=== PATIENT | male | born 1950 | race American Indian/Alaskan Native ===

== ENCOUNTER 2018-04-27 05:39 | Day surgery (SDC) | payer MEDICARE ==
[2018-04-27] MEDS ORDERED: ANCEF/STERILE WATER 2 GM/20 ML 2 GM/20 ML SYRINGE IV NR (06:00)
[2018-04-27] MEDS ORDERED: ANCEF/STERILE WATER 2 GM/20 ML 2 GM/20 ML SYRINGE IV SCH (06:00)
[2018-04-27] MEDS ORDERED: NACL 0.9% 1000 ML 1,000 ML IV SCH (06:00)
[2018-04-27] MEDS ORDERED: SUBLIMAZE IV PRN (07:09)
[2018-04-27] MEDS ORDERED: ZOFRAN IV PRN (07:09)
[2018-04-27] MEDS ORDERED: DILAUDID ONE (07:15)
[2018-04-27] MEDS ORDERED: DIPRIVAN 10 MG/ML IV ONE (07:15)
[2018-04-27] MEDS ORDERED: XYLOCAINE MPF 2% ONE (07:16)
--- NOTE | 2018-04-27 07:27 | Anesthesia Day of Surgery ---
Anesthesia Day of Surgery - Day of Surgery Patient Examined: Yes Patient H&P Reviewed: Yes Patient is NPO: Yes
--- NOTE | 2018-04-27 07:27 | Anesthesia Consultation ---
Anesthesia Consult and Med Hx Date of service: 04/27/18 - Airway Anesthetic Teeth Evaluation: Poor (multiple missing teeth), Partials ROM Head & Neck: Adequate Mental/Hyoid Distance: Adequate Mallampati Class: Class III Intubation Access Assessment: Possibly Difficult - Pre-Operative Health Status ASA Pre-Surgery Classification: ASA4 Proposed Anesthetic Plan: General - Pulmonary Hx Smoking: Yes (smokes cigars) Hx Respiratory Symptoms: No COPD: Yes Hx Sleep Apnea: Yes (No CPAP) - Cardiovascular System Hx Hypertension: Yes Hx Coronary Artery Disease: Yes Hx Cardia Arrhythmia: Yes (a-fib; took xarelto through today) Hx Pacemaker: Yes Hx Heart Murmur: No - Central Nervous System Hx Back Pain: Yes (gout) Hx Psychiatric Problems: No - Gastrointestinal Hx Gastroesophageal Reflux Disease: No - Endocrine Hx Renal Disease: Yes Hx End Stage Renal Disease: Yes (has not started HD yet) Hx Non-Insulin Dependent Diabetes: Yes (took jenuvia today) Hx Thyroid Disease: No - Other Systems Hx Alcohol Use: Yes ("not anymore") Hx Cancer: No Hx Obesity: Yes (BMI 47.5)
[2018-04-27] MEDS ORDERED: HEPARIN 10,000 UNITS/10 ML ONE (07:33)
[2018-04-27] MEDS ORDERED: NACL 0.9% 500 ML 500 ML ONE (07:35)
[2018-04-27] MEDS ORDERED: PROTAMINE SULFATE ONE (07:37)
[2018-04-27] MEDS ORDERED: PAPAVERINE ONE (07:38)
[2018-04-27] MEDS ORDERED: THROMBIN (BOVINE) TP ONE ×2 (07:39→08:30)
[2018-04-27] MEDS ORDERED: XYLOCAINE 1% 20 mL ONE (07:40)
[2018-04-27 07:43] LABS: Calcium 9.3 mg/dL (8.4-10.2)
[2018-04-27] MEDS ORDERED: GELFOAM TP ONE ×2 (07:43→08:30)
[2018-04-27] MEDS ORDERED: VERSED IV NR (08:00)
[2018-04-27 08:09] LABS: Basophils # (Auto) 0.1 K/mm3 (0.0-0.1); Basophils % (Auto) 0.7 % (0.0-1.8); Eosinophils # (Auto) 0.4 K/mm3 (0.0-0.4); Eosinophils % (Auto) 3.9 % (0.0-4.3); Hematocrit 24.7 % (35.5-45.6); Hemoglobin 8.2 gm/dl (11.8-15.2); Lymphocytes # (Auto) 2.4 K/mm3 (1.2-5.4); Lymphocytes % (Auto) 23.1 % (13.4-35.0); Mean Corpuscular HGB Conc 33 % (32-34); Mean Corpuscular Volume 85 fl (84-94); Platelet Count 170 K/mm3 (140-440); Red Blood Count 2.89 M/mm3 (3.65-5.03); Red Cell Distribution Width 14.6 % (13.2-15.2)
[2018-04-27] MEDS ORDERED: NACL 0.9% 250ML IV ONE (08:30)
[2018-04-27] MEDS ORDERED: HEPARIN 10,000 UNITS/10 ML IV ONE (08:30)
[2018-04-27] MEDS ORDERED: MARCAINE-EPI/PF 0.5%-1:200,000 INFILTRATI ONE (08:30)
[2018-04-27] MEDS ORDERED: XYLOCAINE 1% 20 mL INFILTRATI ONE (08:30)
[2018-04-27] MEDS ORDERED: ZEMURON IV ONE (08:55)
[2018-04-27] MEDS ORDERED: NEO SYNEPHRINE/NS Syringe(OR USE) IV ONE (09:21)
[2018-04-27] MEDS ORDERED: BLOXIVERZ ONE (10:37)
[2018-04-27] MEDS ORDERED: ROBINUL ONE (10:37)
[2018-04-27] MEDS ORDERED: ZOFRAN ONE (10:38)
--- NOTE | 2018-04-27 11:08 | Short Stay Summary ---
Short Stay Documentation Date of service: 04/27/18 - History H&P: obtained from office - Allergies and Medications Current Medications: Allergies nifedipine [From Procardia] Allergy (Verified 04/23/18 10:36) muscle spasms Home Medications Medication Instructions Recorded Confirmed Last Taken Type Allopurinol 100 mg PO DAILY 02/12/18 04/27/18 04/25/18 09:00 History Furosemide [Lasix] 80 mg PO DAILY 02/12/18 04/27/18 04/25/18 09:00 History Lisinopril [Zestril TAB] 10 mg PO DAILY 02/12/18 04/27/18 04/25/18 09:00 History Metformin HCl 500 mg PO DAILY 02/12/18 04/27/18 04/25/18 09:00 History Potassium Chloride [Klor-Con M20] 20 meq PO DAILY 02/12/18 04/27/18 04/25/18 09:00 History Rivaroxaban [Xarelto] 20 mg PO DAILY 02/12/18 04/27/18 04/25/18 09:00 History Sitagliptin Phosphate [Januvia] 100 mg PO DAILY 02/12/18 04/27/18 04/25/18 09:00 History metOLazone [Metolazone] 5 mg PO DAILY 02/12/18 04/27/18 04/25/18 09:00 History HYDROcodone/APAP 5-325 [[place] 1 each PO Q6HR PRN #30 tablet 02/16/18 04/27/18 09:00 Rx 5/325] Active Medications Fentanyl (Sublimaze) 50 mcg IV Q5MIN PRN PRN Reason: Pain , Severe (7-10) Stop: 04/27/18 18:00 Sodium Chloride (Nacl 0.9% 1000 Ml) 1,000 mls @ 42 mls/hr IV DIRECT ARSLAN Last Admin: 04/27/18 06:55 Dose: 42 mls/hr Documented by: Cefazolin Sodium (Ancef/Sterile Water 2 Gm/20 Ml) 2 gm in 20 mls @ 120 mls/hr IV PREOP ARSLAN Stop: 04/27/18 23:59 Midazolam HCl (Versed) 2 mg IV PREOP NR Stop: 04/27/18 23:59 Last Admin: 02/12/19 07:55 Dose: 2 mg Documented by: Ondansetron HCl (Zofran) 4 mg IV ONCE PRN PRN Reason: Nausea And Vomiting Stop: 04/27/18 16:00 - Brief post op/procedure progress note Date of procedure: 04/27/18 Pre-op diagnosis: failing AVF left arm Post-op diagnosis: same Procedure: elevation of left upper arm basilic vein fistula Anesthesia: GETA, local (1/2 percent marcaine w epi) Findings: excellent thrill in fistual, 2+ radial pulse at end of case Surgeon: REBECCA COLE Complaint Investigations Officer: SIM IGLESIAS Estimated blood loss: 50-100ml Pathology: none Condition: stable - Hospital course Hospital course: benign - Disposition Condition at discharge: Good Short Stay Discharge Plan Activity: advance as tolerated Diet: advance as tolerated Wound: per your surgeon's advice Follow up with: REBECCA COLE MD [Staff Physician] - 14 Days Prescriptions: HYDROcodone/APAP 7.5-325 [[place] 7.5/325] 1 each PO Q6HR PRN #30 tablet PRN Reason: Pain
--- NOTE | 2018-04-27 11:27 | Operative Report ---
Operative Report Operative Report: Date of procedure: 04/27/2018 Pre-operative diagnosis: Failing arteriovenous fistula left upper extremity Post-operative diagnosis: Same Procedure name(s): Creation of left upper extremity arteriovenous fistula by upper arm basilic vein transposition Surgeon: Laith Arrington MD Painter Decorator: Dr. Rebecca Logan Anesthesia: Gen. with local supplementation EBL: Less than 100 mL Operative indication: Patient is a 67-year-old man with end-stage renal failure. There is a maturing basilic vein fistula in the left upper extremity. This requires elevation for use. Findings: Excellent thrill in the fistula the end of the procedure. Easily palpable left radial pulse at the end of the procedure. Procedure: The patient was placed on the table in the supine position. General anesthesia was given. The area over the left arm was prepped with ChloraPrep solution and draped in the usual sterile fashion. Ultrasound guidance was used to identify the location of the basilic vein. The area around the incision site was infiltrated with 1% Marcaine with epinephrine. A linear incision was made along the medial portion of the upper arm over the basilic vein. Dissection was carried out to identify the vein. All nerve structures were spared. All branches of the fistula were taken down with clips and 3-0 silk ties. A subcutaneous tunnel was made on the anterior surface of the upper arm. The tunnel was infiltrated with 1% Marcaine with epinephrine. It was also infiltrated with Exparel. Patient was heparinized with 2000 units of intravenous heparin. The vein was occluded near the arterial anastomosis. The vein was divided and hydrodilated with heparinized saline. The vein was then tunneled through the subcutaneous tunnel and redilated with heparinized saline to prevent any kinks or twisting in the fistula. An end to end anastomosis was created in a beveled fashion between the 2 ends of the vein at the arterial side of the fistula. The fistula was flushed and vented to remove any air or debris and then flow was started into the fistula with the development of an immediate and excellent thrill over the entire body of the fistula in the upper arm. Meticulous hemostasis was obtained. The wound was infiltrated with Exparel. Closure was done with 3-0 Vicryl on the subcutaneous tissue. 4-0 subcuticular Monocryl was used to close the skin. Sterile dressings were applied. Sponge, needle, and instrument counts were reported as correct. The patient tolerated the procedure well and left the operating room with an easily palpable left radial pulse and an easily palpable thrill in the arteriovenous fistula.
[2018-04-27] MEDS ORDERED: NORCO 7.5/325 ONE (11:44)
[2018-04-27 11:50] VITALS: BP 110/57
[2018-04-27] MEDS ORDERED: NORCO 7.5/325 PO ONE (12:00)
--- NOTE | 2018-04-27 14:12 | Post Anesthesia Evaluation ---
- Post Anesthesia Evaluation Patient Participated: Yes Airway Patent: Yes Stable Respiratory Function: Yes Nausea/Vomiting: No Temp > 96.8F: Yes Pain Manageable: Yes Adequeate Hydration: Yes Anesthesia Complications: No
== END 2018-04-27 12:40 | disposition home or self-care (01) ==
LOC: OR 05:39
PROVIDERS: ATTEND Surgery Vascular Surgery
DX: I13.2 Hypertensive heart and chronic kidney disease with heart failure and with stage 5 chronic kidney disease, or end stage renal disease (principal); E11.22 Type 2 diabetes mellitus with diabetic chronic kidney disease; N18.6 End stage renal disease; I50.9 Heart failure, unspecified; E11.40 Type 2 diabetes mellitus with diabetic neuropathy, unspecified; I25.10 Atherosclerotic heart disease of native coronary artery without angina pectoris; G62.9 Polyneuropathy, unspecified; J44.9 Chronic obstructive pulmonary disease, unspecified; E66.9 Obesity, unspecified; F17.210 Nicotine dependence, cigarettes, uncomplicated; M19.90 Unspecified osteoarthritis, unspecified site; Z72.89 Other problems related to lifestyle; Z95.0 Presence of cardiac pacemaker; Z68.42 Body mass index [BMI] 45.0-49.9, adult; Z98.890 Other specified postprocedural states; Z79.899 Other long term (current) drug therapy; Z79.84 Long term (current) use of oral hypoglycemic drugs; Z88.8 Allergy status to other drugs, medicaments and biological substances
CPT/HCPCS: 36415; 36821; 80048; 82962; 85025; A4649; C1757; J0690; J1170; J1644; J2250; J2370; J2405; J2704; J2710; J3010; J7030; J7040; J7050; J2440; J2720

== ENCOUNTER 2020-07-05 14:45 | Inpatient (IN) | payer MEDICARE ==
[2020-07-05] MEDS ORDERED: MORPHINE 4 MG/1 ML INJ IV ONE (20:26)
[2020-07-05] MEDS ORDERED: ONDANSETRON 4 MG/2 ML INJ IV ONE (20:26)
--- NOTE | 2020-07-05 20:29 | Emergency Department Report ---
<RACHELE GARNER III - Last Filed: 07/05/20 22:57> ED General Adult HPI - General Chief complaint: Skin/Abscess/Foreign Body Stated complaint: BIG BUMP IN GROIN Time Seen by Provider: 07/05/20 19:49 - Related Data Home Medications Medication Instructions Recorded Confirmed Last Taken Furosemide [Lasix TAB] 80 mg PO DAILY 02/12/18 04/27/18 04/25/18 09:00 Metformin HCl 500 mg PO DAILY 02/12/18 04/27/18 04/25/18 09:00 Potassium Chloride [Klor-Con M20] 20 meq PO DAILY 02/12/18 04/27/18 04/25/18 09:00 Rivaroxaban [Xarelto] 20 mg PO DAILY 02/12/18 04/27/18 04/25/18 09:00 Sitagliptin Phosphate [Januvia] 100 mg PO DAILY 02/12/18 04/27/18 04/25/18 09:00 allopurinoL [Allopurinol] 100 mg PO DAILY 02/12/18 04/27/18 04/25/18 09:00 lisinopriL [Zestril TAB] 10 mg PO DAILY 02/12/18 04/27/18 04/25/18 09:00 metOLazone [Metolazone] 5 mg PO DAILY 02/12/18 04/27/18 04/25/18 09:00 Previous Rx's Medication Instructions Recorded Last Taken Type HYDROcodone/APAP 5-325 [[place] 1 each PO Q6HR PRN #30 tablet 02/16/18 04/25/18 09:00 Rx 5/325] HYDROcodone/APAP 7.5-325 [[place] 1 each PO Q6HR PRN #30 tablet 04/27/18 Unknown Rx 7.5/325] Allergies Allergy/AdvReac Type Severity Reaction Status Date / Time nifedipine [From Procardia] Allergy muscle Verified 07/05/20 15:30 spasms ED Past Medical Hx - Medications Home Medications: Home Medications Medication Instructions Recorded Confirmed Last Taken Type Furosemide [Lasix TAB] 80 mg PO DAILY 02/12/18 04/27/18 04/25/18 09:00 History Metformin HCl 500 mg PO DAILY 02/12/18 04/27/18 04/25/18 09:00 History Potassium Chloride [Klor-Con M20] 20 meq PO DAILY 02/12/18 04/27/18 04/25/18 09:00 History Rivaroxaban [Xarelto] 20 mg PO DAILY 02/12/18 04/27/18 04/25/18 09:00 History Sitagliptin Phosphate [Januvia] 100 mg PO DAILY 02/12/18 04/27/18 04/25/18 09:00 History allopurinoL [Allopurinol] 100 mg PO DAILY 02/12/18 04/27/18 04/25/18 09:00 History lisinopriL [Zestril TAB] 10 mg PO DAILY 02/12/18 04/27/18 04/25/18 09:00 History metOLazone [Metolazone] 5 mg PO DAILY 02/12/18 04/27/18 04/25/18 09:00 History HYDROcodone/APAP 5-325 [[place] 1 each PO Q6HR PRN #30 tablet 02/16/18 04/27/18 04/25/18 09:00 Rx 5/325] HYDROcodone/APAP 7.5-325 [[place] 1 each PO Q6HR PRN #30 tablet 04/27/18 Unknown Rx 7.5/325] ED Course - Reevaluation(s) Reevaluation #1: I reviewed the findings and management of this patient in real-time and I have personally seen and examined this patient and participated in the decision making for this patient with the midlevel. Patient is a 69-year-old male who presents emergency room with complaints of left inguinal pain. Patient had a CT scan of the abdomen and it shows a left inguinal hernia with bowel and fat necrosis. I examined the patient. Patient's lung sounds are clear. Patient CV exam shows normal S1-S2. Abdominal exam is negative except for tenderness over the inguinal crease. Patient also found to have a periumbilical hernia that is nontender. I attempted to place the patient and Trendelenburg and reduce the inguinal hernia and the patient was unable to tolerate due to tenderness and the hernia was not reducible. 07/05/20 22:20 Reevaluation #2: I discussed all results with patient. I discussed plan of care with patient. Patient agrees with plan of care and admission. Patient to be admitted to the hospitalist service. 04/22/21 22:59 - Consultations Consultation #1: I discussed the case with general surgery, Dr. Zapata. Dr. Zapata wants patient mated to the hospital service for further evaluation and treatment. Dr. Zapata states she will see the patient in the morning. 07/05/20 22:32 Consultation #2: Hospitalist consulted for admission. Hospitalist to admit patient. 07/05/20 22:59 ED Medical Decision Making - Lab Data Result diagrams: 07/05/20 20:43 07/05/20 21:23 Critical Care Time: Yes Critical care time in (mins) excluding proc time.: 35 Critical Care Time: 35 minutes ED Disposition Clinical Impression: Incarcerated inguinal hernia, ESRD (end stage renal disease) Abdominal pain Qualifiers: Abdominal location: lower abdomen, unspecified Qualified Code(s): R10.30 - Lower abdominal pain, unspecified Disposition: -09 OP ADMIT IP TO THIS HOSP Is pt being admited?: Yes Does the pt Need Aspirin: No Condition: Critical Time of Disposition: 23:00 <OLIVIA RETANA - Last Filed: 07/06/20 00:45> ED General Adult HPI - General Source: patient Mode of arrival: Ambulatory Limitations: No Limitations - History of Present Illness Initial comments: 69-year-old male patient with history of end-stage renal disease (on dialysis) and umbilical hernia presents to the emergency department with complaints of nontraumatic left inguinal pain/swelling starting 4 days ago. He also endorses right testicular pain and painful urination. Denies fever, chills, nausea, vomiting, diarrhea, constipation, urinary retention, hematuria, penile discharge, testicular swelling. Denies other complaints at this time. ED Review of Systems ROS: Stated complaint: BIG BUMP IN GROIN Other details as noted in HPI Other: GENERAL: Negative for fever, chills, weight change, anorexia, fatigue. ENT: Negative for ear pain, difficulty hearing, sore throat, nasal congestion, epistaxis. CARDIOVASCULAR: Negative for chest pain, palpitations, lower extremity swelling. PULMONARY: Negative for cough, dyspnea, wheezing, orthopnea, cyanosis. GASTROINTESTINAL: Negative for abdominal pain, nausea, vomiting, diarrhea, constipation. GENITOURINARY: Positive for dysuria, testicular pain, inguinal pain/swelling. MUSCULOSKELETAL: Negative for joint pain, joint swelling, myalgias, back pain, neck pain. NEUROLOGICAL: Negative for headache, seizure, syncope, paresthesias, weakness. INTEGUMENTARY: Negative for erythema, rash, diaphoresis, laceration, ecchymosis. HEMATOLOGICAL: Negative for hemoptysis, hematemesis, hematochezia, hematuria. PSYCHIATRIC: Negative for hallucinations, suicidal ideation, homicidal ideation, anxiety, depression. ED Past Medical Hx - Past Medical History Hx Hypertension: Yes Hx Congestive Heart Failure: Yes Hx Diabetes: Yes Hx Renal Disease: Yes (DIALYSIS) Hx Arthritis: Yes (All joints) Hx COPD: Yes - Surgical History Hx Pacemaker: Yes - Social History Smoking Status: Current Some Day Smoker ED Physical Exam - General Limitations: No Limitations - Other Other exam information: General: Awake and alert. No acute distress. Head: Atraumatic, normocephalic. Eyes: EOMI. Pupils are equal and round. Normal sclera and conjunctiva. ENT: Oral mucosa is moist. Normal pharyngeal exam. Neck: Supple. No lymphadenopathy. Pulmonary: No respiratory distress. Clear to auscultation bilaterally. Cardiac: Regular rate and rhythm. Pulses are palpable and equal bilaterally. No lower extremity cyanosis or edema. Skin: Warm and dry. No rashes. Abdomen: There is a nonreducible periumbilical hernia without overlying tenderness. There is also a nonreducible left inguinal hernia with significant tenderness. Abdomen is otherwise soft, nondistended. Bowel sounds present. Pain is appropriately proportional to exam findings. Back: Normal alignment. No CVA tenderness. Extremities: Symmetrical. Full range of motion intact. Neurological: Alert and oriented, appropriately interactive, no focal deficits. Psych: Cooperative. Appropriate mood and affect. Speech is evenly metered. Thoughts are logically construed. ED Course Vital Signs 07/05/20 15:28 Temperature 97.9 F Pulse Rate 101 H Respiratory 24 Rate Blood Pressure 135/66 O2 Sat by Pulse 75 L Oximetry ED Medical Decision Making - Lab Data Result diagrams: 07/05/20 20:43 07/05/20 21:23 - Radiology Data [facility] [address] [place] [address] Cat Scan Report Signed Patient: BASILIO STANLEY MR#: [id number] : 1950 Acct:[id number] Age/Sex: 69 / M ADM Date: 07/05/20 Loc: ED Attending Dr: Ordering Physician: AAMIR SAWANT Date of Service: 07/05/20 Procedure(s): CT abdomen pelvis wo con Accession Number(s): [id number] cc: AAMIR SAWANT CT ABDOMEN AND PELVIS WITHOUT CONTRAST INDICATION / CLINICAL INFORMATION: LEFT Inguinal mass - possible hernia. TECHNIQUE: Axial CT images were obtained through the abdomen and pelvis without IV contrast. All CT scans at this location are performed using CT dose reduction for ALARA by means of automated exposure control. COMPARISON: 06/13/2012 FINDINGS: LOWER CHEST: Mild subsegmental right lower lung atelectasis. Mild coronary artery atherosclerotic calcification. HEPATOBILIARY: Tiny calcified gallstones. No biliary ductal dilatation. No significant focal hepatic abnormality. PANCREAS/SPLEEN/ADRENALS: No significant abnormality. GENITOURINARY: Renal morphology suggests chronic medical disease. No obstructive uropathy or nephrolithiasis. Ureters demonstrate no significant abnormality. Bladder demonstrates no significant abnormality. GASTROINTESTINAL/MESENTERY: No bowel obstruction or inflammation. Medium-sized left inguinal hernia containing a loop of the distal descending/proximal sigmoid colon evidence of obstruction. Mild associated mesenteric fat necrosis. No free air or significant free fluid. RETROPERITONEUM: No significant adenopathy. REPRODUCTIVE ORGANS: No significant abnormality. VASCULAR: No significant abnormality. BODY WALL: Medium-sized fat-containing periumbilical hernia with mild fat necrosis. SKELETAL SYSTEM: Diffuse degenerative changes without acute fracture or aggressive appearing osseous lesion. IMPRESSION: 1. Medium-sized left inguinal hernia containing a loop of distal colon without evidence of obstruction. Mild associated mesenteric fat necrosis is present. 2. Cholelithiasis. 3. Medium-sized fat-containing periumbilical hernia with mild fat necrosis. 4. Additional findings as above. Signer Name: Jacques Dey MD Signed: 07/05/2020 9:38 PM Workstation Name: [id number] Transcribed By: RH Dictated By: JACQUES DEY III Electronically Authenticated By: JACQUES DEY III Signed Date/Time: 07/05/202137 DD/ 31 TD/TT: - Medical Decision Making Differential diagnosis including but not limited to: incarcerated hernia, str angulated hernia, mesenteric ischemia, bowel obstruction, bowel perforation, volvulus, malignancy, peritonitis On reevaluation, patient remains stable. Repeat abdominal exam without signs of peritonitis. CT of the abdomen/pelvis performed without contrast (due to patient's renal dysfunction) demonstrates medium size left inguinal and periumbilical hernias. Left inguinal hernia contains a loop of distal colon with surrounding mesenteric fat necrosis. No evidence of strangulation. Multiple attempts to reduce hernia at the bedside were unsuccessful. Case was discussed with Dr. Zapata, general surgery, who agrees to evaluate the patient on admission and recommends admitting the patient to the hospital medicine service. Case discussed with Dr. Cooper, hospitalist, who agrees to admit. Aamir bray expressed understanding and is agreeable to plan of care. Case discussed with Dr. Garner, attending emergency physician, who personally examined the patient and agrees with diagnostic work-up/plan of care. Critical care attestation.: If time is entered above; I have spent that time in minutes in the direct care of this critically ill patient, excluding procedure time. ED Disposition Is pt being admited?: Yes Does the pt Need Aspirin: No
[2020-07-05 21:00] LABS: Red Blood Count 3.85 M/mm3 (3.65-5.03)
[2020-07-05 21:01] LABS: Hematocrit 36.7 % (35.5-45.6); Hemoglobin 11.9 gm/dl (11.8-15.2); Mean Corpuscular HGB Conc 33 % (32-34); Mean Corpuscular Volume 95 fl (84-94); Platelet Count 284 K/mm3 (140-440); Red Cell Distribution Width 15.1 % (13.2-15.2)
[2020-07-05 21:02] LABS: Basophils % (Auto) 0.9 % (0.0-1.8); Eosinophils % (Auto) 2.4 % (0.0-4.3); Lymphocytes # (Auto) 1.6 K/mm3 (1.2-5.4); Lymphocytes % (Auto) 16.9 % (13.4-35.0); Monocytes % (Auto) 11.1 % (0.0-7.3)
[2020-07-05 21:03] LABS: Basophils # (Auto) 0.1 K/mm3 (0.0-0.1); Eosinophils # (Auto) 0.2 K/mm3 (0.0-0.4)
--- NOTE | 2020-07-05 21:43 | Cat Scan Report ---
CT ABDOMEN AND PELVIS WITHOUT CONTRAST INDICATION / CLINICAL INFORMATION: LEFT Inguinal mass - possible hernia. TECHNIQUE: Axial CT images were obtained through the abdomen and pelvis without IV contrast. All CT scans at [facility] location are performed using CT dose reduction for ALARA by means of automated exposure control. COMPARISON: 06/13/2012 FINDINGS: LOWER CHEST: Mild subsegmental right lower lung atelectasis. Mild coronary artery atherosclerotic princess cification. HEPATOBILIARY: Tiny calcified gallstones. No biliary ductal dilatation. No significant focal hepatic abnormality. PANCREAS/SPLEEN/ADRENALS: No significant abnormality. GENITOURINARY: Renal morphology suggests chronic medical disease. No obstructive uropathy or nephroli thiasis. Ureters demonstrate no significant abnormality. Bladder demonstrates no significant abnormal ity. GASTROINTESTINAL/MESENTERY: No bowel obstruction or inflammation. Medium-sized left inguinal hernia c ontaining a loop of the distal descending/proximal sigmoid colon evidence of obstruction. Mild associ ated mesenteric fat necrosis. No free air or significant free fluid. RETROPERITONEUM: No significant adenopathy. REPRODUCTIVE ORGANS: No significant abnormality. VASCULAR: No significant abnormality. BODY WALL: Medium-sized fat-containing periumbilical hernia with mild fat necrosis. SKELETAL SYSTEM: Diffuse degenerative changes without acute fracture or aggressive appearing osseous lesion. IMPRESSION: 1. Medium-sized left inguinal hernia containing a loop of distal colon without evidence of obstructio n. Mild associated mesenteric fat necrosis is present. 2. Cholelithiasis. 3. Medium-sized fat-containing periumbilical hernia with mild fat necrosis. 4. Additional findings as above. Signer Name: Ayo Dey MD Signed: 07/05/2020 9:38 PM Workstation Name: [id number]
[2020-07-05 21:52] LABS: Albumin 4.1 g/dL (3.9-5); Calcium 9.4 mg/dL (8.4-10.2)
[2020-07-05] MEDS ORDERED: ONDANSETRON 4 MG/2 ML INJ IV PRN (23:20)
[2020-07-05] MEDS ORDERED: ACETAMINOPHEN 325 MG TAB PO PRN (23:20)
--- NOTE | 2020-07-05 23:29 | History and Physical Report ---
History of Present Illness Date of examination: 07/05/20 Date of admission: 07/05/20 Chief complaint: Big bump in the groin History of present illness: 69-year-old male patient with history of end-stage renal disease on dialysis and umbilical hernia presents to the emergency department with complaints of nontraumatic left inguinal pain/swelling for the 4 days. He also endorses right testicular pain and painful urination. Denies fever, chills, nausea, vomiting, diarrhea, constipation, urinary retention, hematuria, penile discharge, testicular swelling. Denies other complaints at this time. In the emergency room CT scan of the abdomen shows medium sized left inguinal hernia containing a loop of distal colon without evidence of obstruction mild associated mesenteric fat necrosis is present. Cholelithiasis. Medium sized fat-containing periumbilical hernia with mild fat necrosis Past History Past Medical History: arthritis, COPD, diabetes, heart failure, hypertension, renal failure Medications and Allergies Allergies Allergy/AdvReac Type Severity Reaction Status Date / Time nifedipine [From Procardia] Allergy muscle Verified 07/05/20 15:30 spasms Home Medications Medication Instructions Recorded Confirmed Last Taken Type Furosemide [Lasix TAB] 80 mg PO DAILY 02/12/18 04/27/18 04/25/18 09:00 History Metformin HCl 500 mg PO DAILY 02/12/18 04/27/18 04/25/18 09:00 History Potassium Chloride [Klor-Con M20] 20 meq PO DAILY 02/12/18 04/27/18 04/25/18 09:00 History Rivaroxaban [Xarelto] 20 mg PO DAILY 02/12/18 04/27/18 04/25/18 09:00 History Sitagliptin Phosphate [Januvia] 100 mg PO DAILY 02/12/18 04/27/18 04/25/18 09:00 History allopurinoL [Allopurinol] 100 mg PO DAILY 02/12/18 04/27/18 04/25/18 09:00 History lisinopriL [Zestril TAB] 10 mg PO DAILY 02/12/18 04/27/18 04/25/18 09:00 History metOLazone [Metolazone] 5 mg PO DAILY 02/12/18 04/27/18 04/25/18 09:00 History HYDROcodone/APAP 5-325 [[place] 1 each PO Q6HR PRN #30 tablet 12/04/18 02/12/19 02/10/19 09:00 Rx 5/325] HYDROcodone/APAP 7.5-325 [[place] 1 each PO Q6HR PRN #30 tablet 04/27/18 Unknown Rx 7.5/325] Active Meds: Active Medications Acetaminophen (Acetaminophen 325 Mg Tab) 650 mg PO Q4H PRN PRN Reason: Pain MILD(1-3)/Fever >100.5/CHANG Albuterol/Ipratropium (Ipratropium/Albuterol Sulfate 3 Ml Ampul.Neb) 1 ampul IH Q6HRT ARSLAN Dextrose (Dextrose 50% In Water (25gm) 50 Ml Syringe) 50 ml IV Q30MIN PRN; Protocol PRN Reason: Hypoglycemia Famotidine (Famotidine 20 Mg/2 Ml Inj) 20 mg IV BID ARSLAN Sodium Chloride (Nacl 0.9% 1000 Ml) 1,000 mls @ 42 mls/hr IV DIRECT ARSLAN Insulin Human Lispro (Insulin Lispro 100 Unit/Ml) 0 unit SUB-Q Q6HR ARSLAN; Protocol Morphine Sulfate (Morphine 2 Mg/1 Ml Inj) 2 mg IV Q4H PRN PRN Reason: Pain, Moderate (4-6) Ondansetron HCl (Ondansetron 4 Mg/2 Ml Inj) 4 mg IV Q8H PRN PRN Reason: Nausea And Vomiting Sodium Chloride (Sodium Chloride 0.9% 10 Ml Flush Syringe) 10 ml IV BID ARSLAN Sodium Chloride (Sodium Chloride 0.9% 10 Ml Flush Syringe) 10 ml IV PRN PRN PRN Reason: LINE FLUSH Review of Systems Gastrointestinal: abdominal pain, other (Big bump in the left groin) Exam - Constitutional Vitals: Temp Pulse Resp BP Pulse Ox 97.9 F 101 H 24 135/66 75 L 07/05/20 15:28 07/05/20 15:28 07/05/20 15:28 07/05/20 15:28 07/05/20 15:28 General appearance: Present: no acute distress, well-nourished - EENT Eyes: Present: PERRL ENT: hearing intact, clear oral mucosa - Neck Neck: Present: supple, normal ROM - Respiratory Respiratory effort: normal Respiratory: bilateral: CTA - Cardiovascular Heart Sounds: Present: S1 & S2. Absent: rub, click - Extremities Extremities: pulses symmetrical, No edema Peripheral Pulses: within normal limits - Abdominal General gastrointestinal: Present: soft, non-tender, non-distended, normal bowel sounds, hernia, other (Big bump in the left groin) Male genitourinary: Present: normal - Integumentary Integumentary: Present: clear, warm, dry - Musculoskeletal Musculoskeletal: gait normal, strength equal bilaterally - Psychiatric Psychiatric: appropriate mood/affect, intact judgment & insight - Neurologic Neurologic: CNII-XII intact, moves all extremities Results - Labs CBC & Chem 7: 07/05/20 20:43 07/05/20 21:23 Labs: Laboratory Last Values WBC 9.5 K/mm3 (4.5-11.0) 07/05/20 20:43 RBC 3.85 M/mm3 (3.65-5.03) 07/05/20 20:43 Hgb 11.9 gm/dl (11.8-15.2) 07/05/20 20:43 Hct 36.7 % (35.5-45.6) 07/05/20 20:43 MCV 95 fl (84-94) H 07/05/20 20:43 MCH 31 pg (28-32) 07/05/20 20:43 MCHC 33 % (32-34) 07/05/20 20:43 RDW 15.1 % (13.2-15.2) 07/05/20 20:43 Plt Count 284 K/mm3 (140-440) 07/05/20 20:43 Lymph % (Auto) 16.9 % (13.4-35.0) 07/05/20 20:43 [place] % (Auto) 11.1 % (0.0-7.3) H 07/05/20 20:43 Eos % (Auto) 2.4 % (0.0-4.3) 07/05/20 20:43 Baso % (Auto) 0.9 % (0.0-1.8) 07/05/20 20:43 Lymph # (Auto) 1.6 K/mm3 (1.2-5.4) 07/05/20 20:43 [place] # (Auto) 1.0 K/mm3 (0.0-0.8) H 07/05/20 20:43 Eos # (Auto) 0.2 K/mm3 (0.0-0.4) 07/05/20 20:43 Baso # (Auto) 0.1 K/mm3 (0.0-0.1) 07/05/20 20:43 Seg Neutrophils % 68.7 % (40.0-70.0) 07/05/20 20:43 Seg Neutrophils # 6.5 K/mm3 (1.8-7.7) 07/05/20 20:43 Sodium 132 mmol/L (137-145) L 07/05/20 21:23 Potassium 4.2 mmol/L (3.6-5.0) 07/05/20 21:23 Chloride 95.3 mmol/L (98-107) L 07/05/20 21: Carbon Dioxide 23 mmol/L (22-30) 07/05/20 21:23 Anion Gap 18 mmol/L 07/05/20 21:23 BUN 38 mg/dL (9-20) H 07/05/20 21: Creatinine 6.9 mg/dL (0.8-1.3) H 07/05/20 21:23 Estimated GFR 10 ml/min 07/05/20 21:23 BUN/Creatinine Ratio 6 % 07/05/20 21: Glucose 82 mg/dL (75-100) 07/05/20 21: Lactic Acid 1.80 mmol/L (0.7-2.0) 07/05/20 20:43 Calcium 9.4 mg/dL (8.4-10.2) 07/05/20 21: Magnesium 2.10 mg/dL (1.7-2.3) 07/05/20 21: Total Bilirubin 0.40 mg/dL (0.1-1.2) 07/05/20 21: AST 25 units/L (5-40) 07/05/20 21: ALT 14 units/L (7-56) 07/05/20 21: Alkaline Phosphatase 97 units/L (35-129) 07/05/20 21:23 Total Protein 8.1 g/dL (6.3-8.2) 07/05/20 21:23 Albumin 4.1 g/dL (3.9-5) 07/05/20 21:23 Albumin/Globulin Ratio 1.0 % 07/05/20 21:23 - Imaging and Cardiology CT scan - abdomen: image reviewed Assessment and Plan VTE prophylaxis?: Chemical Plan of care discussed with patient/family: Yes - Patient Problems (1) Incarcerated inguinal hernia Current Visit: Yes Status: Acute Plan to address problem: Admit the patient to the medical telemetry. Nothing by mouth. Normal saline at the rate of 42 cc/h. Pepcid 20 mg IV every 12 hours. Will consult surgery for evaluation and possible surgery. We will hold the anticoagulation Xarelto. Check CBC BMP in the morning (2) Abdominal pain Current Visit: Yes Status: Acute Qualifiers: Abdominal location: lower abdomen, unspecified Qualified Code(s): R10.30 - Lower abdominal pain, unspecified Plan to address problem: N.p.o. Normal saline at the rate of 42 cc/h. Tylenol 650 mg p.o. every 6 hours as needed. Morphine 2 mg IV every 4 hours as needed. Will consult surgery for evaluation (3) Hypertension Current Visit: Yes Status: Acute Plan to address problem: Hydralazine 10 mg IV every 6 hours as needed. We will monitor the blood pressure closely. (4) COPD (chronic obstructive pulmonary disease) Current Visit: Yes Status: Acute Plan to address problem: Stable. Oxygen by nasal cannula 3 L/min. DuoNeb by nebulizer every 4 hours as needed. (5) ESRD (end stage renal disease) Current Visit: Yes Status: Acute Plan to address problem: Patient has end-stage renal disease and patient is on dialysis. We discontinue the Lasix and lisinopril. We consulted nephrology for evaluation and possible hemodialysis. BMP in the morning (6) Diabetes Current Visit: Yes Status: Acute Plan to address problem: We put the patient insulin sliding scale as per protocol and consult dietitian for diabetic education (7) DVT prophylaxis Current Visit: Yes Status: Acute Plan to address problem: We will hold the Xarelto for possible surgery in the morning. Patient is on SCD for DVT prophylaxis. Pepcid 20 mg IV twice daily for GI prophylaxis. Patient is a full code
[2020-07-05] MEDS ORDERED: SODIUM CHLORIDE 0.9% 1000 ML 1,000 ML IV SCH (23:30)
[2020-07-06] MEDS: MORPHINE 2 MG/1 ML INJ IV PRN ×3 (03:01→23:59)
[2020-07-06 05:23] LABS: Bacteria,Urine 3+ /HPF (Negative); Bilirubin,Urine NEG (Negative); Blood,Urine SM (Negative); Color,Urine Yellow (Yellow); Mucus,Urine FEW /HPF; Sperm,Urine 1+ /HPF (NP); Urobilinogen,Urine < 2.0 mg/dL (<2.0)
[2020-07-06 05:25] LABS: WBC,Urine > 182.0 /HPF (0.0-6.0)
[2020-07-06] MEDS: DEXTROSE 50% IN WATER (25GM) 50 ML SYRINGE IV PRN (06:28)
[2020-07-06] MEDS: INSULIN LISPRO 100 UNIT/ML SUB-Q SCH ×3 (07:45→18:29)
[2020-07-06] MEDS: IPRATROPIUM/ALBUTEROL SULFATE 3 ML AMPUL.NEB IH SCH ×4 (08:24→20:33)
[2020-07-06] MEDS ORDERED: BUPIVACAINE/PF (0.5%) 5 MG/1 ML 30 ML VIAL INFILTRATI ONE (08:31)
[2020-07-06] MEDS ORDERED: LIDOCAINE (1%) 10 MG/1 ML VIAL 20 ML MDV ONE (08:31)
[2020-07-06] MEDS: FAMOTIDINE 20 MG/2 ML INJ IV SCH (09:07)
--- NOTE | 2020-07-06 09:48 | Consultation ---
History of Present Illness Consult date: 07/06/20 Reason for consult: abdominal pain Chief complaint: Left groin pain, hernia - History of present illness History of present illness: 69-year-old male with a past medical history of end-stage renal disease on hemodialysis, CHF, atrial fibrillation on Xarelto, CAD who presented to the emergency room with complaints of left-sided groin pain. The patient states he has a known history of a left inguinal hernia for the past 3 to 4 days it has been more painful. He also notes a hernia at his umbilicus which he states is not symptomatic. Patient states that he has been having sharp pain in the area. He denies abdominal pain, nausea, vomiting. He states he has been having normal bowel movements and passing flatus. He has been tolerating a diet. He states that his last dose of Xarelto was yesterday. The patient is a poor historia and most of his past medical history is obtained from the chart. 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 He knows that he has CHF but does not know how well his heart is functioning. This morning he had a 22 beat run of V. tach. Surgery consulted for evaluation of left inguinal hernia. Past History Past Medical History: atrial fib, arthritis, CAD, COPD, diabetes, dialysis, ESRD, heart failure, hypertension, renal failure, other (Morbid obesity) Past Surgical History: Other (Achilles tendon repair x2, knee surgery, fistula) Social history: no significant social history Family history: no significant family history Medications and Allergies Allergies Allergy/AdvReac Type Severity Reaction Status Date / Time nifedipine [From Procardia] Allergy muscle Verified 07/05/20 15:30 spasms Home Medications Medication Instructions Recorded Confirmed Last Taken Type Furosemide [Lasix TAB] 80 mg PO DAILY 02/12/18 04/27/18 04/25/18 09:00 History Metformin HCl 500 mg PO DAILY 02/12/18 04/27/18 04/25/18 09:00 History Potassium Chloride [Klor-Con M20] 20 meq PO DAILY 02/12/18 04/27/18 04/25/18 09:00 History Rivaroxaban [Xarelto] 20 mg PO DAILY 02/12/18 04/27/18 04/25/18 09:00 History Sitagliptin Phosphate [Januvia] 100 mg PO DAILY 02/12/18 04/27/1819 09:00 History allopurinoL [Allopurinol] 100 mg PO DAILY 02/12/18 04/27/18 04/25/18 09:00 History lisinopriL [Zestril TAB] 10 mg PO DAILY 02/12/18 04/27/18 04/25/18 09:00 History metOLazone [Metolazone] 5 mg PO DAILY 02/12/18 04/27/18 04/25/18 09:00 History HYDROcodone/APAP 5-325 [[place] 1 each PO Q6HR PRN #30 tablet 02/16/18 04/27/18 04/25/18 09:00 Rx 5/325] HYDROcodone/APAP 7.5-325 [[place] 1 each PO Q6HR PRN #30 tablet 04/27/18 Unknown Rx 7.5/325] Active Meds: Active Medications Acetaminophen (Acetaminophen 325 Mg Tab) 650 mg PO Q4H PRN PRN Reason: Pain MILD(1-3)/Fever >100.5/CHANG Albuterol/Ipratropium (Ipratropium/Albuterol Sulfate 3 Ml Ampul.Neb) 1 ampul IH Q6HRT [facility] Last Admin: 07/06/20 08:24 Dose: 1 ampul Documented by: Dextrose (Dextrose 50% In Water (25gm) 50 Ml Syringe) 50 ml IV Q30MIN PRN; Protocol PRN Reason: Hypoglycemia Last Admin: 07/06/20 06:28 Dose: 50 ml Documented by: Famotidine (Famotidine 20 Mg/2 Ml Inj) 20 mg IV DAILY [facility] Last Admin: 07/06/20 09:07 Dose: 20 mg Documented by: Sodium Chloride (Nacl 0.9% 1000 Ml) 1,000 mls @ 42 mls/hr IV DIRECT [facility] Last Admin: 07/06/20 03:17 Dose: 42 mls/hr Documented by: Insulin Human Lispro (Insulin Lispro 100 Unit/Ml) 0 unit SUB-Q Q6HR ARSLAN; Protocol Last Admin: 07/06/20 07:45 Dose: Not Given Documented by: Morphine Sulfate (Morphine 2 Mg/1 Ml Inj) 2 mg IV Q4H PRN PRN Reason: Pain, Moderate (4-6) Last Admin: 07/06/20 03:01 Dose: 2 mg Documented by: Ondansetron HCl (Ondansetron 4 Mg/2 Ml Inj) 4 mg IV Q8H PRN PRN Reason: Nausea And Vomiting Sodium Chloride (Sodium Chloride 0.9% 10 Ml Flush Syringe) 10 ml IV BID ARSLAN Last Admin: 07/06/20 09:07 Dose: 10 ml Documented by: Sodium Chloride (Sodium Chloride 0.9% 10 Ml Flush Syringe) 10 ml IV PRN PRN PRN Reason: LINE FLUSH Review of Systems All systems: negative (10 point ROS performed and negative except for that listed in HPI) Exam Vital Signs Temp Pulse Resp BP Pulse Ox 97.9 F 101 H 24 135/66 75 L 07/05/20 15:28 07/05/20 15:28 07/05/20 15:28 07/05/20 15:07/05/20 15:28 Narrative exam: Gen.: Awake, alert, oriented 3. No apparent distress ENT: Trachea midline. No lymphadenopathy. No scleral icterus or conjunctival pallor CV: S1, S2 present Respiratory: No audible wheezes Abdomen: Soft, nondistended, nontender, obese. There is a nonreducible umbilical hernia containing fat. There are no skin changes or tenderness to palpation. No rebound, rigidity, guarding : There is a left inguinal hernia which is not reducible. There is moderate tenderness to palpation during reduction attempt. There are no skin changes. No hernia palpated on the right. Extremities: No clubbing, cyanosis, edema Results - Labs 07/05/20 20:43 07/05/20 21:23 Abnormal lab results 07/05/20 07/05/20 07/06/20 Range/Units 20:43 21:23 04:58 MCV 95 H (84-94) fl [place] % (Auto) 11.1 H (0.0-7.3) % [place] # (Auto) 1.0 H (0.0-0.8) K/mm3 Sodium 132 L (137-145) mmol/L Chloride 95.3 L (98-107) mmol/L BUN 38 H (9-20) mg/dL Creatinine 6.9 H (0.8-1.3) mg/dL POC Glucose (70-105) mg/dL Urine WBC (Auto) > 182.0 H (0.0-6.0) /HPF 07/06/20 Range/Units 06:24 MCV (84-94) fl [place] % (Auto) (0.0-7.3) % [place] # (Auto) (0.0-0.8) K/mm3 Sodium (137-145) mmol/L Chloride (98-107) mmol/L BUN (9-20) mg/dL Creatinine (0.8-1.3) mg/dL POC Glucose 69 L (70-105) mg/dL Urine WBC (Auto) (0.0-6.0) /HPF Diabetes panel 07/05/20 Range/Units 21:23 Sodium 132 L (137-145) mmol/L Potassium 4.2 (3.6-5.0) mmol/L Chloride 95.3 L (98-107) mmol/L Carbon Dioxide 23 (22-30) mmol/L BUN 38 H (9-20) mg/dL Creatinine 6.9 H (0.8-1.3) mg/dL Glucose 82 (75-100) mg/dL Calcium 9.4 (8.4-10.2) mg/dL AST 25 (5-40) units/L ALT 14 (7-56) units/L Alkaline Phosphatase 97 (35-129) units/L Total Protein 8.1 (6.3-8.2) g/dL Albumin 4.1 (3.9-5) g/dL Calcium panel 07/05/20 Range/Units 21:23 Calcium 9.4 (8.4-10.2) mg/dL Albumin 4.1 (3.9-5) g/dL Pituitary panel 07/05/20 Range/Units 21:23 Sodium 132 L (137-145) mmol/L Potassium 4.2 (3.6-5.0) mmol/L Chloride 95.3 L (98-107) mmol/L Carbon Dioxide 23 (22-30) mmol/L BUN 38 H (9-20) mg/dL Creatinine 6.9 H (0.8-1.3) mg/dL Glucose 82 (75-100) mg/dL Calcium 9.4 (8.4-10.2) mg/dL Adrenal panel 07/05/20 Range/Units 21:23 Sodium 132 L (137-145) mmol/L Potassium 4.2 (3.6-5.0) mmol/L Chloride 95.3 L (98-107) mmol/L Carbon Dioxide 23 (22-30) mmol/L BUN 38 H (9-20) mg/dL Creatinine 6.9 H (0.8-1.3) mg/dL Glucose 82 (75-100) mg/dL Calcium 9.4 (8.4-10.2) mg/dL Total Bilirubin 0.40 (0.1-1.2) mg/dL AST 25 (5-40) units/L ALT 14 (7-56) units/L Alkaline Phosphatase 97 (35-129) units/L Total Protein 8.1 (6.3-8.2) g/dL Albumin 4.1 (3.9-5) g/dL - Imaging CT scan - abdomen: report reviewed, image reviewed CT scan - pelvis: report reviewed, image reviewed Assessment and Plan 69 yo M with 1. incarcerated left inguinal hernia containing nonobstructed colon - chronic 2. incarcerated umbilical hernia containing fat - chronic 3. ESRD 4. CHF 5. On xarelto Plan: 1. Ok to start diet today 2. Echo pending 3. Cards consult pending - patient with 22beat run Vtac today. Will need preop risk stratification, cards w/u prior to hernia repair 4. Nephro consulted 5. bowel regimen 6. prn pain control 7. Hold xarelto - last dose yesterday 8. Pt will need hernia repair but this is not emergent as he is not obstructed. No evidence of bowel ischemia on CT scan and WBC in normal. I recommend optimizing patient medically as well as holding AC, and will schedule for hernia repair this admission if acceptable risk. I explained this to patient in detail. We discussed all risks, benefits, alternatives to surgery. Explained risks of anesthesia due to his comorbid conditions, along with high risk of hernia recurrence due to obesity. He understands. Consent obtained for robotic assisted left inguinal and umbilical hernia repair with mesh, possible open. Thank you, please call with questions. Evaluation and treatment of this patient was during the time of the national and state emergency arising from COVID19 coronavirus pandemic. Treatment and procedures performed meet the current and available best practice and guidelines for patient during the COVID pandemic.
[2020-07-06] MEDS ORDERED: FAMOTIDINE 20 MG/2 ML INJ IV SCH (10:00)
--- NOTE | 2020-07-06 11:32 | Progress Note ---
Assessment and Plan Assessment and plan: #Incarcerated inguinal hernia Surgery consulted Plan for hernia repair as per surgery Patient needs a preop cardiology evaluation as per surgery. Cardiology has been consulted #Nonsustained V. tach has a history of systolic heart failure and has an AICD Cardiology has been consulted #Hypertension Continue medications #Atrial fibrillation Xarelto on hold Not on rate control medications at home? #COPD Continue oxygen #Congestive heart failure Has AICD Has not seen a traffic recorder in many years Continue home medications Cardiology consulted. Will confirm home medications #ESRD HD as scheduled #Diabetes mellitus Insulin protocol #Acute cystitis Ceftriaxone #DVT prophylaxis Holding Xarelto for now History Interval history: 69-year-old male patient with history of end-stage renal disease on dialysis and umbilical hernia presents to the emergency department with complaints of nontraumatic left inguinal pain/swelling for the 4 days. He also endorses right testicular pain and painful urination. Denies fever, chills, nausea, vomiting, diarrhea, constipation, urinary retention, hematuria, penile discharge, testicular swelling. Denies other complaints at this time. In the emergency room CT scan of the abdomen shows medium sized left inguinal hernia containing a loop of distal colon without evidence of obstruction mild associated mesenteric fat necrosis is present. Cholelithiasis. Medium sized fat-containing periumbilical hernia with mild fat necrosis. Patient admitted for further evaluation and surgery was consulted. 07/06. No new complaints this AM. Had 22 beats of VT. He has AICD. Cardiology has been consulted for preop assessment prior to possible hernia repair. Continue to hold xarelto for now Hospitalist Physical - Physical exam Narrative exam: VITAL SIGNS: Reviewed. GENERAL: Awake HEAD: No signs of head trauma. EYES: Pupils are equal. Extraocular motions intact. MOUTH: Oropharynx is normal. NECK: No adenopathy, no JVD. CHEST: Chest with diminished breath sounds bilaterally. No wheezes, rales, or rhonchi. CARDIAC: normal S1 and S2, without murmurs, gallops, or rubs. ABDOMEN: Soft, non tender and non distended. No rebound or guarding, and no masses palpated. Bowel Sounds normal. MUSCULOSKELETAL: No edema : Left inguinal swelling NEUROLOGIC EXAM: Alert and oriented x3. No focal neurologic deficits SKIN: No obvious lesions - Constitutional Vitals: Temp Pulse Resp BP Pulse Ox 97.6 F 85 20 134/42 97 07/06/20 10:18 07/06/20 10:45 07/06/20 10:18 07/06/20 10:45 07/06/20 08:30 Results - Labs CBC & Chem 7: 07/05/20 20:43 07/05/20 21:23 Labs: Laboratory Last Values WBC 9.5 K/mm3 (4.5-11.0) 07/05/20 20:43 RBC 3.85 M/mm3 (3.65-5.03) 07/05/20 20:43 Hgb 11.9 gm/dl (11.8-15.2) 07/05/20 20:43 Hct 36.7 % (35.5-45.6) 07/05/20 20:43 MCV 95 fl (84-94) H 07/05/20 20:43 MCH 31 pg (28-32) 07/05/20 20:43 MCHC 33 % (32-34) 07/05/20 20:43 RDW 15.1 % (13.2-15.2) 07/05/20 20:43 Plt Count 284 K/mm3 (140-440) 07/05/20 20:43 Lymph % (Auto) 16.9 % (13.4-35.0) 07/05/20 20:43 [place] % (Auto) 11.1 % (0.0-7.3) H 07/05/20 20:43 Eos % (Auto) 2.4 % (0.0-4.3) 07/05/20 20:43 Baso % (Auto) 0.9 % (0.0-1.8) 07/05/20 20:43 Lymph # (Auto) 1.6 K/mm3 (1.2-5.4) 07/05/20 20:43 [place] # (Auto) 1.0 K/mm3 (0.0-0.8) H 07/05/20 20:43 Eos # (Auto) 0.2 K/mm3 (0.0-0.4) 07/05/20 20:43 Baso # (Auto) 0.1 K/mm3 (0.0-0.1) 07/05/20 20:43 Seg Neutrophils % 68.7 % (40.0-70.0) 07/05/20 20:43 Seg Neutrophils # 6.5 K/mm3 (1.8-7.7) 07/05/20 20:43 Sodium 132 mmol/L (137-145) L 07/05/20 21:23 Potassium 4.2 mmol/L (3.6-5.0) 07/05/20 21:23 Chloride 95.3 mmol/L (98-107) L 07/05/20 21:23 Carbon Dioxide 23 mmol/L (22-30) 07/05/20 21:23 Anion Gap 18 mmol/L 07/05/20 21:23 BUN 38 mg/dL (9-20) H 07/05/20 21:23 Creatinine 6.9 mg/dL (0.8-1.3) H 07/05/20 21: Estimated GFR 10 ml/min 07/05/20 21: BUN/Creatinine Ratio 6 % 07/05/20 21:23 Glucose 82 mg/dL (75-100) 07/05/20 21: POC Glucose 81 mg/dL (70-105) 07/06/20 07:50 Lactic Acid 1.80 mmol/L (0.7-2.0) 07/05/20 20:43 Calcium 9.4 mg/dL (8.4-10.2) 07/05/20 21: Magnesium 2.10 mg/dL (1.7-2.3) 07/05/20 21: Total Bilirubin 0.40 mg/dL (0.1-1.2) 07/05/20 21:23 AST 25 units/L (5-40) 07/05/20 21: ALT 14 units/L (7-56) 07/05/20 21:23 Alkaline Phosphatase 97 units/L (35-129) 07/05/20 21:23 Total Protein 8.1 g/dL (6.3-8.2) 07/05/20 21: Albumin 4.1 g/dL (3.9-5) 07/05/20 21: Albumin/Globulin Ratio 1.0 % 07/05/20 21:23 Urine Color Yellow (Yellow) 07/06/20 04:58 Urine Turbidity Cloudy (Clear) 07/06/20 04:58 Urine pH 5.0 (5.0-7.0) 07/06/20 04:58 Ur Specific [place] 1.009 (1.003-1.030) 07/06/20 04:58 Urine Protein 30 mg/dl mg/dL (Negative) 07/06/20 04:58 Urine Glucose (UA) Neg mg/dL (Negative) 07/06/20 04:58 Urine Ketones Neg mg/dL (Negative) 07/06/20 04:58 Urine Blood Sm (Negative) 07/06/20 04:58 Urine Nitrite Neg (Negative) 07/06/20 04:58 Urine Bilirubin Neg (Negative) 07/06/20 04:58 Urine Urobilinogen < 2.0 mg/dL (<2.0) 07/06/20 04:58 Ur Leukocyte Esterase Lg (Negative) 07/06/20 04:58 Urine WBC (Auto) > 182.0 /HPF (0.0-6.0) H 07/06/20 04:58 Urine RBC (Auto) 16.0 /HPF (0.0-6.0) 07/06/20 04:58 U Epithel Cells (Auto) 3.0 /HPF (0-13.0) 07/06/20 04:58 Urine Bacteria (Auto) 3+ /HPF (Negative) 07/06/20 04:58 Urine WBC Clumps 3+ /HPF 07/06/20 04:58 Urine Mucus Few /HPF 07/06/20 04:58 Urine Sperm 1+ /HPF (MEAT SUPER[employer]OR) 07/06/20 04:58 Goodman/IV: Voiding Method Urinal Active Medications - Current Medications Current Medications: Generic Name Dose Route Start Last Admin Trade Name Freq PRN Reason Stop Dose Admin Acetaminophen 650 mg 07/05/20 23:20 Acetaminophen 325 Mg Tab PO Q4H PRN Pain MILD(1-3)/Fever >100.5/CHANG Albuterol/Ipratropium 1 ampul 07/06/20 02:00 07/06/20 08:24 Ipratropium/Albuterol Sulfate 3 Ml Ampul.Neb IH 1 ampul Q6HRT ARSLAN Administration Dextrose 50 ml 07/05/20 23:23 07/06/20 06:28 Dextrose 50% In Water (25gm) 50 Ml Syringe IV 50 ml Q30MIN PRN Administration Hypoglycemia Protocol Docusate Sodium 100 mg 07/06/20 11:00 Docusate Sodium 100 Mg Cap PO BID ARSLAN Famotidine 20 mg 04/23/21 10:00 07/06/20 09:07 Famotidine 20 Mg/2 Ml Inj IV 20 mg DAILY ARSLAN Administration Sodium Chloride 1,000 mls @ 42 mls/hr 07/05/20 23:30 07/06/20 03:17 Nacl 0.9% 1000 Ml IV 42 mls/hr DIRECT ARSLAN Administration Levofloxacin/Dextrose 250 mg in 50 mls @ 50 mls/hr 07/06/20 11:00 Levaquin 250mg/50ml IV Q48H [facility] Insulin Human Lispro 0 unit 07/06/20 00:00 07/06/20 07:45 Insulin Lispro 100 Unit/Ml SUB-Q Not Given Q6HR [facility] Protocol Morphine Sulfate 2 mg 07/05/20 23:20 07/06/20 03:01 Morphine 2 Mg/1 Ml Inj IV 2 mg Q4H PRN Administration Pain, Moderate (4-6) Ondansetron HCl 4 mg 07/05/20 23:20 Ondansetron 4 Mg/2 Ml Inj IV Q8H PRN Nausea And Vomiting Polyethylene Glycol 17 gm 07/06/20 11:00 Polyethylene Glycol 3350 17 Gm Powder PO QDAY ARSLAN Sodium Chloride 10 ml 07/06/20 10:00 07/06/20 09:07 Sodium Chloride 0.9% 10 Ml Flush Syringe IV 10 ml BID ARSLAN Administration Sodium Chloride 10 ml 07/05/20 23:20 Sodium Chloride 0.9% 10 Ml Flush Syringe IV PRN PRN LINE FLUSH
[2020-07-06 11:34] LABS: Hepatitis B Surface Antigen Non-Reactive (Negative); Hepatitis C Virus Antibody Non-Reactive (NonReactive)
[2020-07-06] MEDS ORDERED: cefTRIAXone/NS 1 GM/50 ML 1 GM/50 ML BAG IV SCH (12:00)
[2020-07-06] MEDS: POLYETHYLENE GLYCOL 3350 17 GM POWDER PO SCH (14:26)
[2020-07-06] MEDS: DOCUSATE SODIUM 100 MG CAP PO SCH ×2 (14:26→22:50)
--- NOTE | 2020-07-06 15:59 | Consultation ---
History of Present Illness - Reason for Consult Consult date: 07/06/20 end stage renal disease - History of Present Illness Mr. Teran is a 69yo with ESRD on HD, atrial fibrillation, congestive heart failure and type II DM who presented to the ED with inguinal pain/swelling for the 4 days. He reported painful urination but denies fever, chills, nausea, vomiting, diarrhea. In the emergency room CT scan of the abdomen shows medium sized left inguinal hernia containing a loop of distal colon without evidence of obstruction mild associated mesenteric fat necrosis is present. He has been admitted for further management Past History Past Medical History: atrial fib, arthritis, CAD, COPD, diabetes, dialysis, ESRD, heart failure, hypertension, renal failure, other (Morbid obesity) Past Surgical History: Other (Achilles tendon repair x2, knee surgery, fistula) Social history: no significant social history Family history: no significant family history Medications and Allergies Allergies Allergy/AdvReac Type Severity Reaction Status Date / Time nifedipine [From Procardia] Allergy muscle Verified 07/05/20 15:30 spasms Home Medications Medication Instructions Recorded Confirmed Last Taken Type Furosemide [Lasix TAB] 80 mg PO DAILY 02/12/18 04/27/18 04/25/18 09:00 History Metformin HCl 500 mg PO DAILY 02/12/18 04/27/18 04/25/18 09:00 History Potassium Chloride [Klor-Con M20] 20 meq PO DAILY 02/12/18 04/27/18 04/25/18 09:00 History Rivaroxaban [Xarelto] 20 mg PO DAILY 02/12/18 04/27/18 04/25/18 09:00 History Sitagliptin Phosphate [Januvia] 100 mg PO DAILY 02/12/18 04/27/18 04/25/18 09:00 History allopurinoL [Allopurinol] 100 mg PO DAILY 02/12/18 04/27/18 04/25/18 09:00 History lisinopriL [Zestril TAB] 10 mg PO DAILY 02/12/18 04/27/18 04/25/18 09:00 History metOLazone [Metolazone] 5 mg PO DAILY 02/12/18 04/27/18 04/25/18 09:00 History HYDROcodone/APAP 5-325 [[place] 1 each PO Q6HR PRN #30 tablet 02/16/18 04/27/18 04/25/18 09:00 Rx 5/325] HYDROcodone/APAP 7.5-325 [[place] 1 each PO Q6HR PRN #30 tablet 04/27/18 Unknown Rx 7.5/325] Active Meds: Active Medications Acetaminophen (Acetaminophen 325 Mg Tab) 650 mg PO Q4H PRN PRN Reason: Pain MILD(1-3)/Fever >100.5/CHANG Albuterol/Ipratropium (Ipratropium/Albuterol Sulfate 3 Ml Ampul.Neb) 1 ampul IH Q6HRT [facility] Last Admin: 07/06/20 08:24 Dose: 1 ampul Documented by: Dextrose (Dextrose 50% In Water (25gm) 50 Ml Syringe) 50 ml IV Q30MIN PRN; Protocol PRN Reason: Hypoglycemia Last Admin: 07/06/20 06:28 Dose: 50 ml Documented by: Docusate Sodium (Docusate Sodium 100 Mg Cap) 100 mg PO BID [facility] Last Admin: 07/06/20 14:26 Dose: 100 mg Documented by: Famotidine (Famotidine 20 Mg/2 Ml Inj) 20 mg IV DAILY [facility] Last Admin: 07/06/20 09:07 Dose: 20 mg Documented by: Sodium Chloride (Nacl 0.9% 1000 Ml) 1,000 mls @ 42 mls/hr IV DIRECT [facility] Last Admin: 07/06/20 03:17 Dose: 42 mls/hr Documented by: Levofloxacin/Dextrose (Levaquin 250mg/50ml) 250 mg in 50 mls @ 50 mls/hr IV Q48H [facility] Last Admin: 07/06/20 14:22 Dose: 50 mls/hr Documented by: Insulin Human Lispro (Insulin Lispro 100 Unit/Ml) 0 unit SUB-Q Q6HR [facility]; Protocol Last Admin: 07/06/20 13:52 Dose: Not Given Documented by: Morphine Sulfate (Morphine 2 Mg/1 Ml Inj) 2 mg IV Q4H PRN PRN Reason: Pain, Moderate (4-6) Last Admin: 07/06/20 03:01 Dose: 2 mg Documented by: Ondansetron HCl (Ondansetron 4 Mg/2 Ml Inj) 4 mg IV Q8H PRN PRN Reason: Nausea And Vomiting Polyethylene Glycol (Polyethylene Glycol 3350 17 Gm Powder) 17 gm PO QDAY [facility] Last Admin: 07/06/20 14:26 Dose: 17 gm Documented by: Sodium Chloride (Sodium Chloride 0.9% 10 Ml Flush Syringe) 10 ml IV BID [facility] Last Admin: 07/06/20 09:07 Dose: 10 ml Documented by: Sodium Chloride (Sodium Chloride 0.9% 10 Ml Flush Syringe) 10 ml IV PRN PRN PRN Reason: LINE FLUSH Exam - Vital Signs Vital signs: Vital Signs Temp Pulse Resp BP Pulse Ox 97.9 F 101 H 24 135/66 75 L 07/05/20 15:28 07/05/20 15:28 07/05/20 15:28 07/05/20 15:28 07/05/20 15:28 Results - Lab Results 07/05/20 20:43 07/05/20 21:23 Most recent lab results Calcium 9.4 mg/dL (8.4-10.2) 07/05/20 21:23 Magnesium 2.10 mg/dL (1.7-2.3) 07/05/20 21:23 Assessment and Plan Impression: * End stage renal disease * Incarerated inguinal hernia * Urinary tract infection * Atrial fibrillation on chronic anticoagulation * Anemia secondary to ESRD * Secondary hyperparathyroidism Plan: * Hemodialysis today * Continue MWF schedule * UF as tolerated * Surgery recommendations for surgical repair noted * Abx per primary team * Cardiology following * Will d/c IVF * Diet per surgery * Epogen TIW prn
--- NOTE | 2020-07-06 17:27 | Consultation ---
History of Present Illness Consult date: 07/06/20 Requesting physician: MONIK GUZMAN Consult reason: arrhythmia History of present illness: This p is a 69 year old male with a significant hx of ESRD on HD, CMP, PPM, Nontraumatic Inguinal hernia. His is previously unknown to our practice He is followed by Dr Brian Almodovar, PCP. Pt reports known inguinal hernia that has become acutely more painful x 4 days, also endorsing painful urination. Denies fever, chills, nausea, vomiting, diarrhea, constipation, urinary retention, hematuria, penile discharge, testicular swelling. Denies other complaints at this time. CT ABD shows medium sized left inguinal hernia containing loop of colon without evidence of obstruction. Echo reviewed (2013): EF 60-65%. Moderate LVH. PPM was interrogated in 08/2019. Rattle showing 2 years est battery life. Past History Past Medical History: atrial fib, arthritis, CAD, COPD, diabetes, dialysis, ESRD, heart failure, hypertension, renal failure, other (Morbid obesity) Past Surgical History: Other (Achilles tendon repair x2, knee surgery, fistula) Social history: no significant social history Family history: no significant family history Medications and Allergies Allergies Allergy/AdvReac Type Severity Reaction Status Date / Time nifedipine [From Procardia] Allergy muscle Verified 07/05/20 15:30 spasms Home Medications Medication Instructions Recorded Confirmed Last Taken Type Furosemide [Lasix TAB] 80 mg PO DAILY 02/12/18 04/27/18 04/25/18 09:00 History Metformin HCl 500 mg PO DAILY 02/12/18 04/27/18 04/25/18 09:00 History Potassium Chloride [Klor-Con M20] 20 meq PO DAILY 02/12/18 04/27/18 04/25/18 09:00 History Rivaroxaban [Xarelto] 20 mg PO DAILY 02/12/18 04/27/18 04/25/18 09:00 History Sitagliptin Phosphate [Januvia] 100 mg PO DAILY 02/12/18 04/27/18 04/25/18 09:00 History allopurinoL [Allopurinol] 100 mg PO DAILY 02/12/18 04/27/18 04/25/18 09:00 History lisinopriL [Zestril TAB] 10 mg PO DAILY 02/12/18 04/27/18 04/25/18 09:00 History metOLazone [Metolazone] 5 mg PO DAILY 02/12/18 04/27/18 04/25/18 09:00 History HYDROcodone/APAP 5-325 [[place] 1 each PO Q6HR PRN #30 tablet 02/16/18 04/27/18 04/25/18 09:00 Rx 5/325] HYDROcodone/APAP 7.5-325 [[place] 1 each PO Q6HR PRN #30 tablet 04/27/18 Unknown Rx 7.5/325] Active Meds: Active Medications Acetaminophen (Acetaminophen 325 Mg Tab) 650 mg PO Q4H PRN PRN Reason: Pain MILD(1-3)/Fever >100.5/CHANG Albuterol/Ipratropium (Ipratropium/Albuterol Sulfate 3 Ml Ampul.Neb) 1 ampul IH Q6HRT [facility] Last Admin: 07/06/20 17:14 Dose: Not Given Documented by: Dextrose (Dextrose 50% In Water (25gm) 50 Ml Syringe) 50 ml IV Q30MIN PRN; Protocol PRN Reason: Hypoglycemia Last Admin: 07/06/20 06:28 Dose: 50 ml Documented by: Docusate Sodium (Docusate Sodium 100 Mg Cap) 100 mg PO BID [facility] Last Admin: 07/06/20 14:26 Dose: 100 mg Documented by: Famotidine (Famotidine 20 Mg/2 Ml Inj) 20 mg IV DAILY [facility] Last Admin: 07/06/20 09:07 Dose: 20 mg Documented by: Sodium Chloride (Nacl 0.9% 1000 Ml) 1,000 mls @ 42 mls/hr IV DIRECT [facility] Last Admin: 07/06/20 03:17 Dose: 42 mls/hr Documented by: Levofloxacin/Dextrose (Levaquin 250mg/50ml) 250 mg in 50 mls @ 50 mls/hr IV Q48H [facility] Last Admin: 07/06/20 14:22 Dose: 50 mls/hr Documented by: Insulin Human Lispro (Insulin Lispro 100 Unit/Ml) 0 unit SUB-Q Q6HR [facility]; Protocol Last Admin: 07/06/20 13:52 Dose: Not Given Documented by: Morphine Sulfate (Morphine 2 Mg/1 Ml Inj) 2 mg IV Q4H PRN PRN Reason: Pain, Moderate (4-6) Last Admin: 07/06/20 03:01 Dose: 2 mg Documented by: Ondansetron HCl (Ondansetron 4 Mg/2 Ml Inj) 4 mg IV Q8H PRN PRN Reason: Nausea And Vomiting Polyethylene Glycol (Polyethylene Glycol 3350 17 Gm Powder) 17 gm PO QDAY [facility] Last Admin: 07/06/20 14:26 Dose: 17 gm Documented by: Sodium Chloride (Sodium Chloride 0.9% 10 Ml Flush Syringe) 10 ml IV BID [facility] Last Admin: 07/06/20 09:07 Dose: 10 ml Documented by: Sodium Chloride (Sodium Chloride 0.9% 10 Ml Flush Syringe) 10 ml IV PRN PRN PRN Reason: LINE FLUSH Review of Systems Constitutional: no weight loss, no weight gain, no fever, no chills, no sweats Ears, nose, mouth and throat: no ear pain, no ear discharge, no nose pain, no nasal congestion, no nasal discharge Cardiovascular: no chest pain, no orthopnea, no palpitations, no rapid/irregular heart beat, no edema, no syncope, no lightheadedness, no shortness of breath Respiratory: no cough, no hemoptysis, no shortness of breath Gastrointestinal: no abdominal pain, no nausea, no vomiting, no diarrhea, no constipation, no change in bowel habits, no hematemesis Genitourinary Male: testicular pain, other (Per HPI), no flank pain Musculoskeletal: no neck stiffness, no neck pain, no shooting arm pain, no arm numbness/tingling, no low back pain, no shooting leg pain, no leg numbness /tingling Integumentary: no rash, no pruritis, no redness, no sores, no wounds, no jaundice Neurological: no head injury, no paralysis, no weakness, no numbness, no tingling, no seizures, no syncope Psychiatric: no anxiety Endocrine: no cold intolerance, no heat intolerance Hematologic/Lymphatic: no easy bruising, no easy bleeding Allergic/Immunologic: no urticaria Physical Examination Last Vital Signs Temp 98.2 F 07/06/20 14:40 Pulse 86 07/06/20 14:40 Resp 18 07/06/20 16:00 BP 100/56 07/06/20 14:40 Pulse Ox 98 07/06/20 16:00 General appearance: no acute distress HEENT: Positive: PERRL, Normocephaly, Mucus Membranes Moist Neck: Positive: neck supple, trachea midline Cardiac: Positive: Reg Rate and Rhythm, S1/S2 Lungs: Positive: clear to auscultation, Normal Breath Sounds Neuro: Positive: Grossly Intact Abdomen: Positive: Other (Umbilical hernia, Inguinal hernia) Skin: Negative: Rash, Wound Musculoskeletal: No Pain Extremities: Present: upper extr. pulses, lower extr. pulses. Absent: edema Results 07/05/20 20:43 07/05/20 21:23 Cardiac Enzymes 07/05/20 Range/Units 21:23 AST 25 (5-40) units/L CBC 07/05/20 Range/Units 20:43 WBC 9.5 (4.5-11.0) K/mm3 RBC 3.85 (3.65-5.03) M/mm3 Hgb 11.9 (11.8-15.2) gm/dl Hct 36.7 (35.5-45.6) % Plt Count 284 (140-440) K/mm3 Lymph # (Auto) 1.6 (1.2-5.4) K/mm3 [place] # (Auto) 1.0 H (0.0-0.8) K/mm3 Eos # (Auto) 0.2 (0.0-0.4) K/mm3 Baso # (Auto) 0.1 (0.0-0.1) K/mm3 Comprehensive Metabolic Panel 07/05/20 Range/Units 21:23 Sodium 132 L (137-145) mmol/L Potassium 4.2 (3.6-5.0) mmol/L Chloride 95.3 L (98-107) mmol/L Carbon Dioxide 23 (22-30) mmol/L BUN 38 H (9-20) mg/dL Creatinine 6.9 H (0.8-1.3) mg/dL Glucose 82 (75-100) mg/dL Calcium 9.4 (8.4-10.2) mg/dL AST 25 (5-40) units/L ALT 14 (7-56) units/L Alkaline Phosphatase 97 (35-129) units/L Total Protein 8.1 (6.3-8.2) g/dL Albumin 4.1 (3.9-5) g/dL - Imaging and Cardiology Echo: report reviewed (Echo reviewed (07/06/20): EF 60-65%. Mild LVH. ) EKG: report reviewed, image reviewed EKG interpretations - Telemetry EKG Rhythm: Sinus Rhythm Assessment and Plan Cardiology is consulted for Ventricular antiarrhythmia. Pt had 22 beat run of VT. Tele reviewed: Afib 80s. Demand Paced rhythm. 22 beat run of VT episode. Ventricular Arrhythmia Continue to monitor on telemetry Consider BB if/when blood pressures allow. Hx of Atrial Fibrillation Anticoagulated on Xarelto PPM in situ PPM was interrogated on 08/2019. [employer] AV Demand PPM functioning normally. Est 2 years 2 months battery life at that time. PPM Interrogation pending Cardiomyopathy Pt reports having cardiomyopathy, but does not currently follow with cardiology. Poor historian. Echo reviewed (07/06/20): EF 60-65%. Mild LVH. ESRD on HD Nephrology is following. Pt for hD today. Optimize electolytes. Incarcerated Hernia General Sx is consulted HTN Volume optimization per nephrology DVT Prophylaxis AC on Xarelto Will follow This pt was seen in conjunction with Dr Brooklynn Myers who agrees with this assessment and plan of care. - Patient Problems (1) Incarcerated inguinal hernia Current Visit: Yes Status: Acute (2) Ventricular arrhythmia Current Visit: Yes Status: Acute (3) Abdominal pain Current Visit: Yes Status: Acute Qualifiers: Abdominal location: lower abdomen, unspecified Qualified Code(s): R10.30 - Lower abdominal pain, unspecified (4) Cardiac pacemaker in situ Current Visit: Yes Status: Chronic (5) Diabetes Current Visit: Yes Status: Chronic (6) ESRD (end stage renal disease) Current Visit: Yes Status: Chronic (7) Hypertension Current Visit: Yes Status: Chronic (8) History of atrial fibrillation Current Visit: Yes Status: Chronic (9) DVT prophylaxis Current Visit: Yes Status: Acute
[2020-07-06 19:54] LABS: Basophils # (Auto) 0.2 K/mm3 (0.0-0.1); Eosinophils # (Auto) 0.3 K/mm3 (0.0-0.4); Eosinophils % (Auto) 3.3 % (0.0-4.3); Hematocrit 35.2 % (35.5-45.6); Hemoglobin 11.9 gm/dl (11.8-15.2); Lymphocytes # (Auto) 0.9 K/mm3 (1.2-5.4); Lymphocytes % (Auto) 10.7 % (13.4-35.0); Mean Corpuscular HGB Conc 34 % (32-34); Mean Corpuscular Volume 93 fl (84-94); Monocytes # (Auto) 0.9 K/mm3 (0.0-0.8); Monocytes % (Auto) 9.9 % (0.0-7.3); Platelet Count 226 K/mm3 (140-440); Red Cell Distribution Width 14.1 % (13.2-15.2)
[2020-07-07] MEDS: INSULIN LISPRO 100 UNIT/ML SUB-Q SCH ×4 (00:01→17:31)
[2020-07-07] MEDS ORDERED: ALBUTEROL 2.5 MG/3 ML NEBU IH PRN (02:02)
[2020-07-07 06:23] LABS: Calcium 8.8 mg/dL (8.4-10.2)
[2020-07-07] MEDS: MORPHINE 2 MG/1 ML INJ IV PRN ×3 (07:20→22:28)
[2020-07-07] MEDS: IPRATROPIUM/ALBUTEROL SULFATE 3 ML AMPUL.NEB IH SCH ×3 (09:02→19:47)
[2020-07-07] MEDS: POLYETHYLENE GLYCOL 3350 17 GM POWDER PO SCH (09:56)
[2020-07-07] MEDS: DOCUSATE SODIUM 100 MG CAP PO SCH ×2 (09:56→22:28)
[2020-07-07] MEDS: carvediloL 3.125 MG TAB PO SCH ×2 (09:56→22:00)
[2020-07-07] MEDS: FAMOTIDINE 20 MG/2 ML INJ IV SCH (09:57)
--- NOTE | 2020-07-07 12:01 | Progress Note ---
Assessment and Plan Assessment and plan: #Incarcerated inguinal hernia Surgery consulted Plan for hernia repair as per surgery Patient needs a preop cardiology evaluation as per surgery. Cardiology has been consulted #Nonsustained V. tach has a history of systolic heart failure and has an AICD Cardiology evaluation appreciated. Started on coreg #Hypertension Continue medications #Atrial fibrillation Xarelto on hold Not on rate control medications at home? #COPD Continue oxygen #Congestive heart failure Has AICD Has not seen a gum mixer in many years Continue home medications Cardiology on board Will confirm home medications #ESRD HD as scheduled #Diabetes mellitus Insulin protocol #Acute cystitis Ceftriaxone #DVT prophylaxis Holding Xarelto for now History Interval history: 69-year-old male patient with history of end-stage renal disease on dialysis and umbilical hernia presents to the emergency department with complaints of nontraumatic left inguinal pain/swelling for the 4 days. He also endorses right testicular pain and painful urination. Denies fever, chills, nausea, vomiting, diarrhea, constipation, urinary retention, hematuria, penile discharge, testicular swelling. Denies other complaints at this time. In the emergency room CT scan of the abdomen shows medium sized left inguinal hernia containing a loop of distal colon without evidence of obstruction mild associated mesenteric fat necrosis is present. Cholelithiasis. Medium sized fat-containing periumbilical hernia with mild fat necrosis. Patient admitted for further evaluation and surgery was consulted. 07/06. No new complaints this AM. Had 22 beats of VT. He has AICD. Cardiology has been consulted for preop assessment prior to possible hernia repair. Continue to hold xarelto for now. 07/07. States his groin pain is bearable this AM. He wants to have procedure during this admission. Started him on low dose coreg. Hospitalist Physical - Physical exam Narrative exam: VITAL SIGNS: Reviewed. GENERAL: Awake HEAD: No signs of head trauma. EYES: Pupils are equal. Extraocular motions intact. MOUTH: Oropharynx is normal. NECK: No adenopathy, no JVD. CHEST: Chest with diminished breath sounds bilaterally. No wheezes, rales, or rhonchi. CARDIAC: normal S1 and S2, without murmurs, gallops, or rubs. ABDOMEN: Soft, non tender and non distended. No rebound or guarding, and no masses palpated. Bowel Sounds normal. MUSCULOSKELETAL: No edema : Left inguinal swelling NEUROLOGIC EXAM: Alert and oriented x3. No focal neurologic deficits SKIN: No obvious lesions - Constitutional Vitals: Temp Pulse Resp BP Pulse Ox 98.2 F 83 18 111/65 97 07/07/20 08:32 07/07/20 09:56 07/07/20 08:58 07/07/20 09:56 07/07/20 08:32 Results - Labs CBC & Chem 7: 07/06/20 19:14 07/07/20 05:01 Labs: Laboratory Last Values WBC 8.7 K/mm3 (4.5-11.0) 07/06/20 19:14 RBC 3.80 M/mm3 (3.65-5.03) 07/06/20 19:14 Hgb 11.9 gm/dl (11.8-15.2) 07/06/20 19:14 Hct 35.2 % (35.5-45.6) L 07/06/20 19:14 MCV 93 fl (84-94) 07/06/20 19:14 MCH 31 pg (28-32) 07/06/20 19:14 MCHC 34 % (32-34) 07/06/20 19:14 RDW 14.1 % (13.2-15.2) 07/06/20 19:14 Plt Count 226 K/mm3 (140-440) 07/06/20 19:14 Lymph % (Auto) 10.7 % (13.4-35.0) L 07/06/20 19:14 [place] % (Auto) 9.9 % (0.0-7.3) H 07/06/20 19:14 Eos % (Auto) 3.3 % (0.0-4.3) 07/06/20 19:14 Baso % (Auto) 2.0 % (0.0-1.8) H 07/06/20 19:14 Lymph # (Auto) 0.9 K/mm3 (1.2-5.4) L 07/06/20 19:14 [place] # (Auto) 0.9 K/mm3 (0.0-0.8) H 07/06/20 19:14 Eos # (Auto) 0.3 K/mm3 (0.0-0.4) 07/06/20 19:14 Baso # (Auto) 0.2 K/mm3 (0.0-0.1) H 07/06/20 19:14 Seg Neutrophils % 74.1 % (40.0-70.0) H 07/06/20 19:14 Seg Neutrophils # 6.5 K/mm3 (1.8-7.7) 07/06/20 19:14 Sodium 134 mmol/L (137-145) L 07/07/20 05:01 Potassium 4.1 mmol/L (3.6-5.0) 07/07/20 05:01 Chloride 95.3 mmol/L (98-107) L 07/07/20 05:01 Carbon Dioxide 27 mmol/L (22-30) 07/07/20 05:01 Anion Gap 16 mmol/L 07/07/20 05:01 BUN 34 mg/dL (9-20) H 07/07/20 05:01 Creatinine 6.4 mg/dL (0.8-1.3) H 07/07/20 05:01 Estimated GFR 11 ml/min 07/07/20 05:01 BUN/Creatinine Ratio 5 % 07/07/20 05:01 Glucose 108 mg/dL (75-100) H 07/07/20 05:01 POC Glucose 97 mg/dL (70-105) 07/07/20 07:31 Lactic Acid 1.80 mmol/L (0.7-2.0) 07/05/20 20:43 Calcium 8.8 mg/dL (8.4-10.2) 07/07/20 05:01 Magnesium 2.00 mg/dL (1.7-2.3) 07/07/20 05:01 Total Bilirubin 0.40 mg/dL (0.1-1.2) 07/05/20 21:23 AST 25 units/L (5-40) 07/05/20 21:23 ALT 14 units/L (7-56) 07/05/20 21:23 Alkaline Phosphatase 97 units/L (35-129) 07/05/20 21:23 Total Protein 8.1 g/dL (6.3-8.2) 07/05/20 21:23 Albumin 4.1 g/dL (3.9-5) 07/05/20 21:23 Albumin/Globulin Ratio 1.0 % 07/05/20 21:23 Urine Color Yellow (Yellow) 07/06/20 04:58 Urine Turbidity Cloudy (Clear) 07/06/20 04:58 Urine pH 5.0 (5.0-7.0) 07/06/20 04:58 Ur Specific [place] 1.009 (1.003-1.030) 07/06/20 04:58 Urine Protein 30 mg/dl mg/dL (Negative) 07/06/20 04:58 Urine Glucose (UA) Neg mg/dL (Negative) 07/06/20 04:58 Urine Ketones Neg mg/dL (Negative) 07/06/20 04:58 Urine Blood Sm (Negative) 07/06/20 04:58 Urine Nitrite Neg (Negative) 07/06/20 04:58 Urine Bilirubin Neg (Negative) 07/06/20 04:58 Urine Urobilinogen < 2.0 mg/dL (<2.0) 07/06/20 04:58 Ur Leukocyte Esterase Lg (Negative) 07/06/20 04:58 Urine WBC (Auto) > 182.0 /HPF (0.0-6.0) H 07/06/20 04:58 Urine RBC (Auto) 16.0 /HPF (0.0-6.0) 07/06/20 04:58 U Epithel Cells (Auto) 3.0 /HPF (0-13.0) 07/06/20 04:58 Urine Bacteria (Auto) 3+ /HPF (Negative) 07/06/20 04:58 Urine WBC Clumps 3+ /HPF 07/06/20 04:58 Urine Mucus Few /HPF 07/06/20 04:58 Urine Sperm 1+ /HPF (WALLP[employer]ER INST[employer]ER) 07/06/20 04:58 Hepatitis A IgM Ab Non-reactive (NonReactive) 07/06/20 10:40 Hep Bs Antigen Non-reactive (Negative) 07/06/20 10:40 Hep B Core IgM Ab Non-reactive (NonReactive) 07/06/20 10:40 Hepatitis C Antibody Non-reactive (NonReactive) 07/06/20 10:40 [place]/IV: Voiding Method Urinal Active Medications - Current Medications Current Medications: Generic Name Dose Route Start Last Admin Trade Name Freq PRN Reason Stop Dose Admin Acetaminophen 650 mg 07/05/20 23:20 Acetaminophen 325 Mg Tab PO Q4H PRN Pain MILD(1-3)/Fever >100.5/CHANG Albuterol 2.5 mg 04/24/21 02:02 Albuterol 2.5 Mg/3 Ml Nebu IH Q4HRT PRN Shortness Of Breath Albuterol/Ipratropium 1 ampul 07/07/20 08:00 07/07/20 09:02 Ipratropium/Albuterol Sulfate 3 Ml Ampul.Neb IH 1 ampul TIDRT [facility] Administration Carvedilol 3.125 mg 07/07/20 10:00 07/07/20 09:56 Carvedilol 3.125 Mg Tab PO 3.125 mg BID [facility] Administration Dextrose 50 ml 07/05/20 23:23 07/06/20 06:28 Dextrose 50% In Water (25gm) 50 Ml Syringe IV 50 ml Q30MIN PRN Administration Hypoglycemia Protocol Docusate Sodium 100 mg 07/06/20 11:00 07/07/20 09:56 Docusate Sodium 100 Mg Cap PO 100 mg BID [facility] Administration Famotidine 20 mg 07/06/20 10:00 07/07/20 09:57 Famotidine 20 Mg/2 Ml Inj IV 20 mg DAILY [facility] Administration Levofloxacin/Dextrose 250 mg in 50 mls @ 50 mls/hr 07/06/20 11:00 07/06/20 14:22 Levaquin 250mg/50ml IV 50 mls/hr Q48H [facility] Administration Insulin Human Lispro 0 unit 07/06/20 00:00 07/07/20 11:52 Insulin Lispro 100 Unit/Ml SUB-Q Not Given Q6HR [facility] Protocol Morphine Sulfate 2 mg 07/05/20 23:20 07/07/20 07:20 Morphine 2 Mg/1 Ml Inj IV 2 mg Q4H PRN Administration Pain, Moderate (4-6) Ondansetron HCl 4 mg 07/05/20 23:20 Ondansetron 4 Mg/2 Ml Inj IV Q8H PRN Nausea And Vomiting Polyethylene Glycol 17 gm 07/06/20 11:00 07/07/20 09:56 Polyethylene Glycol 3350 17 Gm Powder PO 17 gm QDAY [facility] Administration Sodium Chloride 10 ml 07/06/20 10:00 07/07/20 09:57 Sodium Chloride 0.9% 10 Ml Flush Syringe IV 10 ml BID [facility] Administration Sodium Chloride 10 ml 07/05/20 23:20 Sodium Chloride 0.9% 10 Ml Flush Syringe IV PRN PRN LINE FLUSH Nutrition/Malnutrition Assess - Dietary Evaluation Nutrition/Malnutrition Findings: Nutrition Notes Start: 07/06/20 11:44 Freq: Status: Active Protocol: Document 07/06/20 11:44 (Rec: 07/06/20 11:46 MK [id number]) Nutrition Notes Need for Assessment generated from: MD Order,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 RN screen for new on set DM. Per chart, pt with DM in 2018. Pt not in room at time of visit. Nutrition Intervention Follow-Up By: 07/09/20 Additional Comments FU for diet education
--- NOTE | 2020-07-07 13:18 | Event Note ---
Date: 07/07/20 Clinical condition of patient unchanged. Appreciate cardiology preliminary evaluation. Would like official risk assessment & and any william-operative recommendations of patient for surgery to facilitate scheduling of hernia repair under general anesthesia. Trying to take to surgery on Thursday if cleared. Paged cardiology earlier today, waiting for call back.
--- NOTE | 2020-07-07 18:02 | Progress Note ---
Assessment and Plan Impression: * End stage renal disease * Incarcerated inguinal hernia * Urinary tract infection * Atrial fibrillation on chronic anticoagulation * Anemia secondary to ESRD * Secondary hyperparathyroidism Plan: * No acute need for HD today. Patient is s/p HD on Thursday * Continue MWF schedule * UF as tolerated * Surgery recommendations for surgical repair noted * Cardiology following * Abx per primary team * Diet per surgery * Epogen TIW prn Subjective Date of service: 07/07/20 Interval history: Patient has no complaints. Objective - Vital Signs Vital signs: Vital Signs - 12hr 07/07/20 07/07/20 07/07/20 08:32 08:58 09:56 Temperature 98.2 F Pulse Rate 83 83 Pulse Rate [ 84 Anterior Bilateral Throughout] Respiratory 18 Rate Respiratory 18 Rate [Anterior Bilateral Throughout] Blood Pressure 111/65 Blood Pressure 111/65 [Left] O2 Sat by Pulse 97 Oximetry 07/07/20 07/07/20 07/07/20 12:36 14:33 16:08 Temperature Pulse Rate 84 100 H Pulse Rate [ 76 Anterior Bilateral Throughout] Respiratory Rate Respiratory 18 Rate [Anterior Bilateral Throughout] Blood Pressure Blood Pressure 117/64 [Left] O2 Sat by Pulse 96 Oximetry 07/07/20 07/07/20 07/07/20 16:10 17:00 17:10 Temperature Pulse Rate 70 Pulse Rate [ Anterior Bilateral Throughout] Respiratory Rate Respiratory Rate [Anterior Bilateral Throughout] Blood Pressure Blood Pressure 128/58 [Left] O2 Sat by Pulse 100 90 100 Oximetry - General Appearance General appearance: well-developed, well-nourished EENT: ATNC Respiratory: Present: Clear to Ascultation Cardiology: regular, S1S2 Gastrointestinal: normal, no tenderness, no distended Integumentary: no rash, warm and dry Psychiatric: cooperative - Lab 07/08/20 14:09 07/07/20 05:01 Most recent lab results Calcium 8.8 mg/dL (8.4-10.2) 07/07/20 05:01 Magnesium 2.00 mg/dL (1.7-2.3) 07/07/20 05:01 Medications & Allergies - Medications Allergies/Adverse Reactions: Allergies nifedipine [From Procardia] Allergy (Verified 07/05/20 15:30) muscle spasms Home Medications: Home Medications Medication Instructions Recorded Confirmed Last Taken Type Furosemide [Lasix TAB] 80 mg PO DAILY 02/12/18 04/27/18 04/25/18 09:00 History Metformin HCl 500 mg PO DAILY 02/12/18 04/27/18 04/25/18 09:00 History Potassium Chloride [Klor-Con M20] 20 meq PO DAILY 02/12/18 04/27/18 04/25/18 09:00 History Rivaroxaban [Xarelto] 20 mg PO DAILY 02/12/18 04/27/18 04/25/18 09:00 History Sitagliptin Phosphate [Januvia] 100 mg PO DAILY 02/12/18 04/27/18 04/25/18 09:00 History allopurinoL [Allopurinol] 100 mg PO DAILY 02/12/18 04/27/18 04/25/18 09:00 History lisinopriL [Zestril TAB] 10 mg PO DAILY 02/12/18 04/27/18 04/25/18 09:00 History metOLazone [Metolazone] 5 mg PO DAILY 02/12/18 04/27/18 04/25/18 09:00 History HYDROcodone/APAP 5-325 [[place] 1 each PO Q6HR PRN #30 tablet 02/16/18 04/27/18 04/25/18 09:00 Rx 5/325] HYDROcodone/APAP 7.5-325 [[place] 1 each PO Q6HR PRN #30 tablet 04/27/18 Unknown Rx 7.5/325] Active Medications: Generic Name Dose Route Start Last Admin Trade Name Freq PRN Reason Stop Dose Admin Acetaminophen 650 mg 07/05/20 23:20 Acetaminophen 325 Mg Tab PO Q4H PRN Pain MILD(1-3)/Fever >100.5/CHANG Albuterol 2.5 mg 07/07/20 02:02 Albuterol 2.5 Mg/3 Ml Nebu IH Q4HRT PRN Shortness Of Breath Albuterol/Ipratropium 1 ampul 07/07/20 08:00 07/07/20 16:09 Ipratropium/Albuterol Sulfate 3 Ml Ampul.Neb IH 1 ampul TIDRT ARSLAN Administration Carvedilol 3.125 mg 07/07/20 10:00 07/07/20 09:56 Carvedilol 3.125 Mg Tab PO 3.125 mg BID ARSLAN Administration Dextrose 50 ml 07/05/20 23:23 07/06/20 06:28 Dextrose 50% In Water (25gm) 50 Ml Syringe IV 50 ml Q30MIN PRN Administration Hypoglycemia Protocol Docusate Sodium 100 mg 07/06/20 11:00 07/07/20 09:56 Docusate Sodium 100 Mg Cap PO 100 mg BID ARSLAN Administration Famotidine 20 mg 07/06/20 10:00 07/07/20 09:57 Famotidine 20 Mg/2 Ml Inj IV 20 mg DAILY ARSLAN Administration Levofloxacin/Dextrose 250 mg in 50 mls @ 50 mls/hr 07/06/20 11:00 07/06/20 14:22 Levaquin 250mg/50ml IV 50 mls/hr Q48H ARSLAN Administration Insulin Human Lispro 0 unit 07/06/20 00:00 07/07/20 17:31 Insulin Lispro 100 Unit/Ml SUB-Q Not Given Q6HR ARSLAN Protocol Morphine Sulfate 2 mg 07/05/20 23:20 07/07/20 17:42 Morphine 2 Mg/1 Ml Inj IV 2 mg Q4H PRN Administration Pain, Moderate (4-6) Ondansetron HCl 4 mg 07/05/20 23:20 Ondansetron 4 Mg/2 Ml Inj IV Q8H PRN Nausea And Vomiting Polyethylene Glycol 17 gm 07/06/20 11:00 07/07/20 09:56 Polyethylene Glycol 3350 17 Gm Powder PO 17 gm QDAY ARSLAN Administration Sodium Chloride 10 ml 07/06/20 10:00 07/07/20 09:57 Sodium Chloride 0.9% 10 Ml Flush Syringe IV 10 ml BID ARSLAN Administration Sodium Chloride 10 ml 07/05/20 23:20 Sodium Chloride 0.9% 10 Ml Flush Syringe IV PRN PRN LINE FLUSH
--- NOTE | 2020-07-07 19:25 | Progress Note ---
Assessment and Plan Due to nonsustained VT runs, will schedule Lexiscan stress MPI on Thursday a.m. in anticipation of surgery. - Patient Problems (1) Incarcerated inguinal hernia Current Visit: Yes Status: Acute (2) NSVT (nonsustained ventricular tachycardia) Current Visit: Yes Status: Acute (3) Cardiac pacemaker in situ Current Visit: Yes Status: Chronic (4) Permanent atrial fibrillation Current Visit: Yes Status: Chronic (5) ESRD (end stage renal disease) Current Visit: Yes Status: Chronic (6) Hypertension Current Visit: Yes Status: Chronic Qualifiers: Hypertension type: essential hypertension Qualified Code(s): I10 - Essential (primary) hypertension (7) Diabetes mellitus Current Visit: Yes Status: Chronic Qualifiers: Diabetes mellitus type: type 2 Subjective Date of service: 07/07/20 Principal diagnosis: Incarcerated inguinal hernia, Perm AF, ESRD, s/p PPM, ESRD, NSVT Interval history: He still has some left lower quadrant pain. Objective Vital Signs Last Vital Signs Temp 98.2 F 07/07/20 08:32 Pulse 91 H 07/07/20 18:51 Resp 18 07/07/20 16:08 BP 128/58 07/07/20 17:00 Pulse Ox 100 07/07/20 17:10 - Physical Examination General: No Apparent Distress HEENT: Positive: EOMI, Normocephaly, Mucus Membranes Moist Neck: Positive: neck supple, trachea midline Cardiac: Positive: irregularly irregular, S1/S2 Lungs: Positive: clear to auscultation Neuro: Positive: Grossly Intact Abdomen: Positive: Soft, Tender (In the left lower quadrant) Skin: Negative: Rash, Wound Musculoskeletal: Normal Range of Motion Extremities: Present: upper extr. pulses, lower extr. pulses. Absent: edema - Labs and Meds CBC 07/06/20 Range/Units 19:14 WBC 8.7 (4.5-11.0) K/mm3 RBC 3.80 (3.65-5.03) M/mm3 Hgb 11.9 (11.8-15.2) gm/dl Hct 35.2 L (35.5-45.6) % Plt Count 226 (140-440) K/mm3 Lymph # (Auto) 0.9 L (1.2-5.4) K/mm3 [place] # (Auto) 0.9 H (0.0-0.8) K/mm3 Eos # (Auto) 0.3 (0.0-0.4) K/mm3 Baso # (Auto) 0.2 H (0.0-0.1) K/mm3 Comprehensive Metabolic Panel 07/07/20 Range/Units 05:01 Sodium 134 L (137-145) mmol/L Potassium 4.1 (3.6-5.0) mmol/L Chloride 95.3 L (98-107) mmol/L Carbon Dioxide 27 (22-30) mmol/L BUN 34 H (9-20) mg/dL Creatinine 6.4 H (0.8-1.3) mg/dL Glucose 108 H (75-100) mg/dL Calcium 8.8 (8.4-10.2) mg/dL - Imaging and Cardiology Echo: report reviewed (Echo reviewed (07/06/20): EF 60-65%. Mild LVH. ) - Telemetry EKG Rhythm: Atrial Fibrillation
[2020-07-07] MEDS ORDERED: LACTULOSE 20 GM/30 ML ORAL LIQD PO ONE (23:00)
[2020-07-08] MEDS: INSULIN LISPRO 100 UNIT/ML SUB-Q SCH ×4 (00:33→17:08)
[2020-07-08] MEDS: MORPHINE 2 MG/1 ML INJ IV PRN ×4 (04:40→23:56)
[2020-07-08] MEDS: IPRATROPIUM/ALBUTEROL SULFATE 3 ML AMPUL.NEB IH SCH ×3 (07:58→20:05)
[2020-07-08] MEDS: DOCUSATE SODIUM 100 MG CAP PO SCH ×2 (09:13→23:55)
[2020-07-08] MEDS: POLYETHYLENE GLYCOL 3350 17 GM POWDER PO SCH (09:13)
[2020-07-08] MEDS: FAMOTIDINE 20 MG/2 ML INJ IV SCH (09:13)
[2020-07-08] MEDS: carvediloL 3.125 MG TAB PO SCH ×2 (09:13→23:55)
[2020-07-08] MEDS ORDERED: HEPARIN 10,000 UNITS/10 ML VIAL IV PRN (10:15)
--- NOTE | 2020-07-08 10:15 | Progress Note ---
Assessment and Plan Assessment and plan: #Incarcerated inguinal hernia Surgery consulted Plan for hernia repair as per surgery Patient needs a preop cardiology evaluation as per surgery. Cardiology has been consulted #Nonsustained V. tach has a history of systolic heart failure and has an AICD Cardiology evaluation appreciated. 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 He also endorses right testicular pain and painful urination. Denies fever, chills, nausea, vomiting, diarrhea, constipation, urinary retention, hematuria, penile discharge, testicular swelling. Denies other complaints at this time. In the emergency room CT scan of the abdomen shows medium sized left inguinal hernia containing a loop of distal colon without evidence of obstruction mild associated mesenteric fat necrosis is present. Cholelithiasis. Medium sized fat-containing periumbilical hernia with mild fat necrosis. Patient admitted for further evaluation and surgery was consulted. 07/06. No new complaints this AM. Had 22 beats of VT. He has AICD. Cardiology has been consulted for preop assessment prior to possible hernia repair. Continue to hold xarelto for now. 07/07. States his groin pain is bearable this AM. He wants to have procedure during this admission. Started him on low dose coreg. 07/08. Cardiology evaluation appreciated. Plan for stress test tomorrow. Hospitalist Physical - Physical exam Narrative exam: VITAL SIGNS: Reviewed. GENERAL: Awake HEAD: No signs of head trauma. EYES: Pupils are equal. Extraocular motions intact. MOUTH: Oropharynx is normal. NECK: No adenopathy, no JVD. CHEST: Chest with diminished breath sounds bilaterally. No wheezes, rales, or rhonchi. CARDIAC: normal S1 and S2, without murmurs, gallops, or rubs. ABDOMEN: Soft, non tender and non distended. No rebound or guarding, and no masses palpated. Bowel Sounds normal. MUSCULOSKELETAL: No edema : Left inguinal swelling NEUROLOGIC EXAM: Alert and oriented x3. No focal neurologic deficits SKIN: No obvious lesions - Constitutional Vitals: Temp Pulse Resp BP Pulse Ox 98.4 F 78 18 117/66 96 07/08/20 08:30 07/08/20 08:31 07/08/20 08:31 07/08/20 09:13 07/08/20 08:31 Results - Labs CBC & Chem 7: 07/06/20 19:14 07/07/20 05:01 Labs: Laboratory Last Values WBC 8.7 K/mm3 (4.5-11.0) 07/06/20 19:14 RBC 3.80 M/mm3 (3.65-5.03) 07/06/20 19:14 Hgb 11.9 gm/dl (11.8-15.2) 07/06/20 19:14 Hct 35.2 % (35.5-45.6) L 07/06/20 19:14 MCV 93 fl (84-94) 07/06/20 19:14 MCH 31 pg (28-32) 07/06/20 19:14 MCHC 34 % (32-34) 07/06/20 19:14 RDW 14.1 % (13.2-15.2) 07/06/20 19:14 Plt Count 226 K/mm3 (140-440) 07/06/20 19:14 Lymph % (Auto) 10.7 % (13.4-35.0) L 07/06/20 19:14 [place] % (Auto) 9.9 % (0.0-7.3) H 07/06/20 19:14 Eos % (Auto) 3.3 % (0.0-4.3) 07/06/20 19:14 Baso % (Auto) 2.0 % (0.0-1.8) H 07/06/20 19:14 Lymph # (Auto) 0.9 K/mm3 (1.2-5.4) L 07/06/20 19:14 [place] # (Auto) 0.9 K/mm3 (0.0-0.8) H 07/06/20 19:14 Eos # (Auto) 0.3 K/mm3 (0.0-0.4) 07/06/20 19:14 Baso # (Auto) 0.2 K/mm3 (0.0-0.1) H 07/06/20 19:14 Seg Neutrophils % 74.1 % (40.0-70.0) H 07/06/20 19:14 Seg Neutrophils # 6.5 K/mm3 (1.8-7.7) 07/06/20 19:14 Sodium 134 mmol/L (137-145) L 07/07/20 05:01 Potassium 4.1 mmol/L (3.6-5.0) 07/07/20 05:01 Chloride 95.3 mmol/L (98-107) L 07/07/20 05:01 Carbon Dioxide 27 mmol/L (22-30) 07/07/20 05:01 Anion Gap 16 mmol/L 07/07/20 05:01 BUN 34 mg/dL (9-20) H 07/07/20 05:01 Creatinine 6.4 mg/dL (0.8-1.3) H 07/07/20 05:01 Estimated GFR 11 ml/min 07/07/20 05:01 BUN/Creatinine Ratio 5 % 07/07/20 05:01 Glucose 108 mg/dL (75-100) H 07/07/20 05:01 POC Glucose 104 mg/dL (70-105) 07/08/20 04:47 Lactic Acid 1.80 mmol/L (0.7-2.0) 07/05/20 20:43 Calcium 8.8 mg/dL (8.4-10.2) 07/07/20 05:01 Magnesium 2.00 mg/dL (1.7-2.3) 07/07/20 05:01 Total Bilirubin 0.40 mg/dL (0.1-1.2) 07/05/20 21:23 AST 25 units/L (5-40) 07/05/20 21:23 ALT 14 units/L (7-56) 07/05/20 21:23 Alkaline Phosphatase 97 units/L (35-129) 07/05/20 21:23 Total Protein 8.1 g/dL (6.3-8.2) 07/05/20 21:23 Albumin 4.1 g/dL (3.9-5) 07/05/20 21:23 Albumin/Globulin Ratio 1.0 % 07/05/20 21:23 Urine Color Yellow (Yellow) 07/06/20 04:58 Urine Turbidity Cloudy (Clear) 07/06/20 04:58 Urine pH 5.0 (5.0-7.0) 07/06/20 04:58 Ur Specific [place] 1.009 (1.003-1.030) 07/06/20 04:58 Urine Protein 30 mg/dl mg/dL (Negative) 07/06/20 04:58 Urine Glucose (UA) Neg mg/dL (Negative) 07/06/20 04:58 Urine Ketones Neg mg/dL (Negative) 07/06/20 04:58 Urine Blood Sm (Negative) 07/06/20 04:58 Urine Nitrite Neg (Negative) 07/06/20 04:58 Urine Bilirubin Neg (Negative) 07/06/20 04:58 Urine Urobilinogen < 2.0 mg/dL (<2.0) 07/06/20 04:58 Ur Leukocyte Esterase Lg (Negative) 07/06/20 04:58 Urine WBC (Auto) > 182.0 /HPF (0.0-6.0) H 07/06/20 04:58 Urine RBC (Auto) 16.0 /HPF (0.0-6.0) 07/06/20 04:58 U Epithel Cells (Auto) 3.0 /HPF (0-13.0) 07/06/20 04:58 Urine Bacteria (Auto) 3+ /HPF (Negative) 07/06/20 04:58 Urine WBC Clumps 3+ /HPF 07/06/20 04:58 Urine Mucus Few /HPF 07/06/20 04:58 Urine Sperm 1+ /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) 07/06/20 04:58 Hepatitis A IgM Ab Non-reactive (NonReactive) 07/06/20 10:40 Hep Bs Antigen Non-reactive (Negative) 07/06/20 10:40 Hep B Core IgM Ab Non-reactive (NonReactive) 07/06/20 10:40 Hepatitis C Antibody Non-reactive (NonReactive) 07/06/20 10:40 [place]/IV: Voiding Method Urinal Active Medications - Current Medications Current Medications: Generic Name Dose Route Start Last Admin Trade Name Freq PRN Reason Stop Dose Admin Acetaminophen 650 mg 07/05/20 23:20 Acetaminophen 325 Mg Tab PO Q4H PRN Pain MILD(1-3)/Fever >100.5/CHANG Albuterol 2.5 mg 07/07/20 02:02 Albuterol 2.5 Mg/3 Ml Nebu IH Q4HRT PRN Shortness Of Breath Albuterol/Ipratropium 1 ampul 07/07/20 08:00 07/08/20 07:58 Ipratropium/Albuterol Sulfate 3 Ml Ampul.Neb IH 1 ampul TIDRT ARSLAN Administration Carvedilol 3.125 mg 07/07/20 10:00 07/08/20 09:13 Carvedilol 3.125 Mg Tab PO 3.125 mg BID ARSLAN Administration Dextrose 50 ml 07/05/20 23:23 07/06/20 06:28 Dextrose 50% In Water (25gm) 50 Ml Syringe IV 50 ml Q30MIN PRN Administration Hypoglycemia Protocol Docusate Sodium 100 mg 07/06/20 11:00 07/08/20 09:13 Docusate Sodium 100 Mg Cap PO 100 mg BID ARSLAN Administration Famotidine 20 mg 07/06/20 10:00 07/08/20 09:13 Famotidine 20 Mg/2 Ml Inj IV 20 mg DAILY ARSLAN Administration Levofloxacin/Dextrose 250 mg in 50 mls @ 50 mls/hr 07/06/20 11:00 07/06/20 14:22 Levaquin 250mg/50ml IV 50 mls/hr Q48H ARSLAN Administration Insulin Human Lispro 0 unit 07/06/20 00:00 07/08/20 07:44 Insulin Lispro 100 Unit/Ml SUB-Q Not Given Q6HR ARSLAN Protocol Morphine Sulfate 2 mg 07/05/20 23:20 07/08/20 04:40 Morphine 2 Mg/1 Ml Inj IV 2 mg Q4H PRN Administration Pain, Moderate (4-6) Ondansetron HCl 4 mg 07/05/20 23:20 Ondansetron 4 Mg/2 Ml Inj IV Q8H PRN Nausea And Vomiting Polyethylene Glycol 17 gm 07/06/20 11:00 07/08/20 09:13 Polyethylene Glycol 3350 17 Gm Powder PO 17 gm QDAY ARSLAN Administration Sodium Chloride 10 ml 07/06/20 10:00 07/08/20 09:13 Sodium Chloride 0.9% 10 Ml Flush Syringe IV 10 ml BID ARSLAN Administration Sodium Chloride 10 ml 07/05/20 23:20 Sodium Chloride 0.9% 10 Ml Flush Syringe IV PRN PRN LINE FLUSH Nutrition/Malnutrition Assess - Dietary Evaluation Nutrition/Malnutrition Findings: Nutrition Notes Start: 07/06/20 11:44 Freq: Status: Active Protocol: Document 07/06/20 11:44 (Rec: 07/06/20 11:46 MK [id number]) Nutrition Notes Need for Assessment generated from: MD Order,electro mechanical engineer,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 RN screen for new on set DM. Per chart, pt with DM in 2018. Pt not in room at time of visit. Nutrition Intervention Follow-Up By: 07/09/20 Additional Comments FU for diet education
[2020-07-08] MEDS: HEPARIN/ 0.45% NACL DRIP 25,000 UNIT/500 ML BAG IV SCH (13:00)
[2020-07-08 15:00] LABS: Hematocrit 32.8 % (35.5-45.6); Hemoglobin 10.8 gm/dl (11.8-15.2)
[2020-07-08] MEDS ORDERED: SODIUM CHLORIDE 0.9% 100 ML IV PRN (15:05)
--- NOTE | 2020-07-08 15:08 | Progress Note ---
Assessment and Plan Impression: * End stage renal disease * Incarcerated inguinal hernia * Urinary tract infection * Atrial fibrillation on chronic anticoagulation * Anemia secondary to ESRD * Secondary hyperparathyroidism Plan: * No acute need for HD today. Patient is s/p HD on Thursday * Continue MWF schedule * UF as tolerated * Surgery recommendations for surgical repair noted * Cardiology following. Stress test planned for tomorrow * Abx per primary team * Diet per surgery * Epogen TIW prn Subjective Date of service: 07/08/20 Principal diagnosis: Incarcerated inguinal hernia, Perm AF, ESRD, s/p PPM, ESRD, NSVT Interval history: Patient has no complaints today. Reports pain related to inguinal hernia. Tolerating po. Objective - Vital Signs Vital signs: Vital Signs - 12hr 07/08/20 07/08/20 07/08/20 04:25 04:40 07:58 Temperature 98.1 F Pulse Rate 76 Pulse Rate [ 73 Anterior Bilateral Throughout] Respiratory 20 20 Rate Respiratory 17 Rate [Anterior Bilateral Throughout] Blood Pressure 109/62 O2 Sat by Pulse 96 Oximetry 07/08/20 07/08/20 07/08/20 07:59 08:30 08:31 Temperature 98.4 F Pulse Rate 78 Pulse Rate [ Anterior Bilateral Throughout] Respiratory 18 Rate Respiratory Rate [Anterior Bilateral Throughout] Blood Pressure 117/66 O2 Sat by Pulse 99 96 Oximetry 07/08/20 07/08/20 09:13 11:00 Temperature Pulse Rate Pulse Rate [ Anterior Bilateral Throughout] Respiratory 18 Rate Respiratory Rate [Anterior Bilateral Throughout] Blood Pressure 117/66 O2 Sat by Pulse 98 Oximetry - General Appearance General appearance: well-developed EENT: ATNC Respiratory: Present: Clear to Ascultation Cardiology: regular, S1S2 Gastrointestinal: normal, no distended Integumentary: no rash, warm and dry Neurologic: no focal deficit, alert and oriented x3 Psychiatric: cooperative - Lab 07/08/20 14:09 07/07/20 05:01 Most recent lab results Calcium 8.8 mg/dL (8.4-10.2) 07/07/20 05:01 Magnesium 2.00 mg/dL (1.7-2.3) 07/07/20 05:01 Medications & Allergies - Medications Allergies/Adverse Reactions: Allergies nifedipine [From Procardia] Allergy (Verified 07/05/20 15:30) muscle spasms Home Medications: Home Medications Medication Instructions Recorded Confirmed Last Taken Type Furosemide [Lasix TAB] 80 mg PO DAILY 02/12/18 04/27/18 04/25/18 09:00 History Metformin HCl 500 mg PO DAILY 02/12/18 04/27/18 04/25/18 09:00 History Potassium Chloride [Klor-Con M20] 20 meq PO DAILY 02/12/18 04/27/18 04/25/18 09:00 History Rivaroxaban [Xarelto] 20 mg PO DAILY 02/12/18 04/27/18 04/25/18 09:00 History Sitagliptin Phosphate [Januvia] 100 mg PO DAILY 02/12/18 04/27/18 04/25/18 09:00 History allopurinoL [Allopurinol] 100 mg PO DAILY 02/12/18 04/27/18 04/25/18 09:00 History lisinopriL [Zestril TAB] 10 mg PO DAILY 02/12/18 04/27/18 04/25/18 09:00 History metOLazone [Metolazone] 5 mg PO DAILY 02/12/18 04/27/18 04/25/18 09:00 History HYDROcodone/APAP 5-325 [[place] 1 each PO Q6HR PRN #30 tablet 02/16/18 04/27/18 04/25/18 09:00 Rx 5/325] HYDROcodone/APAP 7.5-325 [[place] 1 each PO Q6HR PRN #30 tablet 04/27/18 Unknown Rx 7.5/325] Active Medications: Generic Name Dose Route Start Last Admin Trade Name Isaakq PRN Reason Stop Dose Admin Acetaminophen 650 mg 07/05/20 23:20 Acetaminophen 325 Mg Tab PO Q4H PRN Pain MILD(1-3)/Fever >100.5/CHANG Albuterol 2.5 mg 07/07/20 02:02 Albuterol 2.5 Mg/3 Ml Nebu IH Q4HRT PRN Shortness Of Breath Albuterol/Ipratropium 1 ampul 07/07/20 08:00 07/08/20 07:58 Ipratropium/Albuterol Sulfate 3 Ml Ampul.Neb IH 1 ampul TIDRT ARSLAN Administration Carvedilol 3.125 mg 07/07/20 10:00 07/08/20 09:13 Carvedilol 3.125 Mg Tab PO 3.125 mg BID ARSLAN Administration Dextrose 50 ml 07/05/20 23:23 07/06/20 06:28 Dextrose 50% In Water (25gm) 50 Ml Syringe IV 50 ml Q30MIN PRN Administration Hypoglycemia Protocol Docusate Sodium 100 mg 07/06/20 11:00 07/08/20 09:13 Docusate Sodium 100 Mg Cap PO 100 mg BID ARSLAN Administration Famotidine 20 mg 07/06/20 10:00 07/08/20 09:13 Famotidine 20 Mg/2 Ml Inj IV 20 mg DAILY ARSLAN Administration Heparin Sodium (Porcine) 5,800 unit 07/08/20 10:15 Heparin 10,000 Units/10 Ml Vial 40 unit/kg (5800 unit) IV Q6H PRN Anti-Xa Assay<0.1 units/ml Levofloxacin/Dextrose 250 mg in 50 mls @ 50 mls/hr 07/06/20 11:00 07/08/20 11:42 Levaquin 250mg/50ml IV 50 mls/hr Q48H ARSLAN Administration Heparin Sodium/Sodium Chloride 25,000 unit in 500 mls @ 30 mls/hr 07/08/20 11:00 07/08/20 13:00 Heparin/ 0.45% Nacl-25,000 Unit/500 Ml IV 1,500 units/hr TITR ARSLAN 30 mls/hr Administration Protocol 1,500 UNITS/HR Sodium Chloride 100 mls @ 999 mls/hr 07/08/20 15:05 Nacl 0.9% IV WENDI PRN Hypotension Insulin Human Lispro 0 unit 07/06/20 00:00 07/08/20 12:13 Insulin Lispro 100 Unit/Ml SUB-Q Not Given Q6HR [facility] Protocol Morphine Sulfate 2 mg 07/05/20 23:20 07/08/20 11:42 Morphine 2 Mg/1 Ml Inj IV 2 mg Q4H PRN Administration Pain, Moderate (4-6) Ondansetron HCl 4 mg 07/05/20 23:20 Ondansetron 4 Mg/2 Ml Inj IV Q8H PRN Nausea And Vomiting Polyethylene Glycol 17 gm 07/06/20 11:00 07/08/20 09:13 Polyethylene Glycol 3350 17 Gm Powder PO 17 gm QDAY ARSLAN Administration Sodium Chloride 10 ml 07/06/20 10:00 07/08/20 09:13 Sodium Chloride 0.9% 10 Ml Flush Syringe IV 10 ml BID ARSLAN Administration Sodium Chloride 10 ml 07/05/20 23:20 Sodium Chloride 0.9% 10 Ml Flush Syringe IV PRN PRN LINE FLUSH
[2020-07-08 15:11] LABS: INR 1.27 (0.87-1.13)
[2020-07-08 15:12] LABS: Partial Thromboplastin Time 51.1 Sec. (24.2-36.6)
--- NOTE | 2020-07-08 16:32 | Progress Note ---
Assessment and Plan Lexiscan stress MPI in a.m. to complete preoperative cardiac evaluation in view of recent long run of nonsustained VT. - Patient Problems (1) Incarcerated inguinal hernia Current Visit: Yes Status: Acute (2) NSVT (nonsustained ventricular tachycardia) Current Visit: Yes Status: Acute (3) Cardiac pacemaker in situ Current Visit: Yes Status: Chronic (4) Permanent atrial fibrillation Current Visit: Yes Status: Chronic (5) ESRD (end stage renal disease) Current Visit: Yes Status: Chronic (6) Hypertension Current Visit: Yes Status: Chronic Qualifiers: Hypertension type: essential hypertension Qualified Code(s): I10 - Essential (primary) hypertension (7) Diabetes mellitus Current Visit: Yes Status: Chronic Qualifiers: Diabetes mellitus type: type 2 Subjective Date of service: 07/08/20 Principal diagnosis: Incarcerated inguinal hernia, Perm AF, ESRD, s/p PPM, ESRD, NSVT Interval history: No new complaint. In AF in the 80s. Objective Vital Signs Last Vital Signs Temp 98.4 F 07/08/20 08:30 Pulse 65 07/08/20 16:12 Resp 19 07/08/20 16:12 BP 117/66 07/08/20 09:13 Pulse Ox 98 07/08/20 11:00 - Physical Examination General: No Apparent Distress HEENT: Positive: EOMI, Normocephaly, Mucus Membranes Moist Neck: Positive: neck supple, trachea midline Cardiac: Positive: irregularly irregular, S1/S2 Neuro: Positive: Grossly Intact Abdomen: Positive: Soft, Tender (In the left lower quadrant) Skin: Negative: Rash, Wound Musculoskeletal: Normal Range of Motion Extremities: Present: upper extr. pulses, lower extr. pulses. Absent: edema - Labs and Meds Coagulation 07/08/20 Range/Units 14:09 PT 15.7 H (12.2-14.9) Sec. INR 1.27 H (0.87-1.13) APTT 51.1 H (24.2-36.6) Sec. CBC 07/08/20 Range/Units 14:09 Hgb 10.8 L (11.8-15.2) gm/dl Hct 32.8 L (35.5-45.6) % Plt Count 196 (140-440) K/mm3 - Imaging and Cardiology Echo: report reviewed (Echo reviewed (07/06/20): EF 60-65%. Mild LVH. ) - Telemetry EKG Rhythm: Atrial Fibrillation
[2020-07-09 06:08] LABS: Calcium 8.5 mg/dL (8.4-10.2)
[2020-07-09] MEDS ORDERED: REGADENOSON 0.4 MG/5 ML INJ IV ONE ×2 (08:06→08:08)
[2020-07-09] MEDS: INSULIN LISPRO 100 UNIT/ML SUB-Q SCH ×3 (09:15→17:54)
[2020-07-09] MEDS: MORPHINE 2 MG/1 ML INJ IV PRN ×4 (09:45→22:09)
--- NOTE | 2020-07-09 10:26 | Progress Note ---
Assessment and Plan pt has normal lv function and stress test showed no signficant ischemia and pt on coreg, pt has no cardiac contraindications for surgery, is moderate risk cardiovascular patient going for moderate risk cardiovascular surgery. - Patient Problems (1) Incarcerated inguinal hernia Current Visit: Yes Status: Acute (2) NSVT (nonsustained ventricular tachycardia) Current Visit: Yes Status: Acute (3) Ventricular arrhythmia Current Visit: Yes Status: Acute (4) Cardiac pacemaker in situ Current Visit: Yes Status: Chronic (5) Diabetes mellitus Current Visit: Yes Status: Chronic Qualifiers: Diabetes mellitus type: type 2 Chronic kidney disease stage: on chronic dialysis (6) History of atrial fibrillation Current Visit: Yes Status: Chronic Subjective Date of service: 07/09/20 Principal diagnosis: Incarcerated inguinal hernia, Perm AF, ESRD, s/p PPM, ESRD, NSVT Interval history: no cp or palpations Objective Vital Signs Temp Pulse Pulse Resp Resp Resp BP 07/09/20 08:40 117/53 07/09/20 08:38 121/61 07/09/20 08:37 113/70 07/09/20 08:36 120/58 07/09/20 08:20 110/60 07/09/20 08:14 116/64 07/09/20 04:21 98.0 F 77 20 113/67 07/09/20 04:16 98.0 F 74 20 138/72 07/09/20 00:03 82 20 125/67 07/09/20 00:00 98.6 F 98 H 20 07/08/20 23:56 20 07/08/20 23:55 72 92/50 07/08/20 22:00 66 07/08/20 21:42 18 07/08/20 20:08 70 18 07/08/20 20:07 07/08/20 19:51 96.9 F L 72 20 92/50 07/08/20 17:10 92 H 07/08/20 17:02 97.6 F 68 18 120/66 07/08/20 16:12 65 19 07/08/20 11:00 18 BP BP Pulse Ox 07/09/20 08:40 07/09/20 08:38 07/09/20 08:37 07/09/20 08:36 07/09/20 08:20 07/09/20 08:14 07/09/20 04:21 100 04/26/21 04:16 65 L 07/09/20 00:03 99 07/09/20 00:00 130/56 130/56 98 07/08/20 23:56 07/08/20 23:55 07/08/20 22:00 07/08/20 21:42 07/08/20 20:08 07/08/20 20:07 100 07/08/20 19:51 100 07/08/20 17:10 07/08/20 17:02 100 07/08/20 16:12 07/08/20 11:00 98 - Physical Examination General: No Apparent Distress HEENT: Positive: EOMI, Normocephaly, Mucus Membranes Moist Neck: Positive: neck supple, trachea midline Cardiac: Positive: Irregularly Regular Lungs: Positive: clear to auscultation Neuro: Positive: Grossly Intact Abdomen: Positive: Soft, Tender (In the left lower quadrant) Skin: Negative: Rash, Wound Musculoskeletal: Normal Range of Motion Extremities: Present: upper extr. pulses, lower extr. pulses. Absent: edema - Labs and Meds Coagulation 07/08/20 Range/Units 14:09 PT 15.7 H (12.2-14.9) Sec. INR 1.27 H (0.87-1.13) APTT 51.1 H (24.2-36.6) Sec. CBC 07/08/20 Range/Units 14:09 Hgb 10.8 L (11.8-15.2) gm/dl Hct 32.8 L (35.5-45.6) % Plt Count 196 (140-440) K/mm3 Comprehensive Metabolic Panel 07/09/20 Range/Units 04:48 Sodium 135 L (137-145) mmol/L Potassium 4.6 (3.6-5.0) mmol/L Chloride 95.5 L (98-107) mmol/L Carbon Dioxide 24 (22-30) mmol/L BUN 56 H (9-20) mg/dL Creatinine 8.4 H (0.8-1.3) mg/dL Glucose 79 (75-100) mg/dL Calcium 8.5 (8.4-10.2) mg/dL - Imaging and Cardiology EKG: report reviewed, image reviewed Pharmacologic stress test: report reviewed (normal myocardial perfusion) Echo: report reviewed (Echo reviewed (07/06/20): EF 60-65%. Mild LVH. ) - Telemetry EKG Rhythm: Atrial Fibrillation
--- NOTE | 2020-07-09 10:28 | Nuclear Medicine Report ---
APPROVED REPORT Exam: Nuclear Stress Test Patient Location: [facility] Ht: 5 ft 0 in Wt: 317 lbs BSA: 2.27 m2 HR: 72 bpm BP: 116/64 mmHg BMI: 61.90 Rhythm: Atrial Fibrillation Medical History Medical History: COPD Stress Test Details Stress Test: Pharmacologic stress testing performed using 0.4 mg of regadenoson per 5 mL given IV over 10 seconds. Reason for pharmacologic stress test: physical limitation. HR Resting HR: 72 bpmMax Heart Rate (APMHR): 152 bpm Max HR Achieved: 84 bpmTarget HR (85% APMHR): 129 bpm % of APMHR: 55 Recovery HR: 75 bpm BP Resting BP: 116/64 mmHg Max BP: 120/58 mmHg Recovery BP: 113/70 mmHg ECG Resting ECG: A FIB Clinical Reason for Termination: Completed protocol Stress Symptoms: None NM EXAM: Myocardial Perfusion REST/STRESS Imaging Protocol: Rest Tc-99m/Stress Tc-99m 1 day Resting Data Rest SPECT myocardial perfusion imaging was performed in supine position 45 minutes following the intravenous injection of 10 mCi of Tc-99m Myoview. Time of rest injection: 0700 Pharmacologic Stress Pharmacologic stress test was performed by injecting Regadenoson 0.4 mg IV push followed by the intravenous injection of 28 mCi of Tc-99m Myoview. Time of stress injection: 0840 Stress only was performed in the Supine position. Study Data TID = 0.91. Perfusion Nuclear Conclusion ECG Findings: negative for ischemia Clinical Findings: negative for ischemia Nuclear Findings: negative for ischemia Exercise Capacity: not assessed Left Ventricular Function: normal Normal study. No scintigraphic evidence for myocardial ischemia or scar. not gated secondary to afib, negative lexiscan ekg
--- NOTE | 2020-07-09 10:37 | Progress Note ---
Subjective Date of service: 07/09/20 Principal diagnosis: Incarcerated inguinal hernia, Perm AF, ESRD, s/p PPM, ESRD, NSVT Interval history: Impression: * End stage renal disease * Incarcerated inguinal hernia * Urinary tract infection * Atrial fibrillation on chronic anticoagulation * Anemia secondary to ESRD * Secondary hyperparathyroidism Plan:y * Continue MWF schedule * UF as tolerated * Surgery recommendations for surgical repair noted * Cardiology following. * Abx per primary team * Diet per surgery * Epogen TIW prn Subjective Principal diagnosis: Incarcerated inguinal hernia, Perm AF, ESRD, s/p PPM, ESRD, NSVT Interval history: Patient has no complaints today. Reports pain related to inguinal hernia. Tolerating po. Objective General appearance: well-developed EENT: ATNC Respiratory: Present: Clear to Ascultation Cardiology: regular, S1S2 Gastrointestinal: normal, no distended Integumentary: no rash, warm and dry Neurologic: no focal deficit, alert and oriented x3 Objective - Vital Signs Vital signs: Vital Signs - 12hr 07/08/20 07/08/20 07/09/20 23:55 23:56 00:00 Temperature 98.6 F Pulse Rate 72 98 H Respiratory 20 20 Rate Blood Pressure 92/50 Blood Pressure 130/56 [Left] Blood Pressure 130/56 [Right] O2 Sat by Pulse 98 Oximetry 07/09/20 07/09/20 07/09/20 00:03 04:16 04:21 Temperature 98.0 F 98.0 F Pulse Rate 82 74 77 Respiratory 20 20 20 Rate Blood Pressure 125/67 138/72 113/67 Blood Pressure [Left] Blood Pressure [Right] O2 Sat by Pulse 99 65 L 100 Oximetry 07/09/20 07/09/20 07/09/20 08:14 08:20 08:36 Temperature Pulse Rate Respiratory Rate Blood Pressure 116/64 110/60 120/58 Blood Pressure [Left] Blood Pressure [Right] O2 Sat by Pulse Oximetry 07/09/20 07/09/20 07/09/20 08:37 08:38 08:40 Temperature Pulse Rate Respiratory Rate Blood Pressure 113/70 121/61 117/53 Blood Pressure [Left] Blood Pressure [Right] O2 Sat by Pulse Oximetry - Lab 07/08/20 14:09 07/09/20 04:48 Most recent lab results Calcium 8.5 mg/dL (8.4-10.2) 07/09/20 04:48 Magnesium 2.00 mg/dL (1.7-2.3) 07/07/20 05:01 Medications & Allergies - Medications Allergies/Adverse Reactions: Allergies nifedipine [From Procardia] Allergy (Verified 07/05/20 15:30) muscle spasms Home Medications: Home Medications Medication Instructions Recorded Confirmed Last Taken Type Furosemide [Lasix TAB] 80 mg PO DAILY 02/12/18 04/27/18 04/25/18 09:00 History Metformin HCl 500 mg PO DAILY 02/12/18 04/27/18 04/25/18 09:00 History Potassium Chloride [Klor-Con M20] 20 meq PO DAILY 02/12/18 04/27/18 04/25/18 09:00 History Rivaroxaban [Xarelto] 20 mg PO DAILY 02/12/18 04/27/18 04/25/18 09:00 History Sitagliptin Phosphate [Januvia] 100 mg PO DAILY 02/12/18 04/27/18 04/25/18 09:00 History allopurinoL [Allopurinol] 100 mg PO DAILY 02/12/18 04/27/18 04/25/18 09:00 History lisinopriL [Zestril TAB] 10 mg PO DAILY 02/12/18 04/27/18 04/25/18 09:00 History metOLazone [Metolazone] 5 mg PO DAILY 02/12/18 04/27/18 04/25/18 09:00 History HYDROcodone/APAP 5-325 [[place] 1 each PO Q6HR PRN #30 tablet 02/16/18 04/27/18 04/25/18 09:00 Rx 5/325] HYDROcodone/APAP 7.5-325 [[place] 1 each PO Q6HR PRN #30 tablet 04/27/18 Unknown Rx 7.5/325] Active Medications: Generic Name Dose Route Start Last Admin Trade Name Freq PRN Reason Stop Dose Admin Acetaminophen 650 mg 07/05/20 23:20 Acetaminophen 325 Mg Tab PO Q4H PRN Pain MILD(1-3)/Fever >100.5/CHANG Albuterol 2.5 mg 07/07/20 02:02 Albuterol 2.5 Mg/3 Ml Nebu IH Q4HRT PRN Shortness Of Breath Albuterol/Ipratropium 1 ampul 07/07/20 08:00 07/08/20 20:05 Ipratropium/Albuterol Sulfate 3 Ml Ampul.Neb IH 1 ampul TIDRT ARSLAN Administration Carvedilol 3.125 mg 07/07/20 10:00 07/08/20 23:55 Carvedilol 3.125 Mg Tab PO 3.125 mg BID ARSLAN Administration Dextrose 50 ml 07/05/20 23:23 07/06/20 06:28 Dextrose 50% In Water (25gm) 50 Ml Syringe IV 50 ml Q30MIN PRN Administration Hypoglycemia Protocol Docusate Sodium 100 mg 07/06/20 11:00 07/08/20 23:55 Docusate Sodium 100 Mg Cap PO 100 mg BID ARSLAN Administration Famotidine 20 mg 07/06/20 10:00 07/08/20 09:13 Famotidine 20 Mg/2 Ml Inj IV 20 mg DAILY ARSLAN Administration Guaifenesin 200 mg 07/09/20 10:00 Guaifenesin 100 Mg/5 Ml Oral Liqd PO Q4H PRN Cough Heparin Sodium (Porcine) 5,800 unit 07/08/20 10:15 Heparin 10,000 Units/10 Ml Vial 40 unit/kg (5800 unit) IV Q6H PRN Anti-Xa Assay<0.1 units/ml Levofloxacin/Dextrose 250 mg in 50 mls @ 50 mls/hr 07/06/20 11:00 07/08/20 11:42 Levaquin 250mg/50ml IV 50 mls/hr Q48H ARSLAN Administration Heparin Sodium/Sodium Chloride 25,000 unit in 500 mls @ 30 mls/hr 07/08/20 11:00 07/09/20 06:26 Heparin/ 0.45% Nacl-25,000 Unit/500 Ml IV 1,350 units/hr TITR ARSLAN 27 mls/hr Titration Protocol 1,500 UNITS/HR Sodium Chloride 100 mls @ 999 mls/hr 07/08/20 15:05 Nacl 0.9% IV WENDI PRN Hypotension Insulin Human Lispro 0 unit 07/06/20 00:00 07/09/20 09:15 Insulin Lispro 100 Unit/Ml SUB-Q Not Given Q6HR [facility] Protocol Morphine Sulfate 2 mg 07/05/20 23:20 07/08/20 23:56 Morphine 2 Mg/1 Ml Inj IV 2 mg Q4H PRN Administration Pain, Moderate (4-6) Ondansetron HCl 4 mg 07/05/20 23:20 Ondansetron 4 Mg/2 Ml Inj IV Q8H PRN Nausea And Vomiting Polyethylene Glycol 17 gm 07/06/20 11:00 07/08/20 09:13 Polyethylene Glycol 3350 17 Gm Powder PO 17 gm QDAY ARSLAN Administration Sodium Chloride 10 ml 07/06/20 10:00 07/08/20 23:56 Sodium Chloride 0.9% 10 Ml Flush Syringe IV 10 ml BID ARSLAN Administration Sodium Chloride 10 ml 07/05/20 23:20 Sodium Chloride 0.9% 10 Ml Flush Syringe IV PRN PRN LINE FLUSH
[2020-07-09] MEDS: IPRATROPIUM/ALBUTEROL SULFATE 3 ML AMPUL.NEB IH SCH ×5 (10:42→19:14)
--- NOTE | 2020-07-09 11:28 | Event Note ---
Date: 07/09/20 Pt chart reviewed. Patient condition stable. Started on hepgtt on 07/08 per hospitalist service. Stress test today negative and cards recs reviewed - "Pt has normal lv function and stress test showed no signficant ischemia and pt on coreg, pt has no cardiac contraindications for surgery, is moderate risk cardiovascular patient going for moderate risk cardiovascular surgery". Plan: 1. Cardiac diet today, NPO p MN tonight 2. [facility] [place] [facility]. 3. Hernia repair scheduled for tomorrow 07/10/20 - consent already on chart 4. For HD today - MWF schedule
[2020-07-09] MEDS: DOCUSATE SODIUM 100 MG CAP PO SCH ×2 (11:59→22:13)
[2020-07-09] MEDS: carvediloL 3.125 MG TAB PO SCH ×2 (11:59→22:13)
[2020-07-09] MEDS: FAMOTIDINE 20 MG/2 ML INJ IV SCH (12:00)
[2020-07-09] MEDS: POLYETHYLENE GLYCOL 3350 17 GM POWDER PO SCH ×2 (12:00→15:34)
--- NOTE | 2020-07-09 14:18 | Anesthesia Consultation ---
Anesthesia Consult and Med Hx Date of service: 07/09/20 - Airway Anesthetic Teeth Evaluation: Poor (multiple missing teeth), Partials (upper) ROM Head & Neck: Adequate Mental/Hyoid Distance: Adequate Mallampati Class: Class III Intubation Access Assessment: Possibly Difficult - Pre-Operative Health Status ASA Pre-Surgery Classification: ASA3 Proposed Anesthetic Plan: General - Pulmonary Hx Smoking: Yes (smokes cigars) Hx Respiratory Symptoms: No COPD: Yes Hx Sleep Apnea: Yes (No CPAP) - Cardiovascular System Hx Hypertension: Yes Hx Coronary Artery Disease: Yes Hx Cardia Arrhythmia: Yes (chronic a-fib) Hx Pacemaker: Yes Hx Heart Murmur: No - Central Nervous System Hx Back Pain: Yes (gout) Hx Psychiatric Problems: No - Gastrointestinal Hx Gastroesophageal Reflux Disease: No - Endocrine Hx Renal Disease: Yes (DIALYSIS, last 07/09/20) Hx End Stage Renal Disease: Yes Hx Non-Insulin Dependent Diabetes: Yes Hx Thyroid Disease: No - Other Systems Hx Alcohol Use: Yes ("not anymore") Hx Cancer: No Hx Obesity: Yes (BMI 43.1)
[2020-07-09] MEDS: guaiFENesin 100 MG/5 ML ORAL LIQD PO PRN ×2 (15:16→22:15)
[2020-07-09] MEDS: HEPARIN/ 0.45% NACL DRIP 25,000 UNIT/500 ML BAG IV SCH (18:33)
[2020-07-10] MEDS: INSULIN LISPRO 100 UNIT/ML SUB-Q SCH ×3 (06:20→17:19)
[2020-07-10] MEDS: DEXTROSE 50% IN WATER (25GM) 50 ML SYRINGE IV PRN (06:21)
[2020-07-10 06:30] LABS: Hematocrit 35.1 % (35.5-45.6); Hemoglobin 11.1 gm/dl (11.8-15.2)
[2020-07-10 06:47] LABS: Calcium 8.6 mg/dL (8.4-10.2)
[2020-07-10] MEDS: IPRATROPIUM/ALBUTEROL SULFATE 3 ML AMPUL.NEB IH SCH ×5 (08:01→20:50)
[2020-07-10] MEDS ORDERED: propofoL 200 MG/20 ML VIAL IV ONE (08:47)
[2020-07-10] MEDS ORDERED: BUPIVACAINE/PF (0.5%) 5 MG/1 ML 30 ML VIAL INFILTRATI ONE ×4 (08:50→11:00)
[2020-07-10] MEDS ORDERED: LIDOCAINE (1%) 10 MG/1 ML VIAL 20 ML MDV ONE ×2 (08:50→14:26)
[2020-07-10] MEDS: DOCUSATE SODIUM 100 MG CAP PO SCH ×2 (10:00→21:21)
[2020-07-10] MEDS: POLYETHYLENE GLYCOL 3350 17 GM POWDER PO SCH (10:00)
[2020-07-10] MEDS: FAMOTIDINE 20 MG/2 ML INJ IV SCH (10:00)
[2020-07-10] MEDS ORDERED: ROCURONIUM 50 MG/5 ML INJ IV ONE ×2 (10:07→10:15)
[2020-07-10] MEDS ORDERED: PHENYLEPHRINE/NS 1,000 MCG/10 ML SYRINGE (OR USE) IV ONE (10:07)
[2020-07-10] MEDS ORDERED: LIDOCAINE MPF (2%) 20 MG/1 ML VIAL 5 ML ONE (10:07)
--- NOTE | 2020-07-10 10:32 | Progress Note ---
Assessment and Plan Cardiology is consulted for Ventricular antiarrhythmia. Pt had 22 beat run of VT. Surgical risk assessment requested. Pt for sx this am. PE deferred. Tele reviewed: 65. No events overnight. Ventricular Arrhythmia Continue Coreg 3.125mg BID. Continue to monitor on telemetry Hx of Atrial Fibrillation Anticoagulated on Xarelto a home. Resume AC postop per surgeon recs. PPM in situ PPM was interrogated on 08/2019. [employer] Demand PPM functioning normally. PPM Interrogation pending Cardiomyopathy Pt reports having cardiomyopathy, but does not currently follow with cardiology. Lyn historian. Echo reviewed (07/06/20): EF 60-65%. Mild LVH. ESRD on HD Nephrology is following. Pt for HD today. Optimize electolytes. Volume optimization per nephrology Incarcerated Hernia For surgery this am. Cardio Risk Assessment: pt has normal lv function and stress test showed no signficant ischemia and pt on coreg, pt has no cardiac contraindications for surgery, is moderate risk cardiovascular patient going for moderate risk cardiovascular surgery. DVT Prophylaxis AC held in anticipation of sx procedure this am. Will follow This pt was seen in conjunction with Dr Conner who agrees with this assessment and plan of care. - Patient Problems (1) Incarcerated inguinal hernia Current Visit: Yes Status: Acute (2) Ventricular arrhythmia Current Visit: Yes Status: Acute (3) Abdominal pain Current Visit: Yes Status: Acute Qualifiers: Abdominal location: lower abdomen, unspecified Qualified Code(s): R10.30 - Lower abdominal pain, unspecified (4) Cardiac pacemaker in situ Current Visit: Yes Status: Chronic (5) Diabetes Current Visit: Yes Status: Chronic (6) ESRD (end stage renal disease) Current Visit: Yes Status: Chronic (7) Hypertension Current Visit: Yes Status: Chronic Qualifiers: Hypertension type: essential hypertension Qualified Code(s): I10 - Essential (primary) hypertension (8) History of atrial fibrillation Current Visit: Yes Status: Chronic (9) DVT prophylaxis Current Visit: Yes Status: Acute Subjective Date of service: 07/10/20 Principal diagnosis: Incarcerated inguinal hernia, Perm AF, ESRD, s/p PPM, ESRD, NSVT Interval history: Pt for sx this am. PE deferred. Tele reviewed: 65. No events overnight. Objective Vital Signs Temp Pulse Pulse Resp Resp BP Pulse Ox 07/10/20 08:06 100 07/10/20 08:00 80 18 07/10/20 07:24 97.6 F 76 18 124/53 98 07/10/20 03:23 98.8 F 72 14 125/68 92 07/09/20 23:11 99.0 F 74 18 115/49 99 07/09/20 22:13 84 122/54 07/09/20 22:00 76 18 07/09/20 19:33 98.3 F 66 17 122/54 100 07/09/20 18:52 86 18 07/09/20 15:07 97.6 F 81 18 134/69 93 07/09/20 14:55 97.8 F 70 18 121/60 07/09/20 14:00 70 121/60 07/09/20 13:45 69 112/64 07/09/20 13:30 75 113/64 07/09/20 13:15 68 123/53 07/09/20 13:00 70 118/58 07/09/20 12:45 64 116/60 07/09/20 12:30 73 131/64 07/09/20 12:15 68 125/56 07/09/20 12:00 68 122/68 07/09/20 11:45 63 129/69 07/09/20 11:30 64 112/58 07/09/20 11:15 66 96/57 07/09/20 11:00 74 128/71 - Physical Examination Narrative exam: Exam deferred. Pt in surgery - Labs and Meds CBC 07/10/20 Range/Units 05:55 Hgb 11.1 L (11.8-15.2) gm/dl Hct 35.1 L (35.5-45.6) % Plt Count 212 (140-440) K/mm3 Comprehensive Metabolic Panel 07/10/20 Range/Units 05:55 Sodium 135 L (137-145) mmol/L Potassium 5.4 H (3.6-5.0) mmol/L Chloride 96.7 L (98-107) mmol/L Carbon Dioxide 27 (22-30) mmol/L BUN 40 H (9-20) mg/dL Creatinine 6.4 H (0.8-1.3) mg/dL Glucose 85 (75-100) mg/dL Calcium 8.6 (8.4-10.2) mg/dL - Imaging and Cardiology EKG: report reviewed, image reviewed Echo: report reviewed (Echo reviewed (07/06/20): EF 60-65%. Mild LVH. ) - Telemetry EKG Rhythm: Sinus Rhythm
[2020-07-10] MEDS ORDERED: LIDOCAINE (1%) 10 MG/1 ML VIAL 20 ML MDV INFILTRATI ONE ×3 (11:01)
--- NOTE | 2020-07-10 11:07 | Progress Note ---
Assessment and Plan Assessment and plan: #Incarcerated inguinal hernia Surgery consulted Plan for hernia repair as per surgery Stress test negative. Patient cleared from cardiology standpoint for procedure Plan for surgery on 07/10 a.m. #Nonsustained V. tach has a history of systolic heart failure and has an AICD Cardiology evaluation appreciated. Stress test negative Continue Coreg #Hypertension Continue medications #Atrial fibrillation Xarelto on hold for now. On heparin drip Resume after procedure #COPD Continue oxygen #Congestive heart failure Has AICD Has not seen a petal cutter in many years Continue home medications Cardiology on board Coreg #ESRD HD as scheduled #Diabetes mellitus Insulin protocol #Acute cystitis Levaquin #DVT prophylaxis Holding Xarelto for now Heparin drip History Interval history: 69-year-old male patient with history of end-stage renal disease on dialysis and umbilical hernia presents to the emergency department with complaints of nontraumatic left inguinal pain/swelling for the 4 days. He also endorses right testicular pain and painful urination. Denies fever, chills, nausea, vomiting, diarrhea, constipation, urinary retention, hematuria, penile discharge, testicular swelling. Denies other complaints at this time. In the emergency room CT scan of the abdomen shows medium sized left inguinal hernia containing a loop of distal colon without evidence of obstruction mild associated mesenteric fat necrosis is present. Cholelithiasis. Medium sized fat-containing periumbilical hernia with mild fat necrosis. Patient admitted for further evaluation and surgery was consulted. 07/06. No new complaints this AM. Had 22 beats of VT. He has AICD. Cardiology has been consulted for preop assessment prior to possible hernia repair. Continue to hold xarelto for now. 07/07. States his groin pain is bearable this AM. He wants to have procedure during this admission. Started him on low dose coreg. 07/08. Cardiology evaluation appreciated. Plan for stress test tomorrow. 07/09. Stress test is negative for any reversible ischemia. Cleared for surgery. Started on heparin drip yesterday as he was off xarelto for 2 days. Will dc heparin after MN. Hospitalist Physical - Physical exam Narrative exam: VITAL SIGNS: Reviewed. GENERAL: Awake HEAD: No signs of head trauma. EYES: Pupils are equal. Extraocular motions intact. MOUTH: Oropharynx is normal. NECK: No adenopathy, no JVD. CHEST: Chest with diminished breath sounds bilaterally. No wheezes, rales, or rhonchi. CARDIAC: normal S1 and S2, without murmurs, gallops, or rubs. ABDOMEN: Soft, non tender and non distended. No rebound or guarding, and no masses palpated. Bowel Sounds normal. MUSCULOSKELETAL: No edema : Left inguinal swelling NEUROLOGIC EXAM: Alert and oriented x3. No focal neurologic deficits SKIN: No obvious lesions - Constitutional Vitals: Temp Pulse Resp BP Pulse Ox 97.6 F 80 18 124/53 100 07/10/20 07:24 07/10/20 08:00 07/10/20 08:00 07/10/20 07:24 07/10/20 08:06 Results - Labs CBC & Chem 7: 07/10/20 05:55 07/10/20 05:55 Labs: Laboratory Last Values WBC 8.7 K/mm3 (4.5-11.0) 07/06/20 19:14 RBC 3.80 M/mm3 (3.65-5.03) 07/06/20 19:14 Hgb 11.1 gm/dl (11.8-15.2) L 07/10/20 05:55 Hct 35.1 % (35.5-45.6) L 07/10/20 05:55 MCV 93 fl (84-94) 07/06/20 19:14 MCH 31 pg (28-32) 07/06/20 19:14 MCHC 34 % (32-34) 07/06/20 19:14 RDW 14.1 % (13.2-15.2) 07/06/20 19:14 Plt Count 212 K/mm3 (140-440) 07/10/20 05:55 Lymph % (Auto) 10.7 % (13.4-35.0) L 07/06/20 19:14 Saline % (Auto) 9.9 % (0.0-7.3) H 07/06/20 19:14 Eos % (Auto) 3.3 % (0.0-4.3) 07/06/20 19:14 Baso % (Auto) 2.0 % (0.0-1.8) H 07/06/20 19:14 Lymph # (Auto) 0.9 K/mm3 (1.2-5.4) L 07/06/20 19:14 Saline # (Auto) 0.9 K/mm3 (0.0-0.8) H 07/06/20 19:14 Eos # (Auto) 0.3 K/mm3 (0.0-0.4) 07/06/20 19:14 Baso # (Auto) 0.2 K/mm3 (0.0-0.1) H 07/06/20 19:14 Seg Neutrophils % 74.1 % (40.0-70.0) H 07/06/20 19:14 Seg Neutrophils # 6.5 K/mm3 (1.8-7.7) 07/06/20 19:14 PT 15.7 Sec. (12.2-14.9) H 07/08/20 14:09 INR 1.27 (0.87-1.13) H 07/08/20 14:09 APTT 51.1 Sec. (24.2-36.6) H 07/08/20 14:09 Heparin Anti-Xa Level 0.55 U.I./ml (0.3-0.7) 07/09/20 04:48 Sodium 135 mmol/L (137-145) L 07/10/20 05:55 Potassium 5.4 mmol/L (3.6-5.0) H 07/10/20 05:55 Chloride 96.7 mmol/L (98-107) L 07/10/20 05:55 Carbon Dioxide 27 mmol/L (22-30) 07/10/20 05:55 Anion Gap 17 mmol/L 07/10/20 05:55 BUN 40 mg/dL (9-20) H 07/10/20 05:55 Creatinine 6.4 mg/dL (0.8-1.3) H 07/10/20 05:55 Estimated GFR 11 ml/min 07/10/20 05:55 BUN/Creatinine Ratio 6 % 07/10/20 05:55 Glucose 85 mg/dL (75-100) 07/10/20 05:55 POC Glucose 55 mg/dL (70-105) L 07/10/20 05:16 Lactic Acid 1.80 mmol/L (0.7-2.0) 07/05/20 20:43 Calcium 8.6 mg/dL (8.4-10.2) 07/10/20 05:55 Magnesium 2.00 mg/dL (1.7-2.3) 07/07/20 05:01 Total Bilirubin 0.40 mg/dL (0.1-1.2) 07/05/20 21:23 AST 25 units/L (5-40) 07/05/20 21:23 ALT 14 units/L (7-56) 07/05/20 21:23 Alkaline Phosphatase 97 units/L (35-129) 07/05/20 21:23 Total Protein 8.1 g/dL (6.3-8.2) 07/05/20 21: Albumin 4.1 g/dL (3.9-5) 07/05/20 21: Albumin/Globulin Ratio 1.0 % 07/05/20 21:23 Urine Color Yellow (Yellow) 07/06/20 04:58 Urine Turbidity Cloudy (Clear) 07/06/20 04:58 Urine pH 5.0 (5.0-7.0) 07/06/20 04:58 Ur Specific [place] 1.009 (1.003-1.030) 07/06/20 04:58 Urine Protein 30 mg/dl mg/dL (Negative) 07/06/20 04:58 Urine Glucose (UA) Neg mg/dL (Negative) 07/06/20 04:58 Urine Ketones Neg mg/dL (Negative) 07/06/20 04:58 Urine Blood Sm (Negative) 07/06/20 04:58 Urine Nitrite Neg (Negative) 07/06/20 04:58 Urine Bilirubin Neg (Negative) 07/06/20 04:58 Urine Urobilinogen < 2.0 mg/dL (<2.0) 07/06/20 04:58 Ur Leukocyte Esterase Lg (Negative) 07/06/20 04:58 Urine WBC (Auto) > 182.0 /HPF (0.0-6.0) H 07/06/20 04:58 Urine RBC (Auto) 16.0 /HPF (0.0-6.0) 07/06/20 04:58 U Epithel Cells (Auto) 3.0 /HPF (0-13.0) 07/06/20 04:58 Urine Bacteria (Auto) 3+ /HPF (Negative) 07/06/20 04:58 Urine WBC Clumps 3+ /HPF 07/06/20 04:58 Urine Mucus Few /HPF 07/06/20 04:58 Urine Sperm 1+ /HPF (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) 07/06/20 04:58 Hepatitis A IgM Ab Non-reactive (NonReactive) 07/06/20 10:40 Hep Bs Antigen Non-reactive (Negative) 07/06/20 10:40 Hep B Core IgM Ab Non-reactive (NonReactive) 07/06/20 10:40 Hepatitis C Antibody Non-reactive (NonReactive) 07/06/20 10:40 Goodman/IV: Voiding Method Urinal Active Medications - Current Medications Current Medications: Generic Name Dose Route Start Last Admin Trade Name Freq PRN Reason Stop Dose Admin Acetaminophen 650 mg 07/05/20 23:20 Acetaminophen 325 Mg Tab PO Q4H PRN Pain MILD(1-3)/Fever >100.5/CHANG Albuterol 2.5 mg 07/07/20 02:02 Albuterol 2.5 Mg/3 Ml Nebu IH Q4HRT PRN Shortness Of Breath Albuterol/Ipratropium 1 ampul 07/07/20 08:00 07/10/20 08:01 Ipratropium/Albuterol Sulfate 3 Ml Ampul.Neb IH 1 ampul TIDRT ARSLAN Administration Carvedilol 3.125 mg 07/07/20 10:00 07/09/20 22:13 Carvedilol 3.125 Mg Tab PO 3.125 mg BID ARSLAN Administration Dextrose 50 ml 07/05/20 23:23 07/10/20 06:21 Dextrose 50% In Water (25gm) 50 Ml Syringe IV 50 ml Q30MIN PRN Administration Hypoglycemia Protocol Docusate Sodium 100 mg 07/06/20 11:00 07/09/20 22:13 Docusate Sodium 100 Mg Cap PO 100 mg BID ARSLAN Administration Famotidine 20 mg 07/06/20 10:00 07/09/20 12:00 Famotidine 20 Mg/2 Ml Inj IV Not Given DAILY ARSLAN Guaifenesin 200 mg 07/09/20 10:00 07/09/20 22:15 Guaifenesin 100 Mg/5 Ml Oral Liqd PO 200 mg Q4H PRN Administration Cough Hydromorphone HCl 0.5 mg 07/10/20 08:46 Hydromorphone 1 Mg/1 Ml Inj IV 07/10/20 23:00 Q10MIN PRN Pain , Severe (7-10) Levofloxacin/Dextrose 250 mg in 50 mls @ 50 mls/hr 07/06/20 11:00 07/08/20 11:42 Levaquin 250mg/50ml IV 50 mls/hr Q48H ARSLAN Administration Sodium Chloride 100 mls @ 999 mls/hr 07/08/20 15:05 Nacl 0.9% IV WENDI PRN Hypotension Insulin Human Lispro 0 unit 07/06/20 00:00 07/10/20 06:20 Insulin Lispro 100 Unit/Ml SUB-Q Not Given Q6HR ARSLAN Protocol Morphine Sulfate 2 mg 07/05/20 23:20 07/09/20 22:09 Morphine 2 Mg/1 Ml Inj IV 2 mg Q4H PRN Administration Pain, Moderate (4-6) Ondansetron HCl 4 mg 07/05/20 23:20 Ondansetron 4 Mg/2 Ml Inj IV Q8H PRN Nausea And Vomiting Polyethylene Glycol 17 gm 07/06/20 11:00 07/09/20 15:34 Polyethylene Glycol 3350 17 Gm Powder PO 17 gm QDAY ARSLAN Administration Sodium Chloride 10 ml 07/06/20 10:00 07/09/20 22:15 Sodium Chloride 0.9% 10 Ml Flush Syringe IV 10 ml BID ARSLAN Administration Sodium Chloride 10 ml 07/05/20 23:20 Sodium Chloride 0.9% 10 Ml Flush Syringe IV PRN PRN LINE FLUSH Nutrition/Malnutrition Assess - Dietary Evaluation Nutrition/Malnutrition Findings: Nutrition Notes Start: 07/06/20 1 1:44 Freq: Status: Active Protocol: Document 07/09/20 15:54 CW (Rec: 07/09/20 15:57 CW [id number]) Nutrition Notes Need for Assessment generated from: MD Order,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 Pt not in room at time of visit at 1215, likely at HD. Pt did not answer phone at 1545 today. Burn Absent Trauma Absent Current % PO Good (75-100%) Nutrition Intervention Follow-Up By: 07/10/20 Additional Comments F/U for diet education needs
--- NOTE | 2020-07-10 11:11 | Discharge Summary ---
Providers - Providers Date of Admission: 07/05/20 23:02 Date of discharge: 07/11/20 Attending physician: MONIK GUZMAN 07/05/20 23:02 Consult to Physician [CONS] Routine Comment: Consulting Provider: CHASE LEBRON Physician Instructions: Reason For Exam: hernia 07/05/20 23:20 Consult to Physician [CONS] Routine Comment: Consulting Provider: MACHO POLLACK Physician Instructions: Reason For Exam: esrd 07/05/20 23:23 Consult to Dietitian/Nutrition [CONS] Routine Physician Instructions: Reason For Exam: Reason for Consult: Diet education 07/06/20 08:14 Consult to Physician [CONS] Routine Comment: Consulting Provider: FOX MENDOZA Physician Instructions: Reason For Exam: VTs Primary care physician: FLASK MAKER Hospitalization Condition: Critical Hospital course: 69-year-old male patient with history of end-stage renal disease on dialysis and umbilical hernia presents to the emergency department with complaints of nontraumatic left inguinal pain/swelling for the 4 days. He also endorses right testicular pain and painful urination. Denies fever, chills, nausea, vomiting, diarrhea, constipation, urinary retention, hematuria, penile discharge, testicular swelling. Denies other complaints at this time. In the emergency room CT scan of the abdomen shows medium sized left inguinal hernia containing a loop of distal colon without evidence of obstruction mild associated mesenteric fat necrosis is present. Cholelithiasis. Medium sized fat-containing periumbilical hernia with mild fat necrosis. Patient admitted for further evaluation and surgery was consulted. 07/06. No new complaints this AM. Had 22 beats of VT. He has AICD. Cardiology has been consulted for preop assessment prior to possible hernia repair. Continue to hold xarelto for now. 07/07. States his groin pain is bearable this AM. He wants to have procedure during this admission. Started him on low dose coreg. 07/08. Cardiology evaluation appreciated. Plan for stress test tomorrow. 07/09. Stress test is negative for any reversible ischemia. Cleared for surgery. Started on heparin drip yesterday as he was off xarelto for 2 days. Will dc heparin after MN. 07/10. Patient had repair of incarcerated umbilical hernia and tolerated procedure well. Plan to hold anticoagulation for 48 hours. We will continue hemodialysis as scheduled 07/11. Patient remained stable. He will be discharged to follow-up with surgery in the office. Also need to follow-up with cardiology for his cardiac problems. He agrees with treatment plan. Final Discharge Diagnosis (Prints w/discharge instructions): Incarcerated umbilical hernia Time spent for discharge: 40 minutes Core Measure Documentation - Palliative Care Palliative Care/ Comfort Measures: Not Applicable - Core Measures Any of the following diagnoses?: none Exam - Physical Exam Narrative exam: VITAL SIGNS: Reviewed. GENERAL: Awake HEAD: No signs of head trauma. EYES: Pupils are equal. Extraocular motions intact. MOUTH: Oropharynx is normal. NECK: No adenopathy, no JVD. CHEST: Chest with diminished breath sounds bilaterally. No wheezes, rales, or rhonchi. CARDIAC: normal S1 and S2, without murmurs, gallops, or rubs. ABDOMEN: Soft, non tender and non distended. No rebound or guarding, and no masses palpated. Bowel Sounds normal. MUSCULOSKELETAL: No edema : Left inguinal swelling NEUROLOGIC EXAM: Alert and oriented x3. No focal neurologic deficits SKIN: No obvious lesions - Constitutional Vitals: Temp Pulse Resp BP Pulse Ox 97.6 F 80 18 124/53 100 07/10/20 07:24 07/10/20 08:00 07/10/20 08:00 07/10/20 07:24 07/10/20 08:06 Plan Diet: low fat, low cholesterol, low salt Additional Instructions: Pain medications as needed. Follow-up with surgery in 1 to 2 weeks. Follow-up with PCP 1 to 2 weeks Follow up with: PRIMARY CARE, [Primary Care Provider] - 7 Days CHASE LEBRON DO [Staff Physician] - 7 Days Prescriptions: carvediloL [Coreg] 3.125 mg PO BID #60 tablet polyethylene glycoL 3350 [Miralax 3350] 17 gm PO QDAY PRN #10 powd.pack PRN Reason: Constipation HYDROcodone/APAP 5-325 [[place] 5-325 mg TAB] 1 each PO Q6HR PRN 3 Days #14 tablet PRN Reason: Pain Rivaroxaban [Xarelto] 15 mg PO QDAY #30 tablet
[2020-07-10] MEDS: carvediloL 3.125 MG TAB PO SCH ×2 (12:00→21:21)
--- NOTE | 2020-07-10 12:23 | Progress Note ---
Subjective Date of service: 07/10/20 Principal diagnosis: Incarcerated inguinal hernia, Perm AF, ESRD, s/p PPM, ESRD, NSVT Interval history: Impression: * End stage renal disease * Incarcerated inguinal hernia * Urinary tract infection * Atrial fibrillation on chronic anticoagulation * Anemia secondary to ESRD * Secondary hyperparathyroidism Plan:y * Continue MWF schedule * UF as tolerated * Surgery recommendations for surgical repair noted * Cardiology following. * Abx per primary team * Diet per surgery * low k renal diet * Epogen TIW prn * ok to dc from renal standpoint Subjective Principal diagnosis: Incarcerated inguinal hernia, Perm AF, ESRD, s/p PPM, ESRD, NSVT Interval history: Patient has no complaints today. Reports pain related to inguinal hernia. Tolerating po. Objective General appearance: well-developed EENT: ATNC Respiratory: Present: Clear to Ascultation Cardiology: regular, S1S2 Gastrointestinal: normal, no distended Integumentary: no rash, warm and dry Neurologic: no focal deficit, alert and oriented x3 Objective - Vital Signs Vital signs: Vital Signs - 12hr 07/10/20 07/10/20 07/10/20 03:23 07:24 08:00 Temperature 98.8 F 97.6 F Pulse Rate 72 76 Pulse Rate [ 80 Anterior Bilateral Throughout] Respiratory 14 18 Rate Respiratory 18 Rate [Anterior Bilateral Throughout] Blood Pressure 125/68 124/53 O2 Sat by Pulse 92 98 Oximetry 07/10/20 08:06 Temperature Pulse Rate Pulse Rate [ Anterior Bilateral Throughout] Respiratory Rate Respiratory Rate [Anterior Bilateral Throughout] Blood Pressure O2 Sat by Pulse 100 Oximetry - Lab 07/10/20 05:55 07/10/20 05:55 Most recent lab results Calcium 8.6 mg/dL (8.4-10.2) 07/10/20 05:55 Magnesium 2.00 mg/dL (1.7-2.3) 07/07/20 05:01 Medications & Allergies - Medications Allergies/Adverse Reactions: Allergies nifedipine [From Procardia] Allergy (Verified 07/05/20 15:30) muscle spasms Home Medications: Home Medications Medication Instructions Recorded Confirmed Last Taken Type Furosemide [Lasix TAB] 80 mg PO DAILY 02/12/18 04/27/18 04/25/18 09:00 History Metformin HCl 500 mg PO DAILY 02/12/18 04/27/18 04/25/18 09:00 History Potassium Chloride [Klor-Con M20] 20 meq PO DAILY 02/12/18 04/27/18 04/25/18 09:00 History Rivaroxaban [Xarelto] 20 mg PO DAILY 02/12/18 04/27/18 04/25/18 09:00 History Sitagliptin Phosphate [Januvia] 100 mg PO DAILY 02/12/18 04/27/18 04/25/18 09:00 History allopurinoL [Allopurinol] 100 mg PO DAILY 02/12/18 04/27/18 04/25/18 09:00 History lisinopriL [Zestril TAB] 10 mg PO DAILY 02/12/18 04/27/18 04/25/18 09:00 History metOLazone [Metolazone] 5 mg PO DAILY 02/12/18 04/27/18 04/25/18 09:00 History HYDROcodone/APAP 5-325 [[place] 1 each PO Q6HR PRN 3 Days #14 07/10/20 Unknown Rx 5-325 mg TAB] tablet carvediloL [Coreg] 3.125 mg PO BID #60 tablet 07/10/20 Unknown Rx polyethylene glycoL 3350 [Miralax 17 gm PO QDAY PRN #10 powd.pack 07/10/20 Unknown Rx 3350] Active Medications: Generic Name Dose Route Start Last Admin Trade Name Freq PRN Reason Stop Dose Admin Acetaminophen 650 mg 07/05/20 23:20 Acetaminophen 325 Mg Tab PO Q4H PRN Pain MILD(1-3)/Fever >100.5/CHANG Albuterol 2.5 mg 07/07/20 02:02 Albuterol 2.5 Mg/3 Ml Nebu IH Q4HRT PRN Shortness Of Breath Albuterol/Ipratropium 1 ampul 07/07/20 08:00 07/10/20 08:01 Ipratropium/Albuterol Sulfate 3 Ml Ampul.Neb IH 1 ampul TIDRT ARSLAN Administration Carvedilol 3.125 mg 07/07/20 10:00 07/09/20 22:13 Carvedilol 3.125 Mg Tab PO 3.125 mg BID ARSLAN Administration Dextrose 50 ml 07/05/20 23:23 07/10/20 06:21 Dextrose 50% In Water (25gm) 50 Ml Syringe IV 50 ml Q30MIN PRN Administration Hypoglycemia Protocol Docusate Sodium 100 mg 07/06/20 11:00 07/09/20 22:13 Docusate Sodium 100 Mg Cap PO 100 mg BID ARSLAN Administration Famotidine 20 mg 07/06/20 10:00 07/09/20 12:00 Famotidine 20 Mg/2 Ml Inj IV Not Given DAILY ARSLAN Guaifenesin 200 mg 07/09/20 10:00 07/09/20 22:15 Guaifenesin 100 Mg/5 Ml Oral Liqd PO 200 mg Q4H PRN Administration Cough Hydromorphone HCl 0.5 mg 07/10/20 08:46 Hydromorphone 1 Mg/1 Ml Inj IV 07/10/20 23:00 Q10MIN PRN Pain , Severe (7-10) Levofloxacin/Dextrose 250 mg in 50 mls @ 50 mls/hr 07/06/20 11:00 07/08/20 11:42 Levaquin 250mg/50ml IV 07/18/20 11:59 50 mls/hr Q48H ARSLAN Administration Sodium Chloride 100 mls @ 999 mls/hr 07/08/20 15:05 Nacl 0.9% IV WENDI PRN Hypotension Insulin Human Lispro 0 unit 07/06/20 00:00 07/10/20 06:20 Insulin Lispro 100 Unit/Ml SUB-Q Not Given Q6HR [facility] Protocol Morphine Sulfate 2 mg 07/05/20 23:20 07/09/20 22:09 Morphine 2 Mg/1 Ml Inj IV 2 mg Q4H PRN Administration Pain, Moderate (4-6) Ondansetron HCl 4 mg 07/05/20 23:20 Ondansetron 4 Mg/2 Ml Inj IV Q8H PRN Nausea And Vomiting Polyethylene Glycol 17 gm 07/06/20 11:00 07/09/20 15:34 Polyethylene Glycol 3350 17 Gm Powder PO 17 gm QDAY ARSLAN Administration Sodium Chloride 10 ml 07/06/20 10:00 07/09/20 22:15 Sodium Chloride 0.9% 10 Ml Flush Syringe IV 10 ml BID ARSLAN Administration Sodium Chloride 10 ml 07/05/20 23:20 Sodium Chloride 0.9% 10 Ml Flush Syringe IV PRN PRN LINE FLUSH
--- NOTE | 2020-07-10 13:10 | Anesthesia Day of Surgery ---
Anesthesia Day of Surgery - Day of Surgery Patient Examined: Yes Patient H&P Reviewed: Yes Patient is NPO: Yes Cardiac Clearance: Yes
[2020-07-10] MEDS ORDERED: ONDANSETRON 4 MG/2 ML INJ IV PRN (13:16)
[2020-07-10] MEDS ORDERED: fentaNYL 100 MCG/2 ML INJ IV PRN (13:16)
[2020-07-10] MEDS ORDERED: SODIUM CHLORIDE 0.9% IRRIG SOLN 2000 ML IR ONE (13:59)
[2020-07-10] MEDS ORDERED: ONDANSETRON 4 MG/2 ML INJ ONE (14:16)
[2020-07-10] MEDS ORDERED: dexAMETHasone 20 MG/5 ML VIAL ONE (14:16)
[2020-07-10] MEDS ORDERED: NEOSTIGMINE 10MG/10 ML INJ MDV ONE (14:17)
[2020-07-10] MEDS ORDERED: GLYCOPYRROLATE 0.4 MG/2 ML INJ ONE (14:17)
[2020-07-10] MEDS ORDERED: BUPIVACAINE/PF (0.25%) 2.5 MG/ML 30 ML VIAL INFILTRATI ONE (14:26)
[2020-07-10] MEDS ORDERED: oxyCODONE /ACETAMINOPHEN 5-325MG TAB PO PRN (15:02)
--- NOTE | 2020-07-10 15:06 | Post Operative Note ---
Pre-op diagnosis: incarcerated ventral hernia and left inguinal hernia Post-op diagnosis: same Findings: 1. 2cm midline supraumbilical ventral hernia containing a large amount of omentum and preperitoneal fat 2. Large indirect left inguinal hernia containing incarcerated colon and large cord lipoma 3. Incidentally noted small indirect right inguinal hernia Procedure: robotic assisted lysis of adhesions, ventral and left inguinal hernia repair with mesh Anesthesia: CR, local Surgeon: CHASE LEBRON Screed Operator: NAYELY ARANDA Estimated blood loss: minimal Pathology: list (ventral hernia contents) Specimen disposition: to lab Condition: stable Disposition: PACU
[2020-07-10] MEDS: HYDROmorphone 1 MG/1 ML INJ IV PRN ×2 (15:52→16:02)
[2020-07-11] MEDS: INSULIN LISPRO 100 UNIT/ML SUB-Q SCH ×2 (01:00→12:00)
[2020-07-11 06:07] LABS: Hematocrit 37.3 % (35.5-45.6); Hemoglobin 11.9 gm/dl (11.8-15.2); Mean Corpuscular HGB Conc 32 % (32-34); Mean Corpuscular Volume 94 fl (84-94); Platelet Count 191 K/mm3 (140-440); Red Blood Count 3.95 M/mm3 (3.65-5.03); Red Cell Distribution Width 14.5 % (13.2-15.2)
[2020-07-11 07:08] LABS: BUN/Creatinine Ratio TNR; Blood Urea Nitrogen TNR mg/dL (9-20); Calcium TNR mg/dL (8.4-10.2)
[2020-07-11 07:09] LABS: Hemolysis Index TNR
--- NOTE | 2020-07-11 09:14 | Progress Note ---
Assessment and Plan Assessment and plan: #Incarcerated inguinal hernia Status post repair of incarcerated umbilical hernia Surgery on board #Nonsustained V. tach has a history of systolic heart failure and has an AICD Cardiology evaluation appreciated. Stress test negative Continue Coreg #Hypertension Continue medications #Atrial fibrillation Resume Xarelto on 07/12 #COPD Continue oxygen #Congestive heart failure Has AICD Has not seen a tool dispatcher in many years Continue home medications Cardiology on board Coreg #ESRD HD as scheduled #Diabetes mellitus Insulin protocol #Acute cystitis Levaquin #DVT prophylaxis Resume Xarelto on 07/12 History Interval history: 69-year-old male patient with history of end-stage renal disease on dialysis and umbilical hernia presents to the emergency department with complaints of nontraumatic left inguinal pain/swelling for the 4 days. He also endorses right testicular pain and painful urination. Denies fever, chills, nausea, vomiting, diarrhea, constipation, urinary retention, hematuria, penile discharge, testicular swelling. Denies other complaints at this time. In the emergency room CT scan of the abdomen shows medium sized left inguinal hernia containing a loop of distal colon without evidence of obstruction mild associated mesenteric fat necrosis is present. Cholelithiasis. Medium sized fat-containing periumbilical hernia with mild fat necrosis. Patient admitted for further evaluation and surgery was consulted. 07/06. No new complaints this AM. Had 22 beats of VT. He has AICD. Cardiology has been consulted for preop assessment prior to possible hernia repair. Continue to hold xarelto for now. 07/07. States his groin pain is bearable this AM. He wants to have procedure during this admission. Started him on low dose coreg. 07/08. Cardiology evaluation appreciated. Plan for stress test tomorrow. 07/09. Stress test is negative for any reversible ischemia. Cleared for surgery. Started on heparin drip yesterday as he was off xarelto for 2 days. Will dc heparin after MN. 07/10. Heparin discontinued. Patient had left hernia repair for incarcerated hernia. Tolerated procedure well. Continue to hold anticoagulants for 48 hours as per surgery. Possible discharge tomorrow Hospitalist Physical - Physical exam Narrative exam: VITAL SIGNS: Reviewed. GENERAL: Awake HEAD: No signs of head trauma. EYES: Pupils are equal. Extraocular motions intact. MOUTH: Oropharynx is normal. NECK: No adenopathy, no JVD. CHEST: Chest with diminished breath sounds bilaterally. No wheezes, rales, or rhonchi. CARDIAC: normal S1 and S2, without murmurs, gallops, or rubs. ABDOMEN: Soft, non tender and non distended. No rebound or guarding, and no masses palpated. Bowel Sounds normal. MUSCULOSKELETAL: No edema : Left inguinal swelling NEUROLOGIC EXAM: Alert and oriented x3. No focal neurologic deficits SKIN: No obvious lesions - Constitutional Vitals: Temp Pulse Resp BP Pulse Ox 97.7 F 73 16 113/63 97 07/11/20 03:20 07/11/20 03:20 07/11/20 03:20 07/11/20 03:20 07/11/20 03:20 Results - Labs CBC & Chem 7: 07/11/20 04:53 07/11/20 04:53 Labs: Laboratory Last Values WBC 11.6 K/mm3 (4.5-11.0) H 07/11/20 04:53 RBC 3.95 M/mm3 (3.65-5.03) 07/11/20 04:53 Hgb 11.9 gm/dl (11.8-15.2) 07/11/20 04:53 Hct 37.3 % (35.5-45.6) 07/11/20 04:53 MCV 94 fl (84-94) 07/11/20 04:53 MCH 30 pg (28-32) 07/11/20 04:53 MCHC 32 % (32-34) 07/11/20 04:53 RDW 14.5 % (13.2-15.2) 07/11/20 04:53 Plt Count 191 K/mm3 (140-440) 07/11/20 04:53 Lymph % (Auto) 10.7 % (13.4-35.0) L 07/06/20 19:14 [place] % (Auto) 9.9 % (0.0-7.3) H 07/06/20 19:14 Eos % (Auto) 3.3 % (0.0-4.3) 07/06/20 19:14 Baso % (Auto) 2.0 % (0.0-1.8) H 07/06/20 19:14 Lymph # (Auto) 0.9 K/mm3 (1.2-5.4) L 07/06/20 19:14 [place] # (Auto) 0.9 K/mm3 (0.0-0.8) H 07/06/20 19:14 Eos # (Auto) 0.3 K/mm3 (0.0-0.4) 07/06/20 19:14 Baso # (Auto) 0.2 K/mm3 (0.0-0.1) H 07/06/20 19:14 Seg Neutrophils % 74.1 % (40.0-70.0) H 07/06/20 19:14 Seg Neutrophils # 6.5 K/mm3 (1.8-7.7) 07/06/20 19:14 PT 15.7 Sec. (12.2-14.9) H 07/08/20 14:09 INR 1.27 (0.87-1.13) H 07/08/20 14:09 APTT 51.1 Sec. (24.2-36.6) H 07/08/20 14:09 Heparin Anti-Xa Level 0.55 U.I./ml (0.3-0.7) 07/09/20 04:48 Sodium TNR 07/11/20 04:53 Potassium TNR 07/11/20 04:53 Chloride TNR 07/11/20 04:53 Carbon Dioxide TNR 07/11/20 04:53 Anion Gap TNR 07/11/20 04:53 BUN TNR 07/11/20 04:53 Creatinine TNR 07/11/20 04:53 Estimated GFR TNR 07/11/20 04:53 BUN/Creatinine Ratio TNR 07/11/20 04:53 Glucose TNR 07/11/20 04:53 POC Glucose 102 mg/dL (70-105) 07/11/20 05:15 Lactic Acid 1.80 mmol/L (0.7-2.0) 07/05/20 20:43 Calcium TNR 07/11/20 04:53 Magnesium 2.00 mg/dL (1.7-2.3) 07/07/20 05:01 Total Bilirubin 0.40 mg/dL (0.1-1.2) 07/05/20 21:23 AST 25 units/L (5-40) 07/05/20 21:23 ALT 14 units/L (7-56) 07/05/20 21:23 Alkaline Phosphatase 97 units/L (35-129) 07/05/20 21:23 Total Protein 8.1 g/dL (6.3-8.2) 07/05/20 21: Albumin 4.1 g/dL (3.9-5) 07/05/20 21:23 Albumin/Globulin Ratio 1.0 % 07/05/20 21:23 Urine Color Yellow (Yellow) 07/06/20 04:58 Urine Turbidity Cloudy (Clear) 07/06/20 04:58 Urine pH 5.0 (5.0-7.0) 07/06/20 04:58 Ur Specific [place] 1.009 (1.003-1.030) 07/06/20 04:58 Urine Protein 30 mg/dl mg/dL (Negative) 07/06/20 04:58 Urine Glucose (UA) Neg mg/dL (Negative) 07/06/20 04:58 Urine Ketones Neg mg/dL (Negative) 07/06/20 04:58 Urine Blood Sm (Negative) 07/06/20 04:58 Urine Nitrite Neg (Negative) 07/06/20 04:58 Urine Bilirubin Neg (Negative) 07/06/20 04:58 Urine Urobilinogen < 2.0 mg/dL (<2.0) 07/06/20 04:58 Ur Leukocyte Esterase Lg (Negative) 07/06/20 04:58 Urine WBC (Auto) > 182.0 /HPF (0.0-6.0) H 07/06/20 04:58 Urine RBC (Auto) 16.0 /HPF (0.0-6.0) 07/06/20 04:58 U Epithel Cells (Auto) 3.0 /HPF (0-13.0) 07/06/20 04:58 Urine Bacteria (Auto) 3+ /HPF (Negative) 07/06/20 04:58 Urine WBC Clumps 3+ /HPF 07/06/20 04:58 Urine Mucus Few /HPF 07/06/20 04:58 Urine Sperm 1+ /HPF (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) 07/06/20 04:58 Hepatitis A IgM Ab Non-reactive (NonReactive) 07/06/20 10:40 Hep Bs Antigen Non-reactive (Negative) 07/06/20 10:40 Hep B Core IgM Ab Non-reactive (NonReactive) 07/06/20 10:40 Hepatitis C Antibody Non-reactive (NonReactive) 07/06/20 10:40 Goodman/IV: Voiding Method Urinal Active Medications - Current Medications Current Medications: Generic Name Dose Route Start Last Admin Trade Name Freq PRN Reason Stop Dose Admin Acetaminophen 650 mg 07/05/20 23:20 Acetaminophen 325 Mg Tab PO Q4H PRN Pain MILD(1-3)/Fever >100.5/CHANG Albuterol 2.5 mg 07/07/20 02:02 Albuterol 2.5 Mg/3 Ml Nebu IH Q4HRT PRN Shortness Of Breath Albuterol/Ipratropium 1 ampul 07/07/20 08:00 07/10/20 20:50 Ipratropium/Albuterol Sulfate 3 Ml Ampul.Neb IH 1 ampul TIDRT ARSLAN Administration Carvedilol 3.125 mg 07/07/20 10:00 07/10/20 21:21 Carvedilol 3.125 Mg Tab PO 3.125 mg BID ARSLAN Administration Dextrose 50 ml 07/05/20 23:23 07/10/20 06:21 Dextrose 50% In Water (25gm) 50 Ml Syringe IV 50 ml Q30MIN PRN Administration Hypoglycemia Protocol Docusate Sodium 100 mg 07/06/20 11:00 07/10/20 21:21 Docusate Sodium 100 Mg Cap PO 100 mg BID ARSLAN Administration Famotidine 20 mg 07/06/20 10:00 07/10/20 10:00 Famotidine 20 Mg/2 Ml Inj IV Not Given DAILY ARSLAN Guaifenesin 200 mg 07/09/20 10:00 07/09/20 22:15 Guaifenesin 100 Mg/5 Ml Oral Liqd PO 200 mg Q4H PRN Administration Cough Levofloxacin/Dextrose 250 mg in 50 mls @ 50 mls/hr 07/06/20 11:00 07/10/20 17:36 Levaquin 250mg/50ml IV 07/18/20 11:59 50 mls/hr Q48H ARSLAN Administration Sodium Chloride 100 mls @ 999 mls/hr 07/08/20 15:05 Nacl 0.9% IV WENDI PRN Hypotension Insulin Human Lispro 0 unit 07/06/20 00:00 07/11/20 01:00 Insulin Lispro 100 Unit/Ml SUB-Q Not Given Q6HR [facility] Protocol Morphine Sulfate 2 mg 07/05/20 23:20 07/09/20 22:09 Morphine 2 Mg/1 Ml Inj IV 2 mg Q4H PRN Administration Pain , Severe (7-10) Ondansetron HCl 4 mg 07/05/20 23:20 Ondansetron 4 Mg/2 Ml Inj IV Q8H PRN Nausea And Vomiting Oxycodone/Acetaminophen 2 tab 07/10/20 15:02 Oxycodone /Acetaminophen 5-325mg Tab PO Q6H PRN Pain, Moderate (4-6) Polyethylene Glycol 17 gm 07/06/20 11:00 07/10/20 10:00 Polyethylene Glycol 3350 17 Gm Powder PO Not Given QDAY [facility] Sodium Chloride 10 ml 07/06/20 10:00 07/10/20 21:21 Sodium Chloride 0.9% 10 Ml Flush Syringe IV 10 ml BID ARSLAN Administration Sodium Chloride 10 ml 07/05/20 23:20 Sodium Chloride 0.9% 10 Ml Flush Syringe IV PRN PRN LINE FLUSH Nutrition/Malnutrition Assess - Dietary Evaluation Nutrition/Malnutrition Findings: Nutrition Notes Start: 07/06/20 11:44 Freq: Status: Active Protocol: Document 07/09/20 15:54 CW (Rec: 07/09/20 15:57 CW [id number]) Nutrition Notes Need for Assessment generated from: 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 Pt not in room at time of visit at 1215, likely at HD. Pt did not answer phone at 1545 today. Burn Absent Trauma Absent Current % PO Good (75-100%) Nutrition Intervention Follow-Up By: 07/11/20 Additional Comments F/U for diet education needs
[2020-07-11] MEDS: IPRATROPIUM/ALBUTEROL SULFATE 3 ML AMPUL.NEB IH SCH ×2 (09:22→14:41)
[2020-07-11] MEDS ORDERED: FUROSEMIDE 40 MG TAB PO SCH (10:00)
--- NOTE | 2020-07-11 10:58 | Progress Note ---
Assessment and Plan Cardiology is consulted for Ventricular antiarrhythmia. Pt had 22 beat run of VT. Surgical risk assessment requested. Pt for sx this am. PE deferred. Tele reviewed: 65. No events overnight. Ventricular Arrhythmia Continue Coreg 3.125mg BID. Continue to monitor on telemetry Hx of Atrial Fibrillation Anticoagulated on Xarelto a home. Resume AC postop per surgeon recs. PPM in situ PPM was interrogated on 08/2019. [employer] AV Demand PPM functioning normally. PPM Interrogation (REVIEW) Cardiomyopathy Pt reports having cardiomyopathy, but does not currently follow with cardiology. Lyn historian. Echo reviewed (07/06/20): EF 60-65%. Mild LVH. ESRD on HD Nephrology is following. Pt for HD today. Optimize electolytes. Volume optimization per nephrology Incarcerated Hernia Postop DVT Prophylaxis AC held postop. Pt is in stable cardiac stataus. Nothing further to add from cardiology s [facility]. Pt should f/u in our [place] office on 07/18/2020 at 1:30pm for device interrogation f/u with Dr Brooklynn Myers, Cardiology at our [place] office on 08/03/2020 at 1:00. This pt was seen in conjunction with Dr Conner who agrees with this assessment and plan of care. - Patient Problems (1) Incarcerated inguinal hernia Current Visit: Yes Status: Acute (2) Ventricular arrhythmia Current Visit: Yes Status: Acute (3) Abdominal pain Current Visit: Yes Status: Acute Qualifiers: Abdominal location: lower abdomen, unspecified Qualified Code(s): R10.30 - Lower abdominal pain, unspecified (4) Cardiac pacemaker in situ Current Visit: Yes Status: Chronic (5) Diabetes Current Visit: Yes Status: Chronic (6) ESRD (end stage renal disease) Current Visit: Yes Status: Chronic (7) Hypertension Current Visit: Yes Status: Chronic Qualifiers: Hypertension type: essential hypertension Qualified Code(s): I10 - Essential (primary) hypertension (8) History of atrial fibrillation Current Visit: Yes Status: Chronic (9) DVT prophylaxis Current Visit: Yes Status: Acute Subjective Date of service: 07/11/20 Principal diagnosis: Incarcerated inguinal hernia, Perm AF, ESRD, s/p PPM, ESRD, NSVT Interval history: Pt resting comfortably in bed. No SOB or CP overnight. Tele reviewed: SR 76 with demand PPM. No events overnight. Objective Last Vital Signs Temp 97.7 F 07/11/20 03:20 Pulse 71 07/11/20 10:45 Resp 16 07/11/20 03:20 BP 108/67 07/11/20 10:45 Pulse Ox 97 07/11/20 03:20 - Physical Examination General: No Apparent Distress HEENT: Positive: EOMI, Normocephaly, Mucus Membranes Moist Neck: Positive: neck supple, trachea midline Cardiac: Positive: Reg Rate and Rhythm, S1/S2 Lungs: Positive: clear to auscultation, Normal Breath Sounds Neuro: Positive: Grossly Intact Abdomen: Positive: Soft, Tender (In the left lower quadrant) Skin: Negative: Rash, Wound Musculoskeletal: Normal Range of Motion Extremities: Present: upper extr. pulses, lower extr. pulses. Absent: edema - Labs and Meds CBC 07/11/20 Range/Units 04:53 WBC 11.6 H (4.5-11.0) K/mm3 RBC 3.95 (3.65-5.03) M/mm3 Hgb 11.9 (11.8-15.2) gm/dl Hct 37.3 (35.5-45.6) % Plt Count 191 (140-440) K/mm3 Comprehensive Metabolic Panel 07/11/20 Range/Units 04:53 Sodium TNR Potassium TNR Chloride TNR Carbon Dioxide TNR BUN TNR Creatinine TNR Glucose TNR Calcium TNR - Imaging and Cardiology EKG: report reviewed, image reviewed Echo: report reviewed (Echo reviewed (07/06/20): EF 60-65%. Mild LVH. )
[2020-07-11] MEDS ORDERED: FAMOTIDINE 20 MG TAB PO SCH (11:00)
--- NOTE | 2020-07-11 12:11 | Operative Report ---
Operative Report Operative Report: Date: 07/10/20 15:03 Pre-op diagnosis: incarcerated ventral hernia and left inguinal hernia Post-op diagnosis: same Findings: 1. 2cm midline supraumbilical ventral hernia containing a large amount of omentum and preperitoneal fat 2. Large indirect left inguinal hernia containing incarcerated colon and large cord lipoma 3. Incidentally noted small indirect right inguinal hernia Procedure: robotic assisted lysis of adhesions, ventral and left inguinal hernia repair with mesh Anesthesia: CR, local Surgeon: CHASE LEBRON Outside Salesperson: NAYEYL ARANDA Estimated blood loss: minimal Pathology: list (ventral hernia contents) Specimen disposition: to lab Condition: stable Disposition: PACU HPI and indication: Patient 69-year-old male with a past medical history of CAD, A. fib on anticoagulation, end-stage renal disease on hemodialysis, AICD who presented to the hospital with complaints of increased pain in his left groin secondary to a known inguinal hernia. CT scan of the abdomen and pelvis showed a incarcerated ventral hernia containing fat along with an incarcerated left inguinal hernia containing nonobstructed colon. The hernias were not able to be reduced however this was chronic. Patient was admitted to the hospital. He underwent cardiac work-up including a stress test which was negative and was deemed moderate risk for proposed hernia repair. All risk, benefits, alternatives to surgery were discussed with the patient questions answered. Consent was obtained for robotic assisted repair of ventral and left inguinal hernia, possible mesh, possible open. Procedure in detail: The patient was identified in the preoperative area and taken back to the operating room and placed on the operating room table in supine position. After anesthesia was induced, both arms were tucked with all bony prominences padded appropriately. A Goodman catheter was sterilely placed by the circulating nurse. The abdomen was then prepped and draped in usual sterile fashion and a timeout was performed. A jade incision was made in the left upper quadrant at Garcia's point through which a Veress needle was inserted. The Veress needle position was confirmed using the saline drop test and the abdomen insufflated to 15 mmHg without incident. A 5 mm incision was made in the right upper quadrant through which a 5 mm Optiview trocar was placed under direct visualization. The abdomen was inspected and there was no underlying injury to any of the abdominal structures. The Veress needle was identified and removed. The ventral hernia containing incarcerated omentum was visualized and could not be reduced with manual pressure. Left inguinal hernia was visualized containing a loop of colon. An incidentally noted small right inguinal hernia was also identified. A LUQ 8 mm trocar and 5 mm RLQ trocar was placed under direct visualization. The falciform ligament was ligated using a ligasure in order to place a 12 mm epigastric trocar. This trocar was placed under direct visualization. The 5mm RUQ trocar was replaced with an 8 mm robotic trocar. A fenestrated bipolar was placed in arm #2 and a monopolar scissor in arm #1. The surgeon was then transferred to the console. First I attempted to reduce to ventral hernia. Gentle external pressure along with attempts to reduce the contents of the ventral hernia were unsuccessful. The fascial defect was 1.5 cm and was extended by an addition 1 cm to try and reduce the contents of the hernia. The omentum was gently reduced. There was a large amount of preperitoneal fat contained with the hernia which was very difficult to reduce. Dissection of chronic adhesions from the preperitoneal fat to the hernia sac was performed which did prolong procedural time. It took approximately 45 minutes to completely reduce the contents of the ventral midline hernia. Additional fat along the peritoneum in this area was also dissected from the anterior abdominal wall in order to create room for mesh placement. Hemostasis was ensured. At this point I turned my attention to repairing the left inguinal hernia. The robot was undocked and the patient placed in Trendelenburg. The robot was then redocked. The hernia was visualized containing a loop of unobstructed, viable. The peritoneum was scored approximately 5 to 6 cm from the hernia defect. The peritoneum was then incised from the midline to the ASIS. The preperitoneal flap was then developed in an avascular plane. I first defined the medial margin by dissecting to the pubic tubercle. The pubic tubercle was cleared of overlying fatty tissue using blunt dissection. I then created the lateral margin in a similar fashion. Great care was taken to avoid injury to any nerves. There was a very large indirect inguinal hernia and the hernia sac was gently reduced using blunt dissection and transecting cremasteric fibers with electrocautery. During the dissection, the cord structures were identified and protected. The chronically incarcerated colon along with a large cord lipoma was meticulously dissected. This did take an extended amount of time. Once the hernia sac was completely reduced, the peritoneal flap was checked for hemostasis. Any additional cremasteric fibers that were were tenting up the peritoneum were divided. Hemostasis was carefully ensured. The hernia was repaired using a LEFT large 3D max mesh. The mesh along with suture material was placed into the abdomen by the printer floor covering assistant. The mesh was positioned into the preperitoneal flap in the usual fashion. The medial portion of the mesh was sutured to the pubic tubercle using an interrupted 2-0 Vicryl stitch. The lateral aspect of the mesh was sutured to the anterior lateral abdominal wall using a 2-0 Vicryl interrupted stitch. The mesh was seen to lay flat in the pocket with excellent coverage. The peritoneum was then reapproximated using 3-0 running V-Loc stitch. The entirety of the mesh was covered with peritoneum. We then turned our attention to repairing the ventral hernia. An 11.4 cm ventral light composite mesh along with suture material was placed into the abdomen by the printer floor covering assistant. The abdominal pressure was turned down to 10 mmHg and the fascial defect approximated using a running oh VLoc stitch the mesh was then positioned at the center of the defect with the coated side towards the bowel. This was sutured in circumferentially to the peritoneum using a running 2-0 Vloc suture. The mesh was seen to lie flat against the abdominal wall with excellent coverage of the hernia defect. Hemostasis was ensured. The robot was then undocked and the surgeon scrubbed back in. The remainder of the case was performed laparoscopically. All sharp materials along with a Ray-Tecs were removed from the abdomen under direct visualization. The pre peritoneal fat which was reduced from the ventral hernia was placed into an Endo Catch bag and removed from the abdomen via the 12 mm port. This was passed off the table as a specimen. The 12 mm port fascia was closed using a interrupted 0 Vicryl stitch. The abdomen was then slowly desufflated and the mesh was seen to lay flat. The remaining trocars were removed. Skin incisions were once again infiltrated with local anesthetic. LEFT ilioinguinal nerve block was also performed with 5 cc of local anesthetic. The skin incisions were approximated with 4-0 Monocryl subcuticular stitches and skin glue. A balled up 4 x 4 gauze was placed at the site of the ventral hernia and secured with a Tegaderm. An abdominal binder was applied to the patient. At the end of the case all sponge, instrument, sharp counts were correct x2. Patient was awoken from anesthesia and Goodman catheter removed. Both testicles were palpated in the scrotum in anatomic position. The patient was taken to PACU in stable condition.
--- NOTE | 2020-07-11 13:06 | Progress Note ---
Subjective Date of service: 07/11/20 Principal diagnosis: Incarcerated inguinal hernia, Perm AF, ESRD, s/p PPM, ESRD, NSVT Interval history: Impression: * End stage renal disease * Incarcerated inguinal hernia * Urinary tract infection * Atrial fibrillation on chronic anticoagulation * Anemia secondary to ESRD * Secondary hyperparathyroidism Plan:y * Continue MWF schedule * UF as tolerated * Surgery recommendations for surgical repair noted * Cardiology following. * Abx per primary team * Diet per surgery * low k renal diet * Epogen TIW prn * ok to dc from renal standpoint Subjective Principal diagnosis: Incarcerated inguinal hernia, Perm AF, ESRD, s/p PPM, ESRD, NSVT Interval history: Patient has no complaints today. Reports pain related to inguinal hernia. Tolerating po. Objective General appearance: well-developed EENT: ATNC Respiratory: Present: Clear to Ascultation Cardiology: regular, S1S2 Gastrointestinal: normal, no distended Integumentary: no rash, warm and dry Neurologic: no focal deficit, alert and oriented x3 Objective - Vital Signs Vital signs: Vital Signs - 12hr 07/11/20 07/11/20 07/11/20 03:20 09:25 09:30 Temperature 97.7 F Pulse Rate 73 Pulse Rate [ 75 Anterior Bilateral Throughout] Respiratory 16 Rate Respiratory 18 Rate [Anterior Bilateral Throughout] Blood Pressure 113/63 O2 Sat by Pulse 97 97 Oximetry 07/11/20 07/11/20 07/11/20 09:34 09:46 10:00 Temperature 97.9 F Pulse Rate 75 66 66 Pulse Rate [ Anterior Bilateral Throughout] Respiratory 18 Rate Respiratory Rate [Anterior Bilateral Throughout] Blood Pressure 111/65 97/58 115/61 O2 Sat by Pulse Oximetry 07/11/20 07/11/20 07/11/20 10:15 10:30 10:45 Temperature Pulse Rate 67 76 71 Pulse Rate [ Anterior Bilateral Throughout] Respiratory Rate Respiratory Rate [Anterior Bilateral Throughout] Blood Pressure 110/64 106/64 108/67 O2 Sat by Pulse Oximetry 07/11/20 07/11/20 07/11/20 11:00 11:15 11:30 Temperature Pulse Rate 84 80 83 Pulse Rate [ Anterior Bilateral Throughout] Respiratory Rate Respiratory Rate [Anterior Bilateral Throughout] Blood Pressure 127/77 110/61 103/54 O2 Sat by Pulse Oximetry 07/11/20 07/11/20 07/11/20 11:45 12:00 12:15 Temperature Pulse Rate 70 77 80 Pulse Rate [ Anterior Bilateral Throughout] Respiratory Rate Respiratory Rate [Anterior Bilateral Throughout] Blood Pressure 111/67 96/47 94/54 O2 Sat by Pulse Oximetry 07/11/20 07/11/20 07/11/20 12:30 12:45 13:00 Temperature Pulse Rate 75 67 79 Pulse Rate [ Anterior Bilateral Throughout] Respiratory Rate Respiratory Rate [Anterior Bilateral Throughout] Blood Pressure 106/63 110/64 100/61 O2 Sat by Pulse Oximetry - Lab 07/11/20 04:53 07/11/20 04:53 Most recent lab results Calcium TNR 07/11/20 04:53 Magnesium 2.00 mg/dL (1.7-2.3) 07/07/20 05:01 Medications & Allergies - Medications Allergies/Adverse Reactions: Allergies nifedipine [From Procardia] Allergy (Verified 07/05/20 15:30) muscle spasms Home Medications: Home Medications Medication Instructions Recorded Confirmed Last Taken Type Furosemide [Lasix TAB] 80 mg PO DAILY 02/12/18 04/27/18 04/25/18 09:00 History Metformin HCl 500 mg PO DAILY 02/12/18 04/27/18 04/25/18 09:00 History Potassium Chloride [Klor-Con M20] 20 meq PO DAILY 02/12/18 04/27/18 04/25/18 09:00 History Sitagliptin Phosphate [Januvia] 100 mg PO DAILY 02/12/18 04/27/18 04/25/18 09:00 History allopurinoL [Allopurinol] 100 mg PO DAILY 02/12/18 04/27/18 04/25/18 09:00 History lisinopriL [Zestril TAB] 10 mg PO DAILY 02/12/18 04/27/18 04/25/18 09:00 History metOLazone [Metolazone] 5 mg PO DAILY 02/12/18 04/27/18 04/25/18 09:00 History HYDROcodone/APAP 5-325 [[place] 1 each PO Q6HR PRN 3 Days #14 07/10/20 Unknown Rx 5-325 mg TAB] tablet carvediloL [Coreg] 3.125 mg PO BID #60 tablet 07/10/20 Unknown Rx polyethylene glycoL 3350 [Miralax 17 gm PO QDAY PRN #10 powd.pack 07/10/20 Unknown Rx 3350] Rivaroxaban [Xarelto] 15 mg PO QDAY #30 tablet 07/11/20 Unknown Rx Active Medications: Generic Name Dose Route Start Last Admin Trade Name Freq PRN Reason Stop Dose Admin Acetaminophen 650 mg 07/05/20 23:20 Acetaminophen 325 Mg Tab PO Q4H PRN Pain MILD(1-3)/Fever >100.5/CHANG Albuterol 2.5 mg 07/07/20 02:02 Albuterol 2.5 Mg/3 Ml Nebu IH Q4HRT PRN Shortness Of Breath Albuterol/Ipratropium 1 ampul 07/07/20 08:00 07/11/20 09:22 Ipratropium/Albuterol Sulfate 3 Ml Ampul.Neb IH 1 ampul TIDRT ARSLAN Administration Carvedilol 3.125 mg 07/07/20 10:00 07/10/20 21:21 Carvedilol 3.125 Mg Tab PO 3.125 mg BID ARSLAN Administration Dextrose 50 ml 07/05/20 23:23 07/10/20 06:21 Dextrose 50% In Water (25gm) 50 Ml Syringe IV 50 ml Q30MIN PRN Administration Hypoglycemia Protocol Docusate Sodium 100 mg 07/06/20 11:00 07/10/20 21:21 Docusate Sodium 100 Mg Cap PO 100 mg BID ARSLAN Administration Famotidine 20 mg 07/11/20 11:00 Famotidine 20 Mg Tab PO DAILY ARSLAN Furosemide 80 mg 07/11/20 10:00 Furosemide 40 Mg Tab PO QDAY ARSLAN Guaifenesin 200 mg 07/09/20 10:00 07/09/20 22:15 Guaifenesin 100 Mg/5 Ml Oral Liqd PO 200 mg Q4H PRN Administration Cough Levofloxacin/Dextrose 250 mg in 50 mls @ 50 mls/hr 07/06/20 11:00 07/10/20 17:36 Levaquin 250mg/50ml IV 07/18/20 11:59 50 mls/hr Q48H ARSLAN Administration Sodium Chloride 100 mls @ 999 mls/hr 07/08/20 15:05 Nacl 0.9% IV WENDI PRN Hypotension Insulin Human Lispro 0 unit 07/06/20 00:00 07/11/20 01:00 Insulin Lispro 100 Unit/Ml SUB-Q Not Given Q6HR [facility] Protocol Morphine Sulfate 2 mg 07/05/20 23:20 07/09/20 22:09 Morphine 2 Mg/1 Ml Inj IV 2 mg Q4H PRN Administration Pain , Severe (7-10) Ondansetron HCl 4 mg 07/05/20 23:20 Ondansetron 4 Mg/2 Ml Inj IV Q8H PRN Nausea And Vomiting Oxycodone/Acetaminophen 2 tab 07/10/20 15:02 Oxycodone /Acetaminophen 5-325mg Tab PO Q6H PRN Pain, Moderate (4-6) Polyethylene Glycol 17 gm 07/06/20 11:00 07/10/20 10:00 Polyethylene Glycol 3350 17 Gm Powder PO Not Given QDAY [facility] Sodium Chloride 10 ml 07/06/20 10:00 07/10/20 21:21 Sodium Chloride 0.9% 10 Ml Flush Syringe IV 10 ml BID ARSLAN Administration Sodium Chloride 10 ml 07/05/20 23:20 Sodium Chloride 0.9% 10 Ml Flush Syringe IV PRN PRN LINE FLUSH
[2020-07-11 14:21] VITALS: BP 95/51
[2020-07-11] MEDS: DOCUSATE SODIUM 100 MG CAP PO SCH ×2 (14:41→14:48)
[2020-07-11] MEDS: carvediloL 3.125 MG TAB PO SCH (14:43)
[2020-07-11] MEDS: POLYETHYLENE GLYCOL 3350 17 GM POWDER PO SCH (14:49)
--- NOTE | 2020-07-11 14:59 | Progress Note ---
Assessment and Plan 69-year-old male status post robotic assisted lysis of adhesions, ventral and left inguinal hernia repair with mesh, POD 1 1. incarcerated left inguinal hernia containing nonobstructed colon - chronic 2. incarcerated umbilical hernia containing fat - chronic 3. ESRD 4. CHF 5. On xarelto Plan: 1. Renal diet 2. bowel regimen 3. prn PO pain control 4. May resume xarelto tomorrow 5. Abdominal binder 6. IS/pulm toilet - pt reaching 1000 cc on IS 7. OOB.ambulate 8. Okay to DC from surgery standpoint if patient is able to ambulate with cane (baseline status). Patient given verbal and written discharge instructions and advised to call the office to schedule follow-up visit in 2 weeks. He was advised to avoid heavy lifting for the next 6 weeks. He may shower today. Discussed with Dr. Schneider. Discussed with ERWIN Hamm and asked to please ambulate patient prior to dc. Thank you, please call with questions. Evaluation and treatment of this patient was during the time of the national and state emergency arising from COVID19 coronavirus pandemic. Treatment and procedures performed meet the current and available best practice and guidelines for patient during the COVID pandemic. Subjective Date of service: 07/11/20 Narrative: Pt seen and examined. c/o soreness to abdomen near incisions. No n/v. Tolerated diet. Had HD today. Has not been OOB. Wants to go home. Objective Vital Signs - 12hr 07/11/20 07/11/20 07/11/20 03:20 09:00 09:25 Temperature 97.7 F Pulse Rate 73 Pulse Rate [ Anterior Bilateral Throughout] Respiratory 16 Rate Respiratory Rate [Anterior Bilateral Throughout] Blood Pressure 113/63 O2 Sat by Pulse 97 97 97 Oximetry 07/11/20 07/11/20 07/11/20 09:30 09:34 09:46 Temperature 97.9 F Pulse Rate 75 66 Pulse Rate [ 75 Anterior Bilateral Throughout] Respiratory 18 Rate Respiratory 18 Rate [Anterior Bilateral Throughout] Blood Pressure 111/65 97/58 O2 Sat by Pulse Oximetry 07/11/20 07/11/20 07/11/20 10:00 10:15 10:30 Temperature Pulse Rate 66 67 76 Pulse Rate [ Anterior Bilateral Throughout] Respiratory Rate Respiratory Rate [Anterior Bilateral Throughout] Blood Pressure 115/61 110/64 106/64 O2 Sat by Pulse Oximetry 07/11/20 07/11/20 07/11/20 10:45 11:00 11:15 Temperature Pulse Rate 71 84 80 Pulse Rate [ Anterior Bilateral Throughout] Respiratory Rate Respiratory Rate [Anterior Bilateral Throughout] Blood Pressure 108/67 127/77 110/61 O2 Sat by Pulse Oximetry 07/11/20 07/11/20 07/11/20 11:30 11:45 12:00 Temperature Pulse Rate 83 70 77 Pulse Rate [ Anterior Bilateral Throughout] Respiratory Rate Respiratory Rate [Anterior Bilateral Throughout] Blood Pressure 103/54 111/67 96/47 O2 Sat by Pulse Oximetry 07/11/20 07/11/20 07/11/20 12:15 12:30 12:45 Temperature Pulse Rate 80 75 67 Pulse Rate [ Anterior Bilateral Throughout] Respiratory Rate Respiratory Rate [Anterior Bilateral Throughout] Blood Pressure 94/54 106/63 110/64 O2 Sat by Pulse Oximetry 07/11/20 07/11/20 07/11/20 13:00 13:15 13:30 Temperature Pulse Rate 79 75 69 Pulse Rate [ Anterior Bilateral Throughout] Respiratory Rate Respiratory Rate [Anterior Bilateral Throughout] Blood Pressure 100/61 113/73 89/33 O2 Sat by Pulse Oximetry 07/11/20 07/11/20 13:47 14:04 Temperature 98.1 F Pulse Rate 76 79 Pulse Rate [ Anterior Bilateral Throughout] Respiratory 18 Rate Respiratory Rate [Anterior Bilateral Throughout] Blood Pressure 89/43 95/51 O2 Sat by Pulse Oximetry - General physical appearance Narrative Exam: Gen.: Awake, alert, oriented 3. No apparent distress ENT: Trachea midline. No lymphadenopathy. No scleral icterus or conjunctival pallor CV: S1, S2 present Respiratory: No audible wheezes Abdomen: Soft, nondistended, obese, mild periincisional tenderness. All incisions are clean, dry, intact. Abdominal binder is in place. Midline dressing is clean, dry, intact. No scrotal swelling. No rebound, rigidity, guarding Extremities: No clubbing, cyanosis, edema - Labs 07/11/20 04:53 07/11/20 04:53 Diabetes panel 07/11/20 Range/Units 04:53 Sodium TNR Potassium TNR Chloride TNR Carbon Dioxide TNR BUN TNR Creatinine TNR Glucose TNR Calcium TNR Calcium panel 07/11/20 Range/Units 04:53 Calcium TNR Pituitary panel 07/11/20 Range/Units 04:53 Sodium TNR Potassium TNR Chloride TNR Carbon Dioxide TNR BUN TNR Creatinine TNR Glucose TNR Calcium TNR Adrenal panel 07/11/20 Range/Units 04:53 Sodium TNR Potassium TNR Chloride TNR Carbon Dioxide TNR BUN TNR Creatinine TNR Glucose TNR Calcium TNR
[2020-07-11 16:20] LABS: Calcium 8.5 mg/dL (8.4-10.2)
--- NOTE | 2020-07-12 10:29 | Treadmill Report ---
[facility] Test Date: 2020-07-09 Test Time: 08:36:47 Pat Name: BASILIO STANLEY Department: Room: A462 1 Gender: M Worm Raiser: Vannessa Baker : 1950 Requested By: HAIDER MARQUEZ Order Number: [id number] Reading MD: Sofia Shea Interpretive Statements See dictated report Electronically Signed On 07-12-2020 10:28:57 EDT by Sofia Shea
== END 2020-07-11 18:00 | disposition home health service (06) | DRG 335 ==
LOC: ED 14:45 → 4A 23:02 → OBSVTOIN 07-10 13:22
PROVIDERS: ADMIT Hospitalist; ATTEND Internal Medicine
PROC: 5A1D70Z Performance of Urinary Filtration, Intermittent, Less than 6 Hours Per Day (ICD-10-PCS; 2020-07-06)
PROC: 5A1D70Z Performance of Urinary Filtration, Intermittent, Less than 6 Hours Per Day (ICD-10-PCS; 2020-07-09)
PROC: 0YU60JZ Supplement Left Inguinal Region with Synthetic Substitute, Open Approach (ICD-10-PCS; principal; 2020-07-10)
PROC: 0DNU0ZZ Release Omentum, Open Approach (ICD-10-PCS; 2020-07-10)
PROC: 0WUF0JZ Supplement Abdominal Wall with Synthetic Substitute, Open Approach (ICD-10-PCS; 2020-07-10)
PROC: 8E0W4CZ Robotic Assisted Procedure of Trunk Region, Percutaneous Endoscopic Approach (ICD-10-PCS; 2020-07-10)
PROC: 5A1D70Z Performance of Urinary Filtration, Intermittent, Less than 6 Hours Per Day (ICD-10-PCS; 2020-07-11)
DX: K40.30 Unilateral inguinal hernia, with obstruction, without gangrene, not specified as recurrent (principal); N18.6 End stage renal disease; I13.2 Hypertensive heart and chronic kidney disease with heart failure and with stage 5 chronic kidney disease, or end stage renal disease; N30.00 Acute cystitis without hematuria; N25.81 Secondary hyperparathyroidism of renal origin; I47.0 Re-entry ventricular arrhythmia; Z68.41 Body mass index [BMI] 40.0-44.9, adult; I42.9 Cardiomyopathy, unspecified; M19.90 Unspecified osteoarthritis, unspecified site; I50.9 Heart failure, unspecified; K80.20 Calculus of gallbladder without cholecystitis without obstruction; J44.9 Chronic obstructive pulmonary disease, unspecified; E11.22 Type 2 diabetes mellitus with diabetic chronic kidney disease; I25.10 Atherosclerotic heart disease of native coronary artery without angina pectoris; D63.1 Anemia in chronic kidney disease; F17.210 Nicotine dependence, cigarettes, uncomplicated; E66.01 Morbid (severe) obesity due to excess calories; I48.91 Unspecified atrial fibrillation; Z79.899 Other long term (current) drug therapy; Z79.891 Long term (current) use of opiate analgesic; Z79.84 Long term (current) use of oral hypoglycemic drugs; Z79.01 Long term (current) use of anticoagulants; Z88.8 Allergy status to other drugs, medicaments and biological substances; Z99.2 Dependence on renal dialysis; Z95.810 Presence of automatic (implantable) cardiac defibrillator; Z72.89 Other problems related to lifestyle; K43.9 Ventral hernia without obstruction or gangrene
CPT/HCPCS: 36415; 74176; 78452; 80048; 80053; 80074; 81001; 82140; 82962; 83735; 85014; 85018; 85025; 85027; 85049; 85520; 85610; 85730; 88302; 93017; 93306; 94640; 96365; 96375; G0378; A4217; A9502; C1781; J0696; J1100; J1170; J1644; J1956; J2270; J2370; J2405; J2704; J2710; J2785; J7030

== ENCOUNTER 2021-08-12 12:59 | Inpatient (IN) | payer MEDICARE ==
[2021-08-12 17:00] LABS: Basophils % (Auto) 0.5 % (0.0-1.8); Eosinophils # (Auto) 0.3 K/mm3 (0.0-0.4); Eosinophils % (Auto) 3.8 % (0.0-4.3); Hematocrit 32.8 % (35.5-45.6); Hemoglobin 10.7 gm/dl (11.8-15.2); Lymphocytes # (Auto) 1.1 K/mm3 (1.2-5.4); Lymphocytes % (Auto) 14.9 % (13.4-35.0); Mean Corpuscular HGB Conc 33 % (32-34); Mean Corpuscular Volume 89 fl (84-94); Monocytes % (Auto) 13.3 % (0.0-7.3); Platelet Count 242 K/mm3 (140-440); Red Blood Count 3.67 M/mm3 (3.65-5.03); Red Cell Distribution Width 16.8 % (13.2-15.2)
[2021-08-12 17:02] LABS: Bilirubin,Urine NEG (Negative); Blood,Urine MOD (Negative); Color,Urine Yellow (Yellow); Mucus,Urine FEW /HPF; Urobilinogen,Urine < 2.0 mg/dL (<2.0)
[2021-08-12 17:20] LABS: Partial Thromboplastin Time 33.5 Sec. (24.2-36.6)
[2021-08-12 17:34] LABS: Albumin 3.7 g/dL (3.9-5); Calcium 9.2 mg/dL (8.4-10.2)
--- NOTE | 2021-08-12 17:51 | Emergency Department Report ---
HPI - General Chief Complaint: Weakness Time Seen by Provider: 08/12/21 17:29 - HPI HPI: For the last week or so the patient has too weak to stand. He is really been getting around. He feels his knees are in a buckle below him. He reports good compliance with all of his medicines. He denies nausea vomiting fever chills but does report some worsening of his bilateral lower extremity edema. He has a history of chronic renal insufficiency, hypertension, CHF with a pacemaker/defibrillator and gout. Reports taking 80 mg of Lasix twice a day as well as 5 mg of Eliquis twice daily. He denies any other associated symptoms and nothing makes this better or worse. His last hemodialysis was 3 days ago and he missed today's because he was too weak to go. ED Past Medical Hx - Past Medical History Previous Medical History?: Yes Hx Hypertension: Yes Hx Congestive Heart Failure: Yes Hx Diabetes: Yes Hx Renal Disease: Yes (DIALYSIS, last 08/09/21) Hx Arthritis: Yes (All joints) Hx COPD: Yes - Surgical History Hx Pacemaker: Yes - Social History Smoking Status: Never Smoker - Medications Home Medications: Home Medications Medication Instructions Recorded Confirmed Last Taken Type Furosemide [Lasix TAB] 80 mg PO DAILY 02/12/18 04/27/18 04/25/18 09:00 History Metformin HCl 500 mg PO DAILY 02/12/18 04/27/18 04/25/18 09:00 History Potassium Chloride [Klor-Con M20] 20 meq PO DAILY 02/12/18 04/27/18 04/25/18 09:00 History Sitagliptin Phosphate [Januvia] 100 mg PO DAILY 02/12/18 04/27/18 04/25/18 09:00 History allopurinoL [Allopurinol] 100 mg PO DAILY 02/12/18 04/27/18 04/25/18 09:00 History lisinopriL [Zestril TAB] 10 mg PO DAILY 02/12/18 04/27/18 04/25/18 09:00 History metOLazone [Metolazone] 5 mg PO DAILY 02/12/18 04/27/18 04/25/18 09:00 History HYDROcodone/APAP 5-325 [[place] 1 each PO Q6HR PRN 3 Days #14 07/10/20 Unknown Rx 5-325 mg TAB] tablet carvediloL [Coreg] 3.125 mg PO BID #60 tablet 07/10/20 Unknown Rx polyethylene glycoL 3350 [Miralax 17 gm PO QDAY PRN #10 powd.pack 07/10/20 Unknown Rx 3350] Rivaroxaban [Xarelto] 15 mg PO QDAY #30 tablet 07/11/20 Unknown Rx ED Review of Systems ROS: Stated complaint: LOWER EXTREMITIES/WEAKNESS Other details as noted in HPI Other: All other systems reviewed and negative. Physical Exam - Physical Exam Vital Signs: Vital Signs 08/12/21 13:00 Temperature 98.4 F Pulse Rate 90 Blood Pressure 149/84 [Left] O2 Sat by Pulse 97 Oximetry Physical Exam: Physical Exam: Constitutional: AAOX3. No acute distress. No diaphoresis. Obese. He needed help to pivot from the wheelchair to the bed and could not support his own weight standing. HENT: Normocephalic. Pupils equal and reactive. No throat edema or erythema. Neck: No neck rigidity or tenderness. Cardiovascular: Heart sounds: No murmur. Normal rate and regular rhythm. Pulses: Intact distal pulses. Lungs: No wheezing or rales. Chest wall: No tenderness. Abdominal: No distension. No mass/pulsatile mass. No abdominal tenderness, guarding nor rebound. Back: No CVA TTP. Musculoskeletal: Normal range of motion. The patient has a right arm AV fistula. He is got 3+ bilateral pedal and pretibial massive edema. Skin: Warm and dry. Neurological: Alert and oriented to person, place, and time. Psychiatric: Mood and affect normal. Normal cognition and memory. Normal judg ement. ED Course Vital Signs 08/12/21 13:00 Temperature 98.4 F Pulse Rate 90 Blood Pressure 149/84 [Left] O2 Sat by Pulse 97 Oximetry - Reevaluation(s) Reevaluation #1: 08/12/21 18:47 The patient seems fluid overloaded on chest x-ray although he is not hypoxic saturating at 97% on room air. His BNP is elevated at 34,000. His potassium was within normal limits. He does not produce urine. His laboratories otherwise were mostly unremarkable. I spoke to who will be admitting for nephrology consultation and possible hemodialysis and treatment of his bilateral lower extremity edema. ED Medical Decision Making - Lab Data Result diagrams: 08/12/21 Unknown 08/12/21 Unknown Critical care attestation.: If time is entered above; I have spent that time in minutes in the direct care of this critically ill patient, excluding procedure time. ED Disposition Clinical Impression: Fluid overload Disposition: 02 SHORT [facility] Is pt being admited?: Yes Does the pt Need Aspirin: No Condition: Stable
--- NOTE | 2021-08-12 18:21 | XRay Report ---
. XR chest 1V ap INDICATION / CLINICAL INFORMATION: Chest Pain. COMPARISON: None available. FINDINGS: SUPPORT DEVICES: Left-sided cardiac pacemaker. HEART /PULMONARY VASCULATURE: Cardiac enlargement with mild pulmonary vasculature congestion. LUNGS / PLEURA: No focal airspace consolidation. No sizable pleural effusion. No pneumothorax. ADDITIONAL FINDINGS: No significant additional findings. IMPRESSION: Mild CHF/volume overload. Signer Name: Girish Wells MD Signed: 08/12/2021 6:16 PM Workstation Name: [id number]
[2021-08-12 19:43] LABS: Chol/HDL Ratio 2.61 %
[2021-08-12] MEDS ORDERED: POLYETHYLENE GLYCOL 3350 17 GM POWDER PO PRN (20:55)
--- NOTE | 2021-08-12 20:55 | History and Physical Report ---
History of Present Illness Date of examination: 08/12/21 Date of admission: 08/12/2021 Chief complaint: Shortness of breath for 2 days Weakness for 1 week History of present illness: 70-year-old male with history of hypertension, end-stage renal disease and type 2 diabetes comes in for severe weakness difficulty walking. Also increasing shortness of breath. Complains of worsening bilateral lower extremity edema. History of CHF and pacemaker and defibrillator and gout. Admits to hemodialysis today. Patient takes Lasix twice a day for his CHF and bilateral lower extremity edema. And does not make any urine output. Orthopnea present. No chest pain. Shortness of breath on minimal exertion. Has class IV NYHA symptoms. - Past Medical History Previous Medical History?: Yes --Hypertension: Yes --Congestive Heart Failure: Yes --Diabetes: Yes --Renal Disease: Yes (DIALYSIS, last 08/09/21) --Arthritis: Yes (All joints) --COPD: Yes - Surgical History --Pacemaker: Yes - Social History --Smoking Status: Never Smoker - Medications --Home Medications: Home Medications Medication Instructions Recorded Confirmed Last Taken Type Furosemide [Lasix TAB] 80 mg PO DAILY 02/12/18 04/27/18 04/25/18 09:00 History Metformin HCl 500 mg PO DAILY 02/12/18 04/27/18 04/25/18 09:00 History Potassium Chloride [Klor-Con M20] 20 meq PO DAILY 02/12/18 04/27/18 04/25/18 09:00 History Sitagliptin Phosphate [Januvia] 100 mg PO DAILY 02/12/18 04/27/18 04/25/18 09:00 History allopurinoL [Allopurinol] 100 mg PO DAILY 02/12/18 04/27/18 04/25/18 09:00 History lisinopriL [Zestril TAB] 10 mg PO DAILY 02/12/18 04/27/18 04/25/18 09:00 History metOLazone [Metolazone] 5 mg PO DAILY 02/12/18 04/27/18 04/25/18 09:00 History HYDROcodone/APAP 5-325 [[place] 1 each PO Q6HR PRN 3 Days #14 07/10/20 Unknown Rx 5-325 mg TAB] tablet carvediloL [Coreg] 3.125 mg PO BID #60 tablet 07/10/20 Unknown Rx polyethylene glycoL 3350 [Miralax 17 gm PO QDAY PRN #10 powd.pack 07/10/20 Unknown Rx 3350] Rivaroxaban [Xarelto] 15 mg PO QDAY #30 tablet 07/11/20 Unknown Rx Review of Systems ROS: Constitutional severe weakness HEENT no sore throat no post nasal drip no diplopia Neck no neck stiffness no lymph gland enlargement Chest and lungs shortness of breath on minimal exertion CVS no chest pain no diaphoresis no palpitations GI no nausea no vomiting no diarrhea Genitourinary system no dysuria no flank pain Musculoskeletal system no muscle pains no joint pains [employer] no syncope no seizures Skin no rash no itching Psychiatric no depression no homicidal or suicidal tendencies Hematologic no lymphedema or bruising Endocrine no polydipsia no polyuria no cold intolerance no heat intolerance Medications and Allergies Allergies Allergy/AdvReac Type Severity Reaction Status Date / Time nifedipine [From Procardia] Allergy muscle Verified 08/12/21 18:30 spasms Home Medications Medication Instructions Recorded Confirmed Last Taken Type Furosemide [Lasix TAB] 80 mg PO DAILY 02/12/18 04/27/18 04/25/18 09:00 History Metformin HCl 500 mg PO DAILY 02/12/18 04/27/18 04/25/18 09:00 History Potassium Chloride [Klor-Con M20] 20 meq PO DAILY 02/12/18 04/27/18 04/25/18 09:00 History Sitagliptin Phosphate [Januvia] 100 mg PO DAILY 02/12/18 04/27/18 04/25/18 09:00 History allopurinoL [Allopurinol] 100 mg PO DAILY 02/12/18 04/27/18 04/25/18 09:00 History lisinopriL [Zestril TAB] 10 mg PO DAILY 02/12/18 04/27/18 04/25/18 09:00 History metOLazone [Metolazone] 5 mg PO DAILY 02/12/18 04/27/18 04/25/18 09:00 History HYDROcodone/APAP 5-325 [[place] 1 each PO Q6HR PRN 3 Days #14 07/10/20 Unknown Rx 5-325 mg TAB] tablet carvediloL [Coreg] 3.125 mg PO BID #60 tablet 07/10/20 Unknown Rx polyethylene glycoL 3350 [Miralax 17 gm PO QDAY PRN #10 powd.pack 07/10/20 Unknown Rx 3350] Rivaroxaban [Xarelto] 15 mg PO QDAY #30 tablet 07/11/20 Unknown Rx Exam - Constitutional Vitals: Temp Pulse Resp BP Pulse Ox 98.4 F 93 H 24 130/42 95 08/12/21 13:00 08/12/21 18:45 08/12/21 18:45 08/12/21 18:45 08/12/21 18:45 General appearance: Present: mild distress, well-nourished - EENT Eyes: Present: PERRL ENT: hearing intact, clear oral mucosa - Neck Neck: Present: supple, normal ROM - Respiratory Respiratory effort: normal Respiratory: bilateral: CTA - Cardiovascular Heart rate: 78 Rhythm: regular Heart Sounds: Present: S1 & S2. Absent: rub, click - Extremities Extremities: no ischemia, pulses intact, pulses symmetrical, No edema Peripheral Pulses: within normal limits - Abdominal General gastrointestinal: Present: soft, non-tender, non-distended, normal bowel sounds Male genitourinary: Present: normal - Rectal Rectal Exam: deferred - Integumentary Integumentary: Present: clear, warm, dry - Musculoskeletal Musculoskeletal: gait normal, strength equal bilaterally - Psychiatric Psychiatric: appropriate mood/affect, intact judgment & insight - Neurologic Neurologic: CNII-XII intact, moves all extremities - Allied Health Allied health notes reviewed: nursing, case management HEART Score - HEART Score History: Slightly suspicious Age: > 65 Risk factors: > 3 risk factors or hx of atherosclerotic disease Troponin: Troponin T 0.092 ng/mL (0.00-0.029) H 08/12/21 Unknown Troponin: 1-3x normal limit - Critical Actions Critical Actions: 4-6 pts:12-16.6% risk of adverse cardiac event. Should be admitted Results - Labs CBC & Chem 7: 08/12/21 Unknown 08/12/21 Unknown Labs: Laboratory Last Values WBC 7.7 K/mm3 (4.5-11.0) 08/12/21 Unknown RBC 3.67 M/mm3 (3.65-5.03) 08/12/21 Unknown Hgb 10.7 gm/dl (11.8-15.2) L 08/12/21 Unknown Hct 32.8 % (35.5-45.6) L 08/12/21 Unknown MCV 89 fl (84-94) 08/12/21 Unknown MCH 29 pg (28-32) 08/12/21 Unknown MCHC 33 % (32-34) 08/12/21 Unknown RDW 16.8 % (13.2-15.2) H 08/12/21 Unknown Plt Count 242 K/mm3 (140-440) 08/12/21 Unknown Lymph % (Auto) 14.9 % (13.4-35.0) 08/12/21 Unknown [place] % (Auto) 13.3 % (0.0-7.3) H 08/12/21 Unknown Eos % (Auto) 3.8 % (0.0-4.3) 08/12/21 Unknown Baso % (Auto) 0.5 % (0.0-1.8) 08/12/21 Unknown Lymph # (Auto) 1.1 K/mm3 (1.2-5.4) L 08/12/21 Unknown [place] # (Auto) 1.0 K/mm3 (0.0-0.8) H 08/12/21 Unknown Eos # (Auto) 0.3 K/mm3 (0.0-0.4) 08/12/21 Unknown Baso # (Auto) 0.0 K/mm3 (0.0-0.1) 08/12/21 Unknown Seg Neutrophils % 67.5 % (40.0-70.0) 08/12/21 Unknown Seg Neutrophils # 5.2 K/mm3 (1.8-7.7) 08/12/21 Unknown PT 14.3 Sec. (12.2-14.9) 08/12/21 Unknown INR 1.00 (0.87-1.13) 08/12/21 Unknown APTT 33.5 Sec. (24.2-36.6) 08/12/21 Unknown Sodium 139 mmol/L (137-145) 08/12/21 Unknown Potassium 4.4 mmol/L (3.6-5.0) 08/12/21 Unknown Chloride 96.5 mmol/L (98-107) L 08/12/21 Unknown Carbon Dioxide 26 mmol/L (22-30) 08/12/21 Unknown Anion Gap 21 mmol/L 08/12/21 Unknown BUN 59 mg/dL (9-20) H 08/12/21 Unknown Creatinine 9.0 mg/dL (0.8-1.3) H 08/12/21 Unknown Estimated GFR 7 ml/min 08/12/21 Unknown BUN/Creatinine Ratio 7 % 08/12/21 Unknown Glucose 94 mg/dL (75-100) 08/12/21 Unknown Lactic Acid 1.30 mmol/L (0.7-2.0) 08/12/21 18:01 Calcium 9.2 mg/dL (8.4-10.2) 08/12/21 Unknown Total Bilirubin 0.40 mg/dL (0.1-1.2) 08/12/21 Unknown AST 28 units/L (5-40) 08/12/21 Unknown ALT 24 units/L (7-56) 08/12/21 Unknown Alkaline Phosphatase 117 units/L (35-129) 08/12/21 Unknown Troponin T 0.092 ng/mL (0.00-0.029) H 08/12/21 Unknown NT-Pro-B Natriuret Pep 23098 pg/mL (0-900) H 08/12/21 18:01 Total Protein 7.2 g/dL (6.3-8.2) 08/12/21 Unknown Albumin 3.7 g/dL (3.9-5) L 08/12/21 Unknown Albumin/Globulin Ratio 1.1 % 08/12/21 Unknown Triglycerides 82 mg/dL (2-149) 08/12/21 18:01 Cholesterol 136 mg/dL (50-199) 08/12/21 18:01 LDL Cholesterol Direct 59 mg/dL (50-130) 08/12/21 18:01 HDL Cholesterol 52 mg/dL (40-59) 08/12/21 18:01 Cholesterol/HDL Ratio 2.61 % 08/12/21 18:01 Urine Color Yellow (Yellow) 08/12/21 Unknown Urine Turbidity Cloudy (Clear) 08/12/21 Unknown Urine pH 6.0 (5.0-7.0) 08/12/21 Unknown Ur Specific [place] 1.012 (1.003-1.030) 08/12/21 Unknown Urine Protein 100 mg/dl mg/dL (Negative) 08/12/21 Unknown Urine Glucose (UA) Neg mg/dL (Negative) 08/12/21 Unknown Urine Ketones Neg mg/dL (Negative) 08/12/21 Unknown Urine Blood Mod (Negative) 08/12/21 Unknown Urine Nitrite Neg (Negative) 08/12/21 Unknown Urine Bilirubin Neg (Negative) 08/12/21 Unknown Urine Urobilinogen < 2.0 mg/dL (<2.0) 08/12/21 Unknown Ur Leukocyte Esterase Lg (Negative) 08/12/21 Unknown Urine WBC (Auto) 110.0 /HPF (0.0-6.0) H 08/12/21 Unknown Urine RBC (Auto) 8.0 /HPF (0.0-6.0) 08/12/21 Unknown U Epithel Cells (Auto) 8.0 /HPF (0-13.0) 08/12/21 Unknown Urine Mucus Few /HPF 08/12/21 Unknown Short CBC 08/12/21 08/13/21 Range/Units Unknown 05:48 WBC 7.7 6.5 (4.5-11.0) K/mm3 Hgb 10.7 L 10.1 L (11.8-15.2) gm/dl Hct 32.8 L 32.1 L (35.5-45.6) % Plt Count 242 226 (140-440) K/mm3 BMP 08/12/21 Unknown Sodium 139 Potassium 4.4 Chloride 96.5 L Carbon Dioxide 26 BUN 59 H Creatinine 9.0 H Glucose 94 Calcium 9.2 Cardiac Enzymes 08/12/21 08/12/21 Range/Units 18:01 Unknown Troponin T 0.089 H 0.092 H (0.00-0.029) ng/mL Liver Function 08/12/21 Range/Units Unknown Total Bilirubin 0.40 (0.1-1.2) mg/dL AST 28 (5-40) units/L ALT 24 (7-56) units/L Alkaline Phosphatase 117 (35-129) units/L Albumin 3.7 L (3.9-5) g/dL Urine 08/12/21 Range/Units Unknown Urine Color Yellow (Yellow) Urine pH 6.0 (5.0-7.0) Ur Specific [place] 1.012 (1.003-1.030) Urine Protein 100 mg/dl (Negative) mg/dL Urine Glucose (UA) Neg (Negative) mg/dL - Imaging and Cardiology EKG: report reviewed (Pacemaker rhythm) Chest x-ray: report reviewed Imaging and Cardiology: Chest x-ray Mild CHF/volume overload Assessment and Plan Advance Directives: Yes (Full code) VTE prophylaxis?: Chemical Plan of care discussed with patient/family: Yes - Patient Problems (1) Volume overload Current Visit: Yes Status: Acute Plan to address problem: Needs emergent hemodialysis Nephrology consulted (2) Acute exacerbation of CHF (congestive heart failure) Current Visit: Yes Status: Acute Qualifiers: Heart failure type: combined systolic and diastolic Qualified Code(s): I50.43 - Acute on chronic combined systolic (congestive) and diastolic (congestive) heart failure Plan to address problem: Continue Lasix Patient does not make any urine output Needs increase ultrafiltration Echocardiogram for ejection fraction and valve function and wall motion abnormalities (3) Hypertension Current Visit: Yes Status: Chronic Qualifiers: Hypertension type: primary hypertension Qualified Code(s): I10 - Essential (primary) hypertension Plan to address problem: Continue antihypertensives and adjust medications (4) T2DM (type 2 diabetes mellitus) Current Visit: Yes Status: Chronic Qualifiers: Diabetes mellitus nursing home insulin use: 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 Plan to address problem: For unknown reasons patient is still on metformin Metformin discontinued Continue Januvia and coverage Check hemoglobin A1c (5) Elevated troponin Current Visit: Yes Status: Chronic Plan to address problem: Troponin leak NSTEMI 2 (6) Elevated brain natriuretic peptide (BNP) level Current Visit: Yes Status: Acute Plan to address problem: Patient on Lasix Needs increased ultrafiltration (7) Anticoagulation adequate Current Visit: Yes Status: Chronic Plan to address problem: On Xarelto for arrhythmias (8) DVT prophylaxis Current Visit: No Status: Acute Plan to address problem: On anticoagulation GI prophylaxis (9) Advance care planning Current Visit: Yes Status: Acute Plan to address problem: Disease education conducted, care plan discussed, diagnosis discussed, prognosis discussed. Patient is full code. Patient acknowledges understanding and agreement with care plan. +30 minutes.
[2021-08-12] MEDS ORDERED: NON-FORMULARY EACH (Rivaroxaban 15 MG Tablet) PO SCH (21:00)
[2021-08-12] MEDS ORDERED: MORPHINE 2 MG/1 ML INJ IV PRN (21:30)
[2021-08-12] MEDS ORDERED: ONDANSETRON 4 MG/2 ML INJ IV PRN (21:30)
[2021-08-12] MEDS ORDERED: HYDROmorphone 0.5 MG/0.5 ML INJ IV PRN (21:30)
[2021-08-12] MEDS ORDERED: ACETAMINOPHEN 325 MG TAB PO PRN (21:30)
[2021-08-12] MEDS ORDERED: HEPARIN 5,000 UNIT/1 ML VIAL SUB-Q SCH (22:00)
[2021-08-12] MEDS: LISINOPRIL 10 MG TAB PO SCH (22:38)
[2021-08-12] MEDS: carvediloL 3.125 MG TAB PO SCH (22:39)
[2021-08-12] MEDS: allopurinoL 100 MG TAB PO SCH (22:39)
[2021-08-13 06:25] LABS: Basophils # (Auto) 0.1 K/mm3 (0.0-0.1); Eosinophils # (Auto) 0.3 K/mm3 (0.0-0.4); Eosinophils % (Auto) 4.5 % (0.0-4.3); Hematocrit 32.1 % (35.5-45.6); Hemoglobin 10.1 gm/dl (11.8-15.2); Lymphocytes # (Auto) 1.5 K/mm3 (1.2-5.4); Lymphocytes % (Auto) 22.8 % (13.4-35.0); Mean Corpuscular HGB Conc 32 % (32-34); Mean Corpuscular Volume 90 fl (84-94); Monocytes # (Auto) 0.8 K/mm3 (0.0-0.8); Monocytes % (Auto) 12.4 % (0.0-7.3); Platelet Count 226 K/mm3 (140-440); Red Blood Count 3.55 M/mm3 (3.65-5.03); Red Cell Distribution Width 17.2 % (13.2-15.2)
[2021-08-13 06:44] LABS: Albumin 3.5 g/dL (3.9-5); Calcium 8.7 mg/dL (8.4-10.2)
[2021-08-13] MEDS ORDERED: NON-FORMULARY EACH (Sitagliptin Phosphate [Januvia] 100 MG Tablet) PO SCH (10:00)
[2021-08-13] MEDS: carvediloL 3.125 MG TAB PO SCH ×2 (10:35→21:58)
[2021-08-13] MEDS: allopurinoL 100 MG TAB PO SCH (10:36)
[2021-08-13] MEDS: RIVAROXABAN 15 MG TAB PO SCH (10:36)
[2021-08-13] MEDS: LINAGLIPTIN 5 MG TAB PO SCH (10:36)
[2021-08-13] MEDS: LISINOPRIL 10 MG TAB PO SCH (10:36)
[2021-08-13] MEDS: INSULIN LISPRO 100 UNIT/ML SUB-Q SCH ×4 (10:37→23:00)
--- NOTE | 2021-08-13 10:41 | Consultation ---
History of Present Illness - Reason for Consult Consult date: 08/13/21 - History of Present Illness This is a 70 year old male who presented to the hospital with a chief complaint of shortness of breath, weakness and states his knees are giving out on him. Patient has ESRD and states he is on hemodialysis every M,W,F. States his last dialysis was on Thursday. States his outpatient solderer torch is Dr. Blankenship. Patient also has hsitory of CHF, Gout, Hypertension and Diabetes. We are being consulted for management of this patient's ESRD. Past History Past Medical History: anemia, diabetes, dialysis, ESRD, heart failure, hypertension Past Surgical History: Other (Right AVF placement) Social history: no significant social history Family history: no significant family history Medications and Allergies Allergies Allergy/AdvReac Type Severity Reaction Status Date / Time nifedipine [From Procardia] Allergy muscle Verified 08/12/21 18:30 spasms Home Medications Medication Instructions Recorded Confirmed Last Taken Type Furosemide [Lasix TAB] 80 mg PO DAILY 02/12/18 04/27/18 04/25/18 09:00 History Metformin HCl 500 mg PO DAILY 02/12/18 04/27/18 04/25/18 09:00 History Potassium Chloride [Klor-Con M20] 20 meq PO DAILY 02/12/18 04/27/18 04/25/18 09:00 History Sitagliptin Phosphate [Januvia] 100 mg PO DAILY 02/12/18 04/27/18 04/25/18 09:00 History allopurinoL [Allopurinol] 100 mg PO DAILY 02/12/18 04/27/18 04/25/18 09:00 History lisinopriL [Zestril TAB] 10 mg PO DAILY 02/12/18 04/27/18 04/25/18 09:00 History metOLazone [Metolazone] 5 mg PO DAILY 02/12/18 04/27/18 04/25/18 09:00 History HYDROcodone/APAP 5-325 [[place] 1 each PO Q6HR PRN 3 Days #14 07/10/20 Unknown Rx 5-325 mg TAB] tablet carvediloL [Coreg] 3.125 mg PO BID #60 tablet 07/10/20 Unknown Rx polyethylene glycoL 3350 [Miralax 17 gm PO QDAY PRN #10 powd.pack 07/10/20 Unkn own Rx 3350] Rivaroxaban [Xarelto] 15 mg PO QDAY #30 tablet 07/11/20 Unknown Rx Active Meds: Active Medications Acetaminophen (Acetaminophen 325 Mg Tab) 650 mg PO Q4H PRN PRN Reason: Pain MILD(1-3)/Fever >100.5/CHANG Allopurinol (Allopurinol 100 Mg Tab) 100 mg PO DAILY [facility] Last Admin: 08/13/21 10:36 Dose: 100 mg Carvedilol (Carvedilol 3.125 Mg Tab) 3.125 mg PO BID [facility] Last Admin: 08/13/21 10:35 Dose: 3.125 mg Hydromorphone HCl (Hydromorphone 0.5 Mg/0.5 Ml Inj) 0.5 mg IV Q3H PRN PRN Reason: Pain , Severe (7-10) Insulin Human Lispro (Insulin Lispro 100 Unit/Ml) 0 unit SUB-Q ACHS [facility]; Protocol Last Admin: 08/13/21 10:37 Dose: Not Given Linagliptin (Linagliptin 5 Mg Tab) 5 mg PO QDAY [facility] Last Admin: 08/13/21 10:36 Dose: 5 mg Lisinopril (Lisinopril 10 Mg Tab) 10 mg PO DAILY [facility] Last Admin: 08/13/21 10:36 Dose: 10 mg Morphine Sulfate (Morphine 2 Mg/1 Ml Inj) 2 mg IV Q4H PRN PRN Reason: Pain, Moderate (4-6) Ondansetron HCl (Ondansetron 4 Mg/2 Ml Inj) 4 mg IV Q8H PRN PRN Reason: Nausea And Vomiting Oxycodone/Acetaminophen (Oxycodone /Acetaminophen 5-325mg Tab) 1 tab PO Q6H PRN PRN Reason: Pain, Moderate (4-6) Polyethylene Glycol (Polyethylene Glycol 3350 17 Gm Powder) 17 gm PO QDAY PRN PRN Reason: Constipation Rivaroxaban (Rivaroxaban 15 Mg Tab) 15 mg PO QDAY [facility] Last Admin: 08/13/21 10:36 Dose: 15 mg Sodium Chloride (Sodium Chloride 0.9% 10 Ml Flush Syringe) 10 ml IV BID [facility] Last Admin: 08/13/21 10:38 Dose: 10 ml Sodium Chloride (Sodium Chloride 0.9% 10 Ml Flush Syringe) 10 ml IV PRN PRN PRN Reason: LINE FLUSH Review of Systems Constitutional: fatigue, weakness Ears, nose, mouth and throat: no ear pain, no ear discharge, no tinnitis, no decreased hearing, no nose pain, no nasal congestion, no nasal discharge Cardiovascular: orthopnea, edema, lightheadedness, shortness of breath, dyspnea on exertion, leg edema, no chest pain Respiratory: cough, shortness of breath, dyspnea on exertion Gastrointestinal: no abdominal pain, no nausea, no vomiting, no diarrhea, no constipation, no change in bowel habits Genitourinary Male: no hematuria, no flank pain, no discharge, no urinary frequency, no urinary hesitancy Rectal: no pain, no incontinence, no bleeding, no itching Musculoskeletal: no neck stiffness, no neck pain, no shooting arm pain, no arm numbness/tingling, no low back pain Integumentary: no rash, no pruritis, no redness, no sores, no wounds, no jaundice Neurological: weakness, no head injury, no transient paralysis, no paralysis, no parathesias, no numbness, no seizures, no syncope Psychiatric: no anxiety, no memory loss, no change in sleep habits, no sleep disturbances, no insomnia, no hypersomnia, no change in appetite Endocrine: no cold intolerance, no heat intolerance, no polyphagia, no excessive thirst, no polydipsia, no polyuria, no nocturia Exam - Vital Signs Vital signs: Vital Signs Temp Pulse BP Pulse Ox 98.4 F 90 149/84 97 08/12/21 13:00 08/12/21 13:00 08/12/21 13:00 08/12/21 13:00 - General Appearance General appearance: well-developed, obese, fatigue EENT: ATNC, PERRL, hearing intact, vision intact Neck: Present: neck supple, trachea midline Respiratory: Decreased Breath Sounds Heart: S1S2 Gastrointestinal: Present: normoactive bowel sounds Integumentary: warm and dry Neurologic: alert and oriented x3 Musculoskeletal: Present: other (2-3+ edema to BLE) Results - Lab Results 08/13/21 05:48 08/13/21 05:48 Most recent lab results Calcium 8.7 mg/dL (8.4-10.2) 08/13/21 05:48 Assessment and Plan Assessment: ESRD on hemodialysis Hypertension Diabetes Mellitus CHF Volume overload Plan: Hemodialysis today for UF and clearance Will need hemodialysis again tomorrow given volume overload, likely daily HD Has AVF to right upper arm Fluid restriction of 1 liter per day Renally dose medications Strict I/O's daily Assess dialysis needs daily Patient's outpatient's solderer torch is Dr. Blankenship and goes to [facility] dialysis clinic on M.W. Plan of care reviewed by Dr. Nieves
--- NOTE | 2021-08-13 10:42 | Electrocardiograph Report ---
[facility] Test Date: 2021-08-12 Test Time: 16:35:00 Pat Name: BASILIO STANLEY Department: Room: A464 1 Gender: M Administrative Services Assistant: LUCINA : 1950 Requested By: MARCOS CUEVA Order Number: [id number] Reading MD: Migel Conner Measurements Intervals [place] Rate: 79 P: [place]: QRS: 82 QRSD: 94 T: 131 QT: 405 QTc: 461 Interpretive Statements Afib/flut and V-paced complexes Nonspecific T abnormalities, lateral leads No previous ECG available for comparison Electronically Signed On 08-13-2021 10:41:59 EDT by Migel Conner
--- NOTE | 2021-08-13 10:43 | Electrocardiograph Report ---
[facility] Test Date: 2021-08-12 Test Time: 18:16:06 Pat Name: BASILIO STANLEY Department: Room: A464 1 Gender: M Counseling Services Director: MAX : 1950 Requested By: BINDU COOPER Order Number: [id number] Reading MD: Migel Conner Measurements Intervals [place] Rate: 93 P: [place]: QRS: 91 QRSD: 91 T: 172 QT: 383 QTc: 477 Interpretive Statements Atrial fibrillation Ventricular premature complex Nonspecific T abnormalities, lateral leads Compared to ECG 08/12/2021 16:35:00 Ventricular premature complex(es) now present Right-axis deviation now present Ventricular-paced complex(es) or rhythm no longer present T-wave abnormality still present Electronically Signed On 08-13-2021 10:42:25 EDT by Migel Conner
[2021-08-13 14:37] LABS: Hepatitis B Surface Antigen Non-Reactive (Negative); Hepatitis C Virus Antibody Non-Reactive (NonReactive)
[2021-08-13] MEDS: oxyCODONE /ACETAMINOPHEN 5-325MG TAB PO PRN (21:59)
[2021-08-14 05:32] LABS: Calcium 8.5 mg/dL (8.4-10.2)
--- NOTE | 2021-08-14 07:33 | Progress Note ---
Assessment and Plan - Patient Problems (1) Venous insufficiency of lower extremity Current Visit: Yes Status: Chronic Qualifiers: Laterality: bilateral Qualified Code(s): I87.2 - Venous insufficiency (chronic) (peripheral) Plan to address problem: Swelling of both lower legs probably secondary to venous insufficiency Will get arterial duplex scan and venous duplex scan Vascular surgery consult requested (2) Volume overload Current Visit: Yes Status: Acute Plan to address problem: Needs emergent hemodialysis Nephrology consulted (3) Acute exacerbation of CHF (congestive heart failure) Current Visit: Yes Status: Acute Qualifiers: Heart failure type: combined systolic and diastolic Qualified Code(s): I50.43 - Acute on chronic combined systolic (congestive) and diastolic (congestive) heart failure Plan to address problem: Continue Lasix Patient does not make any urine output Needs increase ultrafiltration Echocardiogram for ejection fraction and valve function and wall motion abnormalities (4) Hypertension Current Visit: Yes Status: Chronic Qualifiers: Hypertension type: primary hypertension Qualified Code(s): I10 - Essential (primary) hypertension Plan to address problem: Continue antihypertensives and adjust medications (5) T2DM (type 2 diabetes mellitus) Current Visit: Yes Status: Chronic Qualifiers: Diabetes mellitus chcf insulin use: unspecified chcf insulin use status Plan to address problem: For unknown reasons patient is still on metformin Metformin discontinued Continue Januvia and coverage Check hemoglobin A1c (6) Elevated troponin Current Visit: Yes Status: Chronic Plan to address problem: Troponin leak NSTEMI 2 (7) Elevated brain natriuretic peptide (BNP) level Current Visit: Yes Status: Acute Plan to address problem: Patient on Lasix Needs increased ultrafiltration (8) Anticoagulation adequate Current Visit: Yes Status: Chronic Plan to address problem: On Xarelto for arrhythmias (9) DVT prophylaxis Current Visit: No Status: Acute Plan to address problem: On anticoagulation GI prophylaxis (10) Advance care planning Current Visit: Yes Status: Acute Plan to address problem: Disease education conducted, care plan discussed, diagnosis discussed, prognosis discussed. Patient is full code. Patient acknowledges understanding and agreement with care plan. +30 minutes. Subjective Date of service: 08/13/21 Principal diagnosis: Shortness of breath and swelling of both lower legs Interval history: 70-year-old male with history of hypertension, end-stage renal disease and type 2 diabetes comes in for severe weakness difficulty walking. Also increasing shortness of breath. Complains of worsening bilateral lower extremity edema. H istory of CHF and pacemaker and defibrillator and gout. Admits to hemodialysis today. Patient takes Lasix twice a day for his CHF and bilateral lower extremity edema. And does not make any urine output. Orthopnea present. No chest pain. Shortness of breath on minimal exertion. Has class IV NYHA symptoms.' August 13, 2021 Patient is concerned about the swelling in both his lower extremities Patient has severe stasis dermatitis We will get arterial duplex scan and vascular surgery consult if necessary Objective - Constitutional Vitals: Vital Signs - 12hr 08/13/21 08/13/21 08/14/21 19:35 21:58 00:00 Temperature 98.2 F Pulse Rate 84 85 Respiratory 18 Rate Blood Pressure 128/55 137/69 Blood Pressure [Left] O2 Sat by Pulse 94 Oximetry O2 Sat by Pulse 98 Oximetry [ Bilateral Throughout] 08/14/21 00:02 Temperature 98.9 F Pulse Rate 74 Respiratory 18 Rate Blood Pressure Blood Pressure 111/47 [Left] O2 Sat by Pulse 93 Oximetry O2 Sat by Pulse Oximetry [ Bilateral Throughout] General appearance: Present: no acute distress, well-nourished - EENT Eyes: PERRL, EOM intact ENT: hearing intact, clear oral mucosa Ears: bilateral: normal - Neck Neck: supple, normal ROM - Respiratory Respiratory effort: normal Respiratory: bilateral: CTA - Breasts Breasts: normal - Cardiovascular Heart rate: 78 Rhythm: regular Heart Sounds: Present: S1 & S2. Absent: gallop, rub Extremities: pulses intact, No edema, normal color, Full ROM, abnormal (Swelling of both lower legs with stasis dermatitis) Extremity abnormal: pulses diminished, other (Swelling of both lower extremities with stasis dermatitis) - Gastrointestinal General gastrointestinal: Present: soft, non-tender, non-distended, normal bowel sounds - Genitourinary Male genitourinary: normal - Integumentary Integumentary: clear, warm, dry - Musculoskeletal Musculoskeletal: 1, strength equal bilaterally - Neurologic Neurologic: moves all extremities - Psychiatric Psychiatric: memory intact, appropriate mood/affect, intact judgment & insight - Labs CBC & Chem 7: 08/13/21 05:48 08/14/21 04:50 Labs: Abnormal lab results 08/13/21 08/13/21 08/14/21 Range/Units 12:15 22:48 04:50 BUN 40 H (9-20) mg/dL Creatinine 7.3 H (0.8-1.3) mg/dL POC Glucose 115 H 120 H (70-105) mg/dL HEART Score - HEART Score Age: > 65 Risk factors: > 3 risk factors or hx of atherosclerotic disease Troponin: Troponin T 0.092 ng/mL (0.00-0.029) H 08/12/21 Unknown Troponin: 1-3x normal limit - Critical Actions Critical Actions: 4-6 pts:12-16.6% risk of adverse cardiac event. Should be admitted
[2021-08-14] MEDS: INSULIN LISPRO 100 UNIT/ML SUB-Q SCH ×4 (08:20→21:57)
--- NOTE | 2021-08-14 12:36 | Progress Note ---
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 Blankenship and goes to [facility] dialysis clinic on [address] Plan of care reviewed by Dr. Nieves Subjective Date of service: 08/14/21 Principal diagnosis: Shortness of breath and swelling of both lower legs Interval history: Patient undergoing HD again today Objective - Vital Signs Vital signs: Vital Signs - 12hr 08/14/21 08/14/21 08/14/21 07:44 08:21 09:35 Temperature 98.5 F 98.7 F Pulse Rate 71 75 Respiratory 16 20 Rate Blood Pressure 105/42 124/65 O2 Sat by Pulse 94 94 Oximetry O2 Sat by Pulse 98 Oximetry [ Bilateral Throughout] 08/14/21 08/14/21 08/14/21 09:50 10:00 10:15 Temperature Pulse Rate 79 80 71 Respiratory Rate Blood Pressure 110/50 104/55 106/48 O2 Sat by Pulse Oximetry O2 Sat by Pulse Oximetry [ Bilateral Throughout] 08/14/21 08/14/21 08/14/21 10:30 10:45 11:00 Temperature Pulse Rate 71 72 72 Respiratory Rate Blood Pressure 115/53 115/51 131/45 O2 Sat by Pulse Oximetry O2 Sat by Pulse Oximetry [ Bilateral Throughout] 08/14/21 08/14/21 11:15 11:30 Temperature Pulse Rate 72 70 Respiratory Rate Blood Pressure 131/45 116/46 O2 Sat by Pulse Oximetry O2 Sat by Pulse Oximetry [ Bilateral Throughout] - Lab 08/13/21 05:48 08/14/21 04:50 Most recent lab results Calcium 8.5 mg/dL (8.4-10.2) 08/14/21 04:50 Phosphorus 4.20 mg/dL (2.5-4.5) 08/14/21 04:50 Medications & Allergies - Medications Allergies/Adverse Reactions: Allergies nifedipine [From Procardia] Allergy (Verified 08/13/21 14:33) muscle spasms Home Medications: Home Medications Medication Instructions Recorded Confirmed Last Taken Type Furosemide [Lasix TAB] 80 mg PO BID 11/08/13/21 04/25/18 09:00 History Sitagliptin Phosphate [Januvia] 100 mg PO DAILY 02/12/18 08/13/21 04/25/18 09:00 History allopurinoL [Allopurinol] 100 mg PO DAILY 02/12/18 08/13/21 04/25/18 09:00 History Apixaban [Eliquis] 5 mg PO Q12H 08/13/21 08/13/21 Unknown History Ascorbic Acid [Vitamin C] 500 mg PO QDAY 08/13/21 08/13/21 Unknown History Cholecalciferol (Vitamin D3) 5,000 unit PO QDAY 08/13/21 08/13/21 Unknown History [Vitamin D3 5,000 UNIT] Ferrous Sulfate [Iron 325 MG] 325 mg PO QDAY 08/13/21 08/13/21 Unknown History Folic Acid 1 mg PO QDAY 08/13/21 08/13/21 Unknown History Magnesium 250 mg PO QDAY 08/13/21 08/13/21 Unknown History Midodrine [Proamatine] 10 mg PO BID 08/13/21 08/13/21 Unknown History Pyridoxine HCl [Vitamin B-6 100MG 100 mg PO DAILY 08/13/21 08/13/21 Unknown History TAB] Active Medications: Generic Name Dose Route Start Last Admin Trade Name Freq PRN Reason Stop Dose Admin Acetaminophen 650 mg 08/12/21 21:30 Acetaminophen 325 Mg Tab PO Q4H PRN Pain MILD(1-3)/Fever >100.5/CHANG Allopurinol 100 mg 08/12/21 22:00 08/13/21 10:36 Allopurinol 100 Mg Tab PO 100 mg DAILY ARSLAN Administration Carvedilol 3.125 mg 08/12/21 22:00 08/13/21 21:58 Carvedilol 3.125 Mg Tab PO 3.125 mg BID ARSLAN Administration Hydromorphone HCl 0.5 mg 08/12/21 21:30 Hydromorphone 0.5 Mg/0.5 Ml Inj IV Q3H PRN Pain , Severe (7-10) Insulin Human Lispro 0 unit 08/13/21 07:30 08/14/21 11:58 Insulin Lispro 100 Unit/Ml SUB-Q Not Given [facility] Protocol Linagliptin 5 mg 08/13/21 10:00 08/13/21 10:36 Linagliptin 5 Mg Tab PO 5 mg QDAY ARSLAN Administration Lisinopril 10 mg 08/12/21 21:00 08/13/21 10:36 Lisinopril 10 Mg Tab PO 10 mg DAILY ARSLAN Administration Morphine Sulfate 2 mg 08/12/21 21:30 Morphine 2 Mg/1 Ml Inj IV Q4H PRN Pain, Moderate (4-6) Ondansetron HCl 4 mg 08/12/21 21:30 Ondansetron 4 Mg/2 Ml Inj IV Q8H PRN Nausea And Vomiting Oxycodone/Acetaminophen 1 tab 08/12/21 21:30 08/13/21 21:59 Oxycodone /Acetaminophen 5-325mg Tab PO 1 tab Q6H PRN Administration Pain, Moderate (4-6) Polyethylene Glycol 17 gm 08/12/21 20:55 Polyethylene Glycol 3350 17 Gm Powder PO QDAY PRN Constipation Rivaroxaban 15 mg 08/13/21 10:00 08/13/21 10:36 Rivaroxaban 15 Mg Tab PO 15 mg QDAY ARSLAN Administration Sodium Chloride 10 ml 08/12/21 22:00 08/13/21 22:00 Sodium Chloride 0.9% 10 Ml Flush Syringe IV 10 ml BID ARSLAN Administration Sodium Chloride 10 ml 08/12/21 21:30 Sodium Chloride 0.9% 10 Ml Flush Syringe IV PRN PRN LINE FLUSH
--- NOTE | 2021-08-14 15:41 | Vascular Lab Report ---
DUPLEX DOPPLER LOWER EXTREMITY VEINS, BILATERAL INDICATION: Venous insufficiency. TECHNIQUE: Duplex doppler imaging was performed through the veins of both lower extremities using venous sulma vin and other maneuvers. COMPARISON: No relevant prior imaging study available. FINDINGS: Right Common femoral vein: Negative. Right Superficial femoral vein: Negative. Right Popliteal vein: Negative. Right Calf veins: Negative. Left Common femoral vein: Negative. Left Superficial femoral vein: Negative. Left Popliteal vein: Negative. Left Calf veins: Negative. Additional findings: There was venous reflux in the deep venous systems bilaterally overall greatest on the left where there are segments measuring over 2 seconds namely involving the left common femora l and superficial femoral segments. IMPRESSION: 1. No sonographic evidence for DVT in either lower extremity. 2. Diffuse fatty venous reflux bilaterally, greatest on the left. Signer Name: John Mcdonald MD Signed: 08/14/2021 3:35 PM Workstation Name: [id number]
--- NOTE | 2021-08-14 15:49 | Vascular Lab Report ---
DUPLEX DOPPLER LOWER EXTREMITY ARTERIAL, BILATERAL INDICATION: Swelling of both lower extremities, rule out PAD. TECHNIQUE: Arterial duplex examination of both lower extremities performed using B-mode, color flow and spectral Doppler assessment. FINDINGS: RIGHT: Common Femoral Artery: PSV 165 cm/sec. Triphasic waveform. Proximal SFA: PSV 141 cm/sec. Triphasic waveform. Mid SFA: PSV 132 cm/sec. Triphasic waveform. Distal SFA: PSV 166 cm/sec. Triphasic waveform. Popliteal artery: PSV 96 cm/sec. Triphasic waveform. Posterior tibial artery: PSV 97 cm/sec. Triphasic waveform. Dorsalis Pedis Artery: PSV 84 cm/sec. Triphasic waveform. LEFT: Common Femoral Artery: PSV 156 cm/sec. Triphasic waveform. Proximal SFA: PSV 118 cm/sec. Triphasic waveform. Mid SFA: PSV 131 cm/sec. Triphasic waveform. Distal SFA: PSV 116 cm/sec. Triphasic waveform. Popliteal artery: PSV 128 cm/sec. Triphasic waveform. Posterior tibial artery: PSV 74 cm/sec. Triphasic waveform. Dorsalis Pedis Artery: PSV 38 cm/sec. Triphasic waveform. IMPRESSION: 1. No significant lower extremity peripheral artery disease. Doppler Waveform: * Triphasic is normal. * Biphasic is abnormal if clear transition from triphasic signal along vascular tree. * Monophasic is abnormal. Signer Name: John Mcdonald MD Signed: 08/14/2021 3:44 PM Workstation Name: [id number]
--- NOTE | 2021-08-14 17:00 | Discharge Summary ---
Providers - Providers Date of Admission: 08/12/21 21:56 Date of discharge: 08/16/21 Attending physician: BINDU COOPRE 08/12/21 21:30 Consult to Physician [CONS] Routine Comment: Consulting Provider: CHELSEY STOREY Physician Instructions: Reason For Exam: ESRD on HD 08/14/21 07:38 Consult to Physician [CONS] Routine Comment: Consulting Provider: SHEKHAR KU Physician Instructions: Reason For Exam: Bilateral lower extremity swelling,PAD, venous ins 08/14/21 09:24 Physical Therapy Evaluation and Treat [CONS] Routine Comment: Reason For Exam: gait evaluation Primary care physician: [employer] Hospitalization Condition: Stable Pertinent studies: Duplex venous scan Doppler both lower extremities No acute sonographic evidence for DVT in either lower extremity Diffuse fatty venous reflux bilaterally greatest on the left. Duplex scan of both lower extremities arterial No significant lower extremity peripheral artery disease Disposition: 01 HOME / SELF CARE / HOMELESS Time spent for discharge: 35 minutes - Discharge Diagnoses (1) Venous insufficiency of lower extremity Status: Chronic Qualifiers: Laterality: bilateral Qualified Code(s): I87.2 - Venous insufficiency (chronic) (peripheral) (2) Volume overload Status: Acute (3) Acute exacerbation of CHF (congestive heart failure) Status: Acute Qualifiers: Heart failure type: combined systolic and diastolic Qualified Code(s): I50.43 - Acute on chronic combined systolic (congestive) and diastolic (congestive) heart failure (4) Hypertension Status: Chronic Qualifiers: Hypertension type: primary hypertension Qualified Code(s): I10 - Essential (primary) hypertension (5) T2DM (type 2 diabetes mellitus) Status: Chronic Qualifiers: Diabetes mellitus detention insulin use: unspecified 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 (6) Elevated troponin Status: Chronic (7) Elevated brain natriuretic peptide (BNP) level Status: Acute (8) Anticoagulation adequate Status: Chronic (9) DVT prophylaxis Status: Acute (10) Advance care planning Status: Acute Exam - Constitutional Vitals: Temp Pulse Resp BP Pulse Ox 98.0 F 79 18 114/37 98 08/14/21 15:43 08/14/21 15:43 08/14/21 15:43 08/14/21 15:43 08/14/21 15:43 Plan Follow up with: JOHN ALONZO MD [Primary Care Provider] - 7 Days TONIE MARINO MD [Staff Physician] - 7 Days JACQUES GARCIA MD [Staff Physician] - 7 Days LETA VILLALOBOS MD [Staff Physician] - 7 Days Prescriptions: Oxycodone HCl/Acetaminophen [Percocet 7.5/325 mg] 1 each PO Q8H PRN #40 PRN Reason: Pain
[2021-08-14] MEDS: LINAGLIPTIN 5 MG TAB PO SCH (18:04)
[2021-08-14] MEDS: RIVAROXABAN 15 MG TAB PO SCH (18:04)
[2021-08-14] MEDS: allopurinoL 100 MG TAB PO SCH (18:05)
[2021-08-14] MEDS: LISINOPRIL 10 MG TAB PO SCH (18:05)
[2021-08-14] MEDS: carvediloL 3.125 MG TAB PO SCH ×2 (18:05→21:27)
[2021-08-14] MEDS: oxyCODONE /ACETAMINOPHEN 5-325MG TAB PO PRN (18:10)
[2021-08-15] MEDS: oxyCODONE /ACETAMINOPHEN 5-325MG TAB PO PRN ×3 (00:12→20:16)
[2021-08-15] MEDS: INSULIN LISPRO 100 UNIT/ML SUB-Q SCH ×4 (08:00→21:56)
--- NOTE | 2021-08-15 09:07 | Progress Note ---
Assessment and Plan ESRD on hemodialysis Hypertension Diabetes Mellitus CHF Volume overload Plan: no indication of HD today Has AVF to right upper arm Fluid restriction of 1 liter per day Renally dose medications Strict I/O's daily Assess dialysis needs daily Patient's outpatient's tree warden is Dr. Blankenship and goes to [facility] dialysis clinic on [address] Subjective Date of service: 08/15/21 Principal diagnosis: Shortness of breath and swelling of both lower legs Interval history: tolerated HD yesterday Objective - Vital Signs Vital signs: Vital Signs - 12hr 08/14/21 08/15/21 08/15/21 21:27 01:22 04:21 Temperature 98.4 F Pulse Rate 71 70 Respiratory 18 Rate Blood Pressure 118/51 121/46 O2 Sat by Pulse 97 96 Oximetry 08/15/21 07:42 Temperature 98.0 F Pulse Rate 83 Respiratory 18 Rate Blood Pressure 127/38 O2 Sat by Pulse 96 Oximetry - Lab 08/13/21 05:48 08/15/21 04:09 Most recent lab results Calcium 9.0 mg/dL (8.4-10.2) 08/15/21 04:09 Phosphorus 4.20 mg/dL (2.5-4.5) 08/14/21 04:50 Medications & Allergies - Medications Allergies/Adverse Reactions: Allergies nifedipine [From Procardia] Allergy (Verified 08/13/21 14:33) muscle spasms Home Medications: Home Medications Medication Instructions Recorded Confirmed Last Taken Type Furosemide [Lasix TAB] 80 mg PO BID 02/12/18 08/13/21 04/25/18 09:00 History Sitagliptin Phosphate [Januvia] 100 mg PO DAILY 02/12/18 08/13/21 04/25/18 09:00 History allopurinoL [Allopurinol] 100 mg PO DAILY 02/12/18 08/13/21 04/25/18 09:00 History Apixaban [Eliquis] 5 mg PO Q12H 08/13/21 08/13/21 Unknown History Ascorbic Acid [Vitamin C] 500 mg PO QDAY 08/13/21 08/13/21 Unknown History Cholecalciferol (Vitamin D3) 5,000 unit PO QDAY 08/13/21 08/13/21 Unknown History [Vitamin D3 5,000 UNIT] Ferrous Sulfate [Iron 325 MG] 325 mg PO QDAY 08/13/21 08/13/21 Unknown History Folic Acid 1 mg PO QDAY 08/13/21 08/13/21 Unknown History Magnesium 250 mg PO QDAY 08/13/21 08/13/21 Unknown History Midodrine [Proamatine] 10 mg PO BID 08/13/21 08/13/21 Unknown History Pyridoxine HCl [Vitamin B-6 100MG 100 mg PO DAILY 08/13/21 08/13/21 Unknown History TAB] Active Medications: Generic Name Dose Route Start Last Admin Trade Name Freq PRN Reason Stop Dose Admin Acetaminophen 650 mg 08/12/21 21:30 Acetaminophen 325 Mg Tab PO Q4H PRN Pain MILD(1-3)/Fever >100.5/CHANG Allopurinol 100 mg 08/12/21 22:00 08/14/21 18:05 Allopurinol 100 Mg Tab PO 100 mg DAILY ARSLAN Administration Carvedilol 3.125 mg 08/12/21 22:00 08/14/21 21:27 Carvedilol 3.125 Mg Tab PO 3.125 mg BID ARSLAN Administration Hydromorphone HCl 0.5 mg 08/12/21 21:30 Hydromorphone 0.5 Mg/0.5 Ml Inj IV Q3H PRN Pain , Severe (7-10) Insulin Human Lispro 0 unit 08/13/21 07:30 08/14/21 21:57 Insulin Lispro 100 Unit/Ml SUB-Q Not Given ACHS [facility] Protocol Linagliptin 5 mg 08/13/21 10:00 08/14/21 18:04 Linagliptin 5 Mg Tab PO 5 mg QDAY ARSLAN Administration Lisinopril 10 mg 08/12/21 21:00 08/14/21 18:05 Lisinopril 10 Mg Tab PO 10 mg DAILY ARSLAN Administration Morphine Sulfate 2 mg 08/12/21 21:30 Morphine 2 Mg/1 Ml Inj IV Q4H PRN Pain, Moderate (4-6) Ondansetron HCl 4 mg 08/12/21 21:30 Ondansetron 4 Mg/2 Ml Inj IV Q8H PRN Nausea And Vomiting Oxycodone/Acetaminophen 1 tab 08/12/21 21:30 08/15/21 00:12 Oxycodone /Acetaminophen 5-325mg Tab PO 1 tab Q6H PRN Administration Pain, Moderate (4-6) Polyethylene Glycol 17 gm 08/12/21 20:55 Polyethylene Glycol 3350 17 Gm Powder PO QDAY PRN Constipation Rivaroxaban 15 mg 08/13/21 10:00 08/14/21 18:04 Rivaroxaban 15 Mg Tab PO 15 mg QDAY ARSLAN Administration Sodium Chloride 10 ml 08/12/21 22:00 08/14/21 21:28 Sodium Chloride 0.9% 10 Ml Flush Syringe IV 10 ml BID ARSLAN Administration Sodium Chloride 10 ml 08/12/21 21:30 Sodium Chloride 0.9% 10 Ml Flush Syringe IV PRN PRN LINE FLUSH
[2021-08-15] MEDS: RIVAROXABAN 15 MG TAB PO SCH (10:15)
[2021-08-15] MEDS: LINAGLIPTIN 5 MG TAB PO SCH (10:15)
[2021-08-15] MEDS: allopurinoL 100 MG TAB PO SCH (10:16)
[2021-08-15] MEDS: carvediloL 3.125 MG TAB PO SCH ×2 (10:16→21:55)
[2021-08-15] MEDS: LISINOPRIL 10 MG TAB PO SCH (10:16)
--- NOTE | 2021-08-15 10:31 | XRay Report ---
Bilateral knees-6 total views INDICATION: Bilateral severe knee painbi. COMPARISON: None available. IMPRESSION: No acute osseous abnormality. Normal alignment. Severe tricompartmental DJD with bilate ral suprapatellar pouch osteochondral bodies a largest of which is on the left and measures 4.1 x 2.2 cm. Soft tissues are unremarkable. Signer Name: John Mcdonald MD Signed: 08/15/2021 10:26 AM Workstation Name: [id number]
--- NOTE | 2021-08-15 14:24 | Consultation ---
History of Present Illness - HPI Consult date: 08/15/21 Consult reason: joint pain History of present illness: 70 y/o male with long complicated medical hx, c/o bilateral knee pain and swelling, denies any recent falls..states he's ambulatory prior to admission.. Past History Past Medical History: anemia, diabetes, dialysis, ESRD, heart failure, hypertension Past Surgical History: Other (Right AVF placement) Social history: no significant social history Family history: no significant family history Medications and Allergies Allergies Allergy/AdvReac Type Severity Reaction Status Date / Time nifedipine [From Procardia] Allergy muscle Verified 08/13/21 14:33 spasms Home Medications Medication Instructions Recorded Confirmed Last Taken Type Furosemide [Lasix TAB] 80 mg PO BID 02/12/18 08/13/21 04/25/18 09:00 History Sitagliptin Phosphate [Januvia] 100 mg PO DAILY 02/12/18 08/13/21 04/25/18 09:00 History allopurinoL [Allopurinol] 100 mg PO DAILY 02/12/18 08/13/21 04/25/18 09:00 History Apixaban [Eliquis] 5 mg PO Q12H 08/13/21 08/13/21 Unknown History Ascorbic Acid [Vitamin C] 500 mg PO QDAY 08/13/21 08/13/21 Unknown History Cholecalciferol (Vitamin D3) 5,000 unit PO QDAY 08/13/21 08/13/21 Unknown History [Vitamin D3 5,000 UNIT] Ferrous Sulfate [Iron 325 MG] 325 mg PO QDAY 08/13/21 08/13/21 Unknown History Folic Acid 1 mg PO QDAY 08/13/21 08/13/21 Unknown History Magnesium 250 mg PO QDAY 08/13/21 08/13/21 Unknown History Midodrine [Proamatine] 10 mg PO BID 08/13/21 08/13/21 Unknown History Pyridoxine HCl [Vitamin B-6 100MG 100 mg PO DAILY 08/13/21 08/13/21 Unknown History TAB] Active Meds: Active Medications Acetaminophen (Acetaminophen 325 Mg Tab) 650 mg PO Q4H PRN PRN Reason: Pain MILD(1-3)/Fever >100.5/CHANG Allopurinol (Allopurinol 100 Mg Tab) 100 mg PO DAILY ARSLAN Last Admin: 06/02/22 10:16 Dose: 100 mg Carvedilol (Carvedilol 3.125 Mg Tab) 3.125 mg PO BID [facility] Last Admin: 08/15/21 10:16 Dose: 3.125 mg Hydromorphone HCl (Hydromorphone 0.5 Mg/0.5 Ml Inj) 0.5 mg IV Q3H PRN PRN Reason: Pain , Severe (7-10) Insulin Human Lispro (Insulin Lispro 100 Unit/Ml) 0 unit SUB-Q ACHS [facility]; Protocol Last Admin: 08/15/21 08:00 Dose: Not Given Linagliptin (Linagliptin 5 Mg Tab) 5 mg PO QDAY [facility] Last Admin: 08/15/21 10:15 Dose: 5 mg Lisinopril (Lisinopril 10 Mg Tab) 10 mg PO DAILY [facility] Last Admin: 08/15/21 10:16 Dose: 10 mg Morphine Sulfate (Morphine 2 Mg/1 Ml Inj) 2 mg IV Q4H PRN PRN Reason: Pain, Moderate (4-6) Ondansetron HCl (Ondansetron 4 Mg/2 Ml Inj) 4 mg IV Q8H PRN PRN Reason: Nausea And Vomiting Oxycodone/Acetaminophen (Oxycodone /Acetaminophen 5-325mg Tab) 1 tab PO Q6H PRN PRN Reason: Pain, Moderate (4-6) Last Admin: 08/15/21 10:12 Dose: 1 tab Polyethylene Glycol (Polyethylene Glycol 3350 17 Gm Powder) 17 gm PO QDAY PRN PRN Reason: Constipation Rivaroxaban (Rivaroxaban 15 Mg Tab) 15 mg PO QDAY [facility] Last Admin: 08/15/21 10:15 Dose: 15 mg Sodium Chloride (Sodium Chloride 0.9% 10 Ml Flush Syringe) 10 ml IV BID [facility] Last Admin: 08/15/21 10:18 Dose: 10 ml Sodium Chloride (Sodium Chloride 0.9% 10 Ml Flush Syringe) 10 ml IV PRN PRN PRN Reason: LINE FLUSH Physical Examination - Physical exam Narrative exam: BLE - knees - mild effusions, tender at joint lines, no redness/erythema noted, dec AROM... plain xrays both knees show severe OA changes involving all 3 compartments.... Eyes: PERRL ENT: Positive: clear oral mucosa Respiratory effort: normal Respiratory: bilateral: CTA Rhythm: regular Heart Sounds: Positive: S1 & S2 General gastrointestinal: Positive: soft, non-tender, non-distended, normal bowel sounds Integumentary: clear, warm, dry Neurologic: Positive: CNII-XII intact, moves all extremities, gait normal. Negative: focal deficits Assessment and Plan Severe OA both Knees recommend conservative mgmt due to multiple medical conditions, therefore offered intra-articular depomedrol injections...
--- NOTE | 2021-08-15 20:33 | Progress Note ---
Assessment and Plan - Patient Problems (1) Venous insufficiency of lower extremity Current Visit: Yes Status: Chronic Qualifiers: Laterality: bilateral Qualified Code(s): I87.2 - Venous insufficiency (chronic) (peripheral) Plan to address problem: Swelling of both lower legs probably secondary to venous insufficiency Will get arterial duplex scan and venous duplex scan Vascular surgery consult requested Duplex scan-venous No sonographic evidence for DVT in either lower extremity Diffuse fatty venous reflux bilaterally greater on the left (2) Volume overload Current Visit: Yes Status: Acute Plan to address problem: Needs emergent hemodialysis Nephrology consulted (3) Acute exacerbation of CHF (congestive heart failure) Current Visit: Yes Status: Acute Qualifiers: Heart failure type: combined systolic and diastolic Qualified Code(s): I50.43 - Acute on chronic combined systolic (congestive) and diastolic (congestive) heart failure Plan to address problem: Continue Lasix Patient does not make any urine output Needs increase ultrafiltration Echocardiogram for ejection fraction and valve function and wall motion abnormalities (4) Hypertension Current Visit: Yes Status: Chronic Qualifiers: Hypertension type: primary hypertension Qualified Code(s): I10 - Essential (primary) hypertension Plan to address problem: Continue antihypertensives and adjust medications (5) T2DM (type 2 diabetes mellitus) Current Visit: Yes Status: Chronic Qualifiers: Diabetes mellitus shelter insulin use: unspecified shelter insulin use status Plan to address problem: For unknown reasons patient is still on metformin Metformin discontinued Continue Januvia and coverage Check hemoglobin A1c (6) Elevated troponin Current Visit: Yes Status: Chronic Plan to address problem: Troponin leak NSTEMI 2 (7) Elevated brain natriuretic peptide (BNP) level Current Visit: Yes Status: Acute Plan to address problem: Patient on Lasix Needs increased ultrafiltration (8) Anticoagulation adequate Current Visit: Yes Status: Chronic Plan to address problem: On Xarelto for arrhythmias (9) DVT prophylaxis Current Visit: No Status: Acute Plan to address problem: On anticoagulation GI prophylaxis (10) Advance care planning Current Visit: Yes Status: Acute Plan to address problem: Disease education conducted, care plan discussed, diagnosis discussed, prognosis discussed. Patient is full code. Patient acknowledges understanding and agreement with care plan. +30 minutes. (11) Bilateral knee pain Current Visit: Yes Status: Chronic Qualifiers: Chronicity: unspecified Qualified Code(s): M25.561 - Pain in right knee; M25.562 - Pain in left knee Plan to address problem: Patient has bilateral knee pain and crepitus in both knees Patient wants to see orthopedic surgeon Subjective Date of service: 08/14/21 Principal diagnosis: Shortness of breath and swelling of both lower legs Interval history: 70-year-old male with history of hypertension, end-stage renal disease and type 2 diabetes comes in for severe weakness difficulty walking. Also increasing shortness of breath. Complains of worsening bilateral lower extremity edema. History of CHF and pacemaker and defibrillator and gout. Admits to hemodialysis today. Patient takes Lasix twice a day for his CHF and bilateral lower extremity edema. And does not make any urine output. Orthopnea present. No chest pain. Shortness of breath on minimal exertion. Has class IV NYHA symptom s.' August 13, 2021 Patient is concerned about the swelling in both his lower extremities Patient has severe stasis dermatitis We will get arterial duplex scan and vascular surgery consult if necessary Objective - Constitutional Vitals: Vital Signs - 12hr 08/15/21 08/15/21 08/15/21 10:16 11:12 11:44 Temperature 98.0 F Pulse Rate 83 77 Respiratory 18 18 Rate Blood Pressure 137/98 Blood Pressure 105/45 [Left] O2 Sat by Pulse 100 Oximetry 08/15/21 08/15/21 08/15/21 13:00 15:51 19:49 Temperature 98.3 F 99.4 F Pulse Rate 78 73 Respiratory 16 20 Rate Blood Pressure 132/53 128/54 Blood Pressure [Left] O2 Sat by Pulse 97 93 94 Oximetry General appearance: Present: no acute distress, well-nourished - EENT Eyes: PERRL, EOM intact ENT: hearing intact, clear oral mucosa Ears: bilateral: normal - Neck Neck: supple, normal ROM - Respiratory Respiratory effort: normal Respiratory: bilateral: CTA - Breasts Breasts: normal - Cardiovascular Rhythm: regular Heart Sounds: Present: S1 & S2. Absent: gallop, rub Extremities: pulses intact, No edema, normal color, Full ROM - Gastrointestinal General gastrointestinal: Present: soft, non-tender, non-distended, normal bowel sounds - Genitourinary Male genitourinary: normal - Integumentary Integumentary: clear, warm, dry - Musculoskeletal Musculoskeletal: 1, strength equal bilaterally - Neurologic Neurologic: moves all extremities - Psychiatric Psychiatric: memory intact, appropriate mood/affect, intact judgment & insight - Labs CBC & Chem 7: 08/13/21 05:48 08/15/21 04:09 Labs: Abnormal lab results 08/15/21 Range/Units 04:09 BUN 24 H (9-20) mg/dL Creatinine 5.6 H (0.8-1.3) mg/dL HEART Score - HEART Score Age: > 65 Risk factors: > 3 risk factors or hx of atherosclerotic disease Troponin: Troponin T 0.092 ng/mL (0.00-0.029) H 08/12/21 Unknown Troponin: 1-3x normal limit - Critical Actions Critical Actions: 4-6 pts:12-16.6% risk of adverse cardiac event. Should be admitted
--- NOTE | 2021-08-15 20:51 | Progress Note ---
Assessment and Plan - Patient Problems (1) Venous insufficiency of lower extremity Current Visit: Yes Status: Chronic Qualifiers: Laterality: bilateral Qualified Code(s): I87.2 - Venous insufficiency (chronic) (peripheral) Plan to address problem: Swelling of both lower legs probably secondary to venous insufficiency Will get arterial duplex scan and venous duplex scan Vascular surgery consult requested Duplex scan-venous No sonographic evidence for DVT in either lower extremity Diffuse fatty venous reflux bilaterally greater on the left (2) Volume overload Current Visit: Yes Status: Acute Plan to address problem: Needs emergent hemodialysis Nephrology consulted (3) Acute exacerbation of CHF (congestive heart failure) Current Visit: Yes Status: Acute Qualifiers: Heart failure type: combined systolic and diastolic Qualified Code(s): I50.43 - Acute on chronic combined systolic (congestive) and diastolic (congestive) heart failure Plan to address problem: Continue Lasix Patient does not make any urine output Needs increase ultrafiltration Echocardiogram for ejection fraction and valve function and wall motion abnormalities (4) Hypertension Current Visit: Yes Status: Chronic Qualifiers: Hypertension type: primary hypertension Qualified Code(s): I10 - Essential (primary) hypertension Plan to address problem: Continue antihypertensives and adjust medications (5) T2DM (type 2 diabetes mellitus) Current Visit: Yes Status: Chronic Qualifiers: 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 Plan to address problem: For unknown reasons patient is still on metformin Metformin discontinued Continue Januvia and coverage Check hemoglobin A1c (6) Elevated troponin Current Visit: Yes Status: Chronic Plan to address problem: Troponin leak NSTEMI 2 (7) Elevated brain natriuretic peptide (BNP) level Current Visit: Yes Status: Acute Plan to address problem: Patient on Lasix Needs increased ultrafiltration (8) Anticoagulation adequate Current Visit: Yes Status: Chronic Plan to address problem: On Xarelto for arrhythmias (9) DVT prophylaxis Current Visit: No Status: Acute Plan to address problem: On anticoagulation GI prophylaxis (10) Advance care planning Current Visit: Yes Status: Acute Plan to address problem: Disease education conducted, care plan discussed, diagnosis discussed, prognosis discussed. Patient is full code. Patient acknowledges understanding and agreement with care plan. +30 minutes. Subjective Date of service: 08/14/21 Principal diagnosis: Shortness of breath and swelling of both lower legs Interval history: 70-year-old male with history of hypertension, end-stage renal disease and type 2 diabetes comes in for severe weakness difficulty walking. Also increasing shortness of breath. Complains of worsening bilateral lower extremity edema. History of CHF and pacemaker and defibrillator and gout. Admits to hemodialysis today. Patient takes Lasix twice a day for his CHF and bilateral lower extremity edema. And does not make any urine output. Orthopnea present. No chest pain. Shortness of breath on minimal exertion. Has class IV NYHA symptoms.' August 13, 2021 Patient is concerned about the swelling in both his lower extremities Patient has severe stasis dermatitis We will get arterial duplex scan and vascular surgery consult if necessary 08/14/2021 Arterial duplex scan venous duplex scan negative Venous insufficiency present Complains of bilateral knee pain Wants to see orthopedic surgeon Objective - Constitutional Vitals: Vital Signs - 12hr 08/15/21 08/15/21 08/15/21 10:16 11:12 11:44 Temperature 98.0 F Pulse Rate 83 77 Respiratory 18 18 Rate Blood Pressure 137/98 Blood Pressure 105/45 [Left] O2 Sat by Pulse 100 Oximetry 08/15/21 08/15/21 08/15/21 13:00 15:51 19:49 Temperature 98.3 F 99.4 F Pulse Rate 78 73 Respiratory 16 20 Rate Blood Pressure 132/53 128/54 Blood Pressure [Left] O2 Sat by Pulse 97 93 94 Oximetry General appearance: Present: no acute distress, well-nourished - EENT Eyes: PERRL, EOM intact ENT: hearing intact, clear oral mucosa Ears: bilateral: normal - Neck Neck: supple, normal ROM - Respiratory Respiratory effort: normal Respiratory: bilateral: CTA - Breasts Breasts: normal - Cardiovascular Heart rate: 78 Rhythm: regular Heart Sounds: Present: S1 & S2. Absent: gallop, rub Extremities: pulses intact, No edema, normal color, Full ROM - Gastrointestinal General gastrointestinal: Present: soft, non-tender, non-distended, normal bowel sounds - Genitourinary Male genitourinary: normal - Integumentary Integumentary: clear, warm, dry - Musculoskeletal Musculoskeletal: 1, strength equal bilaterally - Neurologic Neurologic: moves all extremities - Psychiatric Psychiatric: memory intact, appropriate mood/affect, intact judgment & insight - Labs CBC & Chem 7: 08/13/21 05:48 08/15/21 04:09 Labs: Abnormal lab results 08/15/21 Range/Units 04:09 BUN 24 H (9-20) mg/dL Creatinine 5.6 H (0.8-1.3) mg/dL HEART Score - HEART Score Age: > 65 Risk factors: > 3 risk factors or hx of atherosclerotic disease Troponin: Troponin T 0.092 ng/mL (0.00-0.029) H 08/12/21 Unknown Troponin: 1-3x normal limit - Critical Actions Critical Actions: 4-6 pts:12-16.6% risk of adverse cardiac event. Should be admitted
[2021-08-16] MEDS: INSULIN LISPRO 100 UNIT/ML SUB-Q SCH ×3 (07:18→15:38)
--- NOTE | 2021-08-16 09:42 | Progress Note ---
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 and goes to [facility] dialysis clinic on [address] Subjective Date of service: 08/16/21 Principal diagnosis: Shortness of breath and swelling of both lower legs Interval history: no overnight events Objective - Vital Signs Vital signs: Vital Signs - 12hr 08/15/21 08/15/21 08/16/21 21:55 23:07 01:00 Temperature 98.3 F Pulse Rate 82 82 Respiratory 20 Rate Blood Pressure 139/53 149/74 O2 Sat by Pulse 97 97 Oximetry 08/16/21 08/16/21 05:01 08:14 Temperature 97.9 F 98.4 F Pulse Rate 83 77 Respiratory 19 18 Rate Blood Pressure 146/76 125/46 O2 Sat by Pulse 94 98 Oximetry - Lab 08/13/21 05:48 08/15/21 04:09 Most recent lab results Calcium 9.0 mg/dL (8.4-10.2) 08/15/21 04:09 Phosphorus 4.20 mg/dL (2.5-4.5) 08/14/21 04:50 Medications & Allergies - Medications Allergies/Adverse Reactions: Allergies nifedipine [From Procardia] Allergy (Verified 08/13/21 14:33) muscle spasms Home Medications: Home Medications Medication Instructions Recorded Confirmed Last Taken Type Furosemide [Lasix TAB] 80 mg PO BID 02/12/18 08/13/21 04/25/18 09:00 History Sitagliptin Phosphate [Januvia] 100 mg PO DAILY 02/12/18 08/13/21 04/25/18 09:00 History allopurinoL [Allopurinol] 100 mg PO DAILY 02/12/18 08/13/21 04/25/18 09:00 History Apixaban [Eliquis] 5 mg PO Q12H 08/13/21 08/13/21 Unknown History Ascorbic Acid [Vitamin C] 500 mg PO QDAY 08/13/21 08/13/21 Unknown History Cholecalciferol (Vitamin D3) 5,000 unit PO QDAY 08/13/21 08/13/21 Unknown History [Vitamin D3 5,000 UNIT] Ferrous Sulfate [Iron 325 MG] 325 mg PO QDAY 08/13/21 08/13/21 Unknown History Folic Acid 1 mg PO QDAY 08/13/21 08/13/21 Unknown History Magnesium 250 mg PO QDAY 08/13/21 08/13/21 Unknown History Midodrine [Proamatine] 10 mg PO BID 08/13/21 08/13/21 Unknown History Pyridoxine HCl [Vitamin B-6 100MG 100 mg PO DAILY 08/13/21 08/13/21 Unknown History TAB] Active Medications: Generic Name Dose Route Start Last Admin Trade Name Freq PRN Reason Stop Dose Admin Acetaminophen 650 mg 08/12/21 21:30 Acetaminophen 325 Mg Tab PO Q4H PRN Pain MILD(1-3)/Fever >100.5/CHANG Allopurinol 100 mg 08/12/21 22:00 08/15/21 10:16 Allopurinol 100 Mg Tab PO 100 mg DAILY ARSLAN Administration Carvedilol 3.125 mg 08/12/21 22:00 08/15/21 21:55 Carvedilol 3.125 Mg Tab PO 3.125 mg BID ARSLAN Administration Hydromorphone HCl 0.5 mg 08/12/21 21:30 Hydromorphone 0.5 Mg/0.5 Ml Inj IV Q3H PRN Pain , Severe (7-10) Insulin Human Lispro 0 unit 08/13/21 07:30 08/15/21 21:56 Insulin Lispro 100 Unit/Ml SUB-Q Not Given ACHS ARSLAN Protocol Linagliptin 5 mg 08/13/21 10:00 08/15/21 10:15 Linagliptin 5 Mg Tab PO 5 mg QDAY ARSLAN Administration Lisinopril 10 mg 08/12/21 21:00 08/15/21 10:16 Lisinopril 10 Mg Tab PO 10 mg DAILY ARSLAN Administration Morphine Sulfate 2 mg 08/12/21 21:30 Morphine 2 Mg/1 Ml Inj IV Q4H PRN Pain, Moderate (4-6) Ondansetron HCl 4 mg 08/12/21 21:30 Ondansetron 4 Mg/2 Ml Inj IV Q8H PRN Nausea And Vomiting Oxycodone/Acetaminophen 1 tab 08/12/21 21:30 08/15/21 20:16 Oxycodone /Acetaminophen 5-325mg Tab PO 1 tab Q6H PRN Administration Pain, Moderate (4-6) Polyethylene Glycol 17 gm 08/12/21 20:55 Polyethylene Glycol 3350 17 Gm Powder PO QDAY PRN Constipation Rivaroxaban 15 mg 08/13/21 10:00 08/15/21 10:15 Rivaroxaban 15 Mg Tab PO 15 mg QDAY ARSLAN Administration Sodium Chloride 10 ml 08/12/21 22:00 08/15/21 21:56 Sodium Chloride 0.9% 10 Ml Flush Syringe IV 10 ml BID ARSLAN Administration Sodium Chloride 10 ml 08/12/21 21:30 Sodium Chloride 0.9% 10 Ml Flush Syringe IV PRN PRN LINE FLUSH
[2021-08-16] MEDS: carvediloL 3.125 MG TAB PO SCH (10:16)
[2021-08-16] MEDS: RIVAROXABAN 15 MG TAB PO SCH (10:16)
[2021-08-16] MEDS: LINAGLIPTIN 5 MG TAB PO SCH (10:16)
[2021-08-16] MEDS: allopurinoL 100 MG TAB PO SCH (10:17)
[2021-08-16] MEDS: LISINOPRIL 10 MG TAB PO SCH (10:17)
[2021-08-16 15:36] VITALS: BP 129/50
== END 2021-08-16 17:15 | disposition home or self-care (01) | DRG 291 ==
LOC: ED 12:59 → 4A 21:56
PROVIDERS: ADMIT Internal Medicine; ATTEND Internal Medicine
PROC: 5A1D70Z Performance of Urinary Filtration, Intermittent, Less than 6 Hours Per Day (ICD-10-PCS; principal; 2021-08-13)
PROC: 5A1D70Z Performance of Urinary Filtration, Intermittent, Less than 6 Hours Per Day (ICD-10-PCS; 2021-08-14)
PROC: 5A1D70Z Performance of Urinary Filtration, Intermittent, Less than 6 Hours Per Day (ICD-10-PCS; 2021-08-16)
DX: I13.2 Hypertensive heart and chronic kidney disease with heart failure and with stage 5 chronic kidney disease, or end stage renal disease (principal); N18.6 End stage renal disease; I50.43 Acute on chronic combined systolic (congestive) and diastolic (congestive) heart failure; Z68.41 Body mass index [BMI] 40.0-44.9, adult; M10.9 Gout, unspecified; I87.2 Venous insufficiency (chronic) (peripheral); M17.0 Bilateral primary osteoarthritis of knee; I48.91 Unspecified atrial fibrillation; E11.22 Type 2 diabetes mellitus with diabetic chronic kidney disease; J44.9 Chronic obstructive pulmonary disease, unspecified; E66.9 Obesity, unspecified; Z79.899 Other long term (current) drug therapy; Z88.8 Allergy status to other drugs, medicaments and biological substances; Z79.01 Long term (current) use of anticoagulants
CPT/HCPCS: 36415; 71045; 80048; 80053; 80061; 80074; 81001; 82140; 82962; 83036; 83880; 84100; 84484; 85025; 85610; 85730; 87040; 93005; 93306; 93925; 93970; G0378; C8929; J1644